=== PATIENT | female | born 1935 | race Caucasian/White ===

== ENCOUNTER 2016-07-19 13:25 | Inpatient (IN) | payer OTHER ==
--- NOTE | 2016-07-19 13:55 | PDOC ---
History of Present Illness - General History Source: Patient, Old Records - History of Present Illness Initial Comments: 07/19/16 14:18 The patient is a 81 year old female brought via EMS, with a significant past medical history of skin CA (nose), AFIB, HTN and diabetes, who presents to the emergency department with left lower extremity pain and weakness. She reports that she has been having this complication for the past few months but exacerbated yesterday. She states that she is unable to walk due to the pain and the lack of power in her extremity. She reports that the pain is localized throughout her extremity, ranging from mild to moderate. The patient denies chest pain, shortness of breath, headache and dizziness. Denies fever, chills, nausea, vomit, diarrhea and constipation. Denies dysuria, frequency, urgency and hematuria. Allergies: None Past surgical history: left 3rd and 4th toe amputation Social history: No alcohol, tobacco or drug use reported PMD - Dr. Ina Tucker Vascular surgeon - Dr. Pitts <Qasim Tovar - Last Filed: 07/19/16 17:08> <Farhan Chambers - Last Filed: 07/19/16 17:14> - General Stated Complaint: LEG PAIN Time Seen by Provider: 07/19/16 13:55 Past History <Qasim Tovar - Last Filed: 07/19/16 17:08> - Past Medical History Cancer: Yes (SKIN CANCER-NOSE) Diabetes: Yes HTN: Yes - Surgical History Orthopedic Surgery: Yes - Psycho/Social/Smoking Cessation Hx Anxiety: No Suicidal Ideation: No Smoking Status: No Smoking History: Never smoked Have you smoked in the past 12 months: No Number of Cigarettes Smoked Daily: 0 Hx Alcohol Use: No Drug/Substance Use Hx: No Substance Use Type: None Hx Substance Use Treatment: No <Farhan Chambers - Last Filed: 07/19/16 17:14> - Past Medical History Allergies/Adverse Reactions: Allergies Allergy/AdvReac Type Severity Reaction Status Date / Time No Known Allergies Allergy Verified 03/09/16 12:46 Home Medications: Ambulatory Orders Alprazolam [Alprazolam ER] 1 mg PO BID 03/09/16 Apixaban [Eliquis] 2.5 mg PO BID 03/09/16 Linagliptin [Tradjenta] 5 mg PO DAILY 03/09/16 Amlodipine Besylate [Norvasc -] 5 mg PO DAILY #30 tablet 03/20/16 Furosemide [Lasix -] 40 mg PO DAILY #30 tablet 03/20/16 Metoprolol Succinate [Toprol XL -] 50 mg PO BID #60 tab.sr.24h 03/20/16 Review of Systems - Review of Systems Able to Perform ROS?: Yes Comments:: 07/19/16 14:18 GENERAL/CONSTITUTIONAL: No fever or chills. HEAD, EYES, EARS, NOSE AND THROAT: No change in vision. No ear pain or discharge. No sore throat. CARDIOVASCULAR: No chest pain or shortness of breath RESPIRATORY: No cough, wheezing, or hemoptysis. GASTROINTESTINAL: No nausea, vomiting, diarrhea or constipation. GENITOURINARY: No dysuria, frequency, or change in urination. MUSCULOSKELETAL: No joint or muscle swelling or pain. No neck or back pain. EXTREMITIES: +Left lower extremity pain and weakness. SKIN: No rash NEUROLOGIC: No headache, vertigo, loss of consciousness, or change in strength/ sensation. ENDOCRINE: No increased thirst. No abnormal weight change HEMATOLOGIC/LYMPHATIC: No anemia, easy bleeding, or history of blood clots. ALLERGIC/IMMUNOLOGIC: No hives or skin allergy. <Qasim Tovar - Last Filed: 07/19/16 17:08> *Physical Exam - Physical Exam Comments: 07/19/16 14:19 GENERAL: +Morbidly obese. Awake, alert, and fully oriented, in no acute distress HEAD: No signs of trauma, normocephalic, atraumatic EYES: PERRLA, EOMI, sclera anicteric, conjunctiva clear ENT: Auricles normal inspection, hearing grossly normal, nares patent, oropharynx clear without exudates. Moist mucosa NECK: Normal ROM, supple, no lymphadenopathy, JVD, or masses LUNGS: No distress, speaks full sentences, clear to auscultation bilaterally HEART: Regular rate and rhythm, normal S1 and S2, no murmurs, rubs or gallops, peripheral pulses normal and equal bilaterally. ABDOMEN: Soft, nontender, normoactive bowel sounds. No guarding, no rebound. No masses EXTREMITIES: +Feet and calf are erythematous but not warm. Left foot 3rd and 4th toe amputation. Normal range of motion. No clubbing or cyanosis. NEUROLOGICAL: Cranial nerves II through XII grossly intact. Normal speech, no focal sensorimotor deficits SKIN: Warm, Dry, normal turgor, no rashes or lesions noted. <Qasim Tovar - Last Filed: 07/19/16 17:08> ED Treatment Course - LABORATORY CBC & Chemistry Diagram: 07/19/16 15:00 07/19/16 15:00 - RADIOLOGY Radiograph Interpretation: 07/19/16 17:08 Chest X-Ray Reviewed by: Dr. Jaiden Berry Impression: Patient rotated which marked;y limits evaluation. Bilateral foot x-ray Reviewed by: Dr. Jaiden Berry Impression: Marked demineralization which hinders evaluation. Faint linear density at the neck of the fourth and fifth distal left metatarsals raising possibility of fractures and recommend clinical correlation for point tenderness. Soft tissue swelling bilaterally consistent with cellulitis. There is question of tiny erosions at the IP joint of the big toe of the left foot, corrlated for possible septic arthritis. <Qasim Tovar - Last Filed: 07/19/16 17:08> - LABORATORY CBC & Chemistry Diagram: 07/19/16 15:00 07/19/16 15:00 <Farhan Chambers - Last Filed: 07/19/16 17:14> Medical Decision Making - Medical Decision Making 07/19/16 14:22 It is not clear wether she can't walk due to the pain or due to the weakness. <Qasim Tovar - Last Filed: 07/19/16 17:08> *DC/Admit/Observation/Transfer - Attestations Scribe Attestion: 07/19/16 14:18 Documentation prepared by Qasim Tovar, acting as medical research associate for Farhan Chambers MD <Qasim Tovar - Last Filed: 07/19/16 17:08> - Discharge Dispostion Admit: Yes - Attestations Physician Attestion: 07/19/16 13:55 I, Dr. Farhan Chambers, attest that this document has been prepared under my direction and personally reviewed by me in its entirety. I further attest, that it accurately reflects all work, treatment, procedures and medical decision -making performed by me. <Farhan Chambers - Last Filed: 07/19/16 17:14> Diagnosis at time of Disposition: Cellulitis of both feet - Discharge Dispostion Condition at time of disposition: Improved - Referrals Referrals: Ina Tucker MD [Primary Care Provider] -
[2016-07-19 15:16] LABS: BASOPHIL 0.9 % (0-2.0); EOSINOPHIL 2.2 % (0-4.5); MCH 26.7 pg (25.7-33.7); MCHC 32.1 g/dl (32.0-36.0); MEAN CELL VOLUME 83.3 fl (80-96); MEAN PLT VOLUME 8.5 fl (7.5-11.1); NEUTROPHILS 84.7 % (42.8-82.8); PLATELET COUNT 269 K/MM3 (134-434)
[2016-07-19 15:33] LABS: INR 1.4 (0.82-1.09); PROTHROMBIN TIME (PATIENT) 15.5 SEC (9.98-11.88)
[2016-07-19 15:35] LABS: ALBUMIN 3.2 g/dl (3.4-5.0); ANION GAP 10 (8-16); BILIRUBIN,TOTAL 0.3 mg/dL (0.2-1.0); CALCIUM 9.1 mg/dL (8.5-10.1); CO2 25 mmol/L (21-32); CREATININE 1.9 mg/dL (0.55-1.02); GLUCOSE,RANDOM 168 mg/dL (74-106); SGOT/AST 17 U/L (15-37); SGPT/ALT 20 U/L (12-78); TOT PROT 7.4 g/dl (6.4-8.2)
[2016-07-19 15:38] LABS: ALK PHOS 113 U/L (45-117); TROPONIN I < 0.02 ng/ml (0.00-0.05)
[2016-07-19 16:25] LABS: URINE APPEARANCE CLOUDY; URINE BILIRUBIN NEGATIVE (NEGATIVE); URINE COLOR LTYELLOW; URINE GLUCOSE (UA) NEGATIVE (NEGATIVE); URINE KETONE NEGATIVE (NEGATIVE); URINE NITRITE NEGATIVE (NEGATIVE); URINE UROBILINOGEN NEGATIVE E.U./dl (0.2-1.0)
[2016-07-19 16:48] LABS: ERYTHROCYTE SEDIMENTATION RATE 50 mm/hr (0-30)
[2016-07-19] MEDS ORDERED: VANCOMYCIN 1,000 MG in DEXTROSE 5%-WATER - 250 ML IVPB ONE (17:08)
[2016-07-19 17:09] LABS: URINE BLOOD 1+ (NEGATIVE); URINE LEUK ESTERASE 3+ (NEGATIVE); URINE PROTEIN 2+ (NEGATIVE)
[2016-07-19] MEDS ORDERED: PIPERACILLIN/TAZOB 3.375 GM/50 ML PRE-DOCKED IV ONE (17:09)
[2016-07-19 17:11] LABS: URINE BACTERIA MODERATE /hpf (NONE SEEN); URINE HYALINE CAST 4 /lpf; URINE MUCUS RARE; URINE RBC 1 /hpf (0-3); URINE WBC 107 /hpf (3-5)
[2016-07-19] MEDS ORDERED: VANCOMYCIN 1 GRAM (PRE-DOCKED) 250 ML IVPB ONE (17:31)
[2016-07-19] MEDS ORDERED: PIPERACILLIN/TAZOB 3.375 GM 50 ML IVPB ONE (17:32)
--- NOTE | 2016-07-19 20:04 | CONSULT ---
Consult Consult Specialty:: infectious diseases Referred by:: Reason for Consultation:: bilateral cellulitits - History of Present Illness Chief Complaint: unable to ambulate. pain in the legs History of Present Illness: 81 yo F ho Diabetes, h/o foot infections in the past requiring toe amputations, presents with increased unsteadiness on feet and swelling in feet. Was hospitalized in March of this past year and was seen by vascualr doctor, but has ot followed up with vascular as outpatient. Notes that she had seen her PMD and was to be seen again next week to re-examine her feet. Denies any fevers, but does note that her blood sugar was slightly higher lately. according to the patient she was ambulating about a week back and the legs started swelling and becoming red and patient could not ambulate any more and cane to the hospital also patient has not had any steady PCP and now is going to be seen by patient also noticed that she has small blisters on the legs which were not there before patient is c/o of p[ain in the legs - History Source History Provided By: Patient, Medical Record Limitations to Obtaining History: No Limitations - Past Medical History Cardio/Vascular: Yes: AFIB, CHF, HTN, Pulmonary Hypertension, Other (pad) Endocrine: Yes: Diabetes Mellitus - Past Surgical History Past Surgical History: Yes: Amputation - Alcohol/Substance Use Hx Alcohol Use: No - Smoking History Smoking history: Never smoked Have you smoked in the past 12 months: No Aproximately how many cigarettes per day: 0 - Social History ADL: Independent History of Recent Travel: No Home Medications - Allergies Allergies/Adverse Reactions: Allergies Allergy/AdvReac Type Severity Reaction Status Date / Time No Known Allergies Allergy Verified 03/09/16 12:46 - Home Medications Home Medications: Ambulatory Orders Alprazolam [Alprazolam ER] 1 mg PO BID PRN 03/09/16 Apixaban [Eliquis] 2.5 mg PO BID 03/09/16 Linagliptin [Tradjenta] 5 mg PO DAILY 03/09/16 Amlodipine Besylate [Norvasc -] 5 mg PO DAILY #30 tablet 03/20/16 Furosemide [Lasix -] 40 mg PO DAILY #30 tablet 03/20/16 Metoprolol Succinate [Toprol XL -] 50 mg PO BID #60 tab.sr.24h 03/20/16 Acetaminophen [Tylenol -] 1,000 mg PO PRN PRN 07/20/16 Paxil 20 mg PO DAILY 07/20/16 Review of Systems - Review of Systems Constitutional: reports: No Symptoms Eyes: reports: No Symptoms HENT: reports: No Symptoms Neck: reports: No Symptoms Cardiovascular: reports: No Symptoms Respiratory: reports: No Symptoms Gastrointestinal: reports: No Symptoms Genitourinary: reports: No Symptoms Musculoskeletal: reports: Extremity Pain, Muscle Pain, Other Integumentary: reports: Change in Color, Erythema, Other Neurological: reports: No Symptoms Endocrine: reports: No Symptoms Hematology/Lymphatic: reports: No Symptoms Psychiatric: reports: No Symptoms Physical Exam Vital Signs: Vital Signs Temperature 98.7 F 07/19/16 14:08 Pulse Rate 67 07/19/16 14:08 Respiratory Rate 18 07/19/16 14:08 Blood Pressure 150/70 07/19/16 14:08 O2 Sat by Pulse Oximetry (%) 98 07/19/16 14:28 Constitutional: Yes: Well Nourished, Calm, Obese Eyes: Yes: Conjunctiva Clear HENT: Yes: Atraumatic Neck: Yes: Supple, Trachea Midline Cardiovascular: Yes: Regular Rate and Rhythm, Pulse Irregular Respiratory: Yes: Regular, Poor Air Entry, Rhonchi Gastrointestinal: Yes: Normal Bowel Sounds, Soft Musculoskeletal: Yes: Muscle Pain, Other Extremities: Yes: Erythema (bilateral lower ext) Edema: LLE: 1+, RLE: 1+ Wound/Incision: Yes: Other Neurological: Yes: Alert, Oriented Psychiatric: Yes: Alert, Oriented Imaging - Results Chest X-ray: Report Reviewed, Image Reviewed Assessment/Plan Assessment/Plan (1) Cellulitis of both feet Code(s): L03.115 - CELLULITIS OF RIGHT LOWER LIMB L03.116 - CELLULITIS OF LEFT LOWER LIMB (2) Diabetes Code(s): E11.9 - TYPE 2 DIABETES MELLITUS WITHOUT COMPLICATIONS (3) Renal insufficiency Code(s): N28.9 - DISORDER OF KIDNEY AND URETER, UNSPECIFIED (4) Hypertension Code(s): I10 - ESSENTIAL (PRIMARY) HYPERTENSION (5) Afib Code(s): I48.91 - UNSPECIFIED ATRIAL FIBRILLATION plan will do xray of the legs to see any findings iv abx elevation of the legs close monitoring
--- NOTE | 2016-07-19 20:07 | HP ---
Admitting History and Physical - Admission Chief Complaint: foot pain, unstaediness History of Present Illness: 81 yo F ho Diabetes, h/o foot infections in the past requiring toe amputations, presents with increased unsteadiness on feet and swelling in feet. Was hospitalized in March of this past year [facility], but has ot followed up with vascular as outpatient. Notes that she had seen her PMD and was to be seen again next week to re-examine her feet. Denies any fevers, but does note that her blood sugar was slightly higher lately. History Source: Patient, Medical Record Limitations to Obtaining History: No Limitations - Past Medical History Cardiovascular: Yes: AFIB, CHF, HTN, Pulmonary Hypertension, Other (pad) Renal/: Yes: Renal Inusuff Endocrine: Yes: Diabetes Mellitus - Past Surgical History Past Surgical History: Yes: Amputation - Smoking History Smoking history: Never smoked Have you smoked in the past 12 months: No Aproximately how many cigarettes per day: 0 - Alcohol/Substance Use Hx Alcohol Use: No - Social History ADL: Independent Occupation: former clerical work History of Recent Travel: No Other Social History: , 1 son Home Medications - Allergies Allergies/Adverse Reactions: Allergies Allergy/AdvReac Type Severity Reaction Status Date / Time No Known Allergies Allergy Verified 03/09/16 12:46 - Home Medications Home Medications: Ambulatory Orders Alprazolam [Alprazolam ER] 1 mg PO BID 03/09/16 Apixaban [Eliquis] 2.5 mg PO BID 03/09/16 Linagliptin [Tradjenta] 5 mg PO DAILY 03/09/16 Amlodipine Besylate [Norvasc -] 5 mg PO DAILY #30 tablet 03/20/16 Furosemide [Lasix -] 40 mg PO DAILY #30 tablet 03/20/16 Metoprolol Succinate [Toprol XL -] 50 mg PO BID #60 tab.sr.24h 03/20/16 Family Disease History - Family Disease History Family History: Unremarkable Review of Systems - Review of Systems Constitutional: denies: Chills, Fever, Loss of Appetite Eyes: reports: No Symptoms HENT: denies: Difficult Swallowing, Epistaxis Neck: denies: Decreased ROM, Stiffness Cardiovascular: denies: Chest Pain, Palpitations Respiratory: denies: Cough, SOB Gastrointestinal: denies: Abdominal Pain, Bloating, Diarrhea, Nausea, Vomiting Genitourinary: denies: Burning, Discharge, Dysuria Neurological: denies: Change in LOC Physical Examination Vital Signs: Vital Signs Temperature 98.7 F 07/19/16 14:08 Pulse Rate 67 07/19/16 14:08 Respiratory Rate 18 07/19/16 14:08 Blood Pressure 150/70 07/19/16 14:08 O2 Sat by Pulse Oximetry (%) 98 07/19/16 14:28 Constitutional: Yes: No Distress, Calm Eyes: Yes: Conjunctiva Clear, EOM Intact, PERRL HENT: Yes: Atraumatic, Normocephalic Neck: Yes: Supple, Trachea Midline Cardiovascular: Yes: Regular Rate and Rhythm, S1, S2. No: Murmur Respiratory: Yes: Regular, CTA Bilaterally. No: Rales, Rhonchi, Wheezes Gastrointestinal: Yes: Normal Bowel Sounds, Soft. No: Distention, Tenderness Extremities: Yes: Other (amputated toes on b/l feet, erythema, mild edema) Edema: Yes Edema: LLE: Trace, RLE: Trace Neurological: Yes: Alert, Oriented Labs: Laboratory Tests 07/19/16 07/19/16 07/19/16 15:00 15:00 15:00 WBC 15.0 H RBC 3.84 Hgb 10.3 L Hct 32.0 L MCV 83.3 MCHC 32.1 RDW 15.0 Plt Count 269 MPV 8.5 Neutrophils % 84.7 H Lymphocytes % 6.2 L D Monocytes % 6.0 Eosinophils % 2.2 Basophils % 0.9 ESR 50 H INR 1.40 H Sodium 142 Potassium 4.1 Chloride 107 Carbon Dioxide 25 Anion Gap 10 BUN 59 H Creatinine 1.9 H Creat Clearance w eGFR 25.44 Random Glucose 168 H D Lactic Acid Calcium 9.1 Total Bilirubin 0.3 AST 17 D ALT 20 Alkaline Phosphatase 113 Creatine Kinase 119 Troponin I < 0.02 Total Protein 7.4 Albumin 3.2 L Urine Color Urine Appearance Urine pH Ur Specific [place] Urine Protein Urine Glucose (UA) Urine Ketones Urine Blood Urine Nitrite Urine Bilirubin Urine Urobilinogen Ur Leukocyte Esterase Urine RBC Urine WBC Ur Epithelial Cells Urine Bacteria Hyaline Casts Urine Mucus 07/19/16 07/19/16 15:00 15:50 WBC RBC Hgb Hct MCV MCHC RDW Plt Count MPV Neutrophils % Lymphocytes % Monocytes % Eosinophils % Basophils % ESR INR Sodium Potassium Chloride Carbon Dioxide Anion Gap BUN Creatinine Creat Clearance w eGFR Random Glucose Lactic Acid 1.056 Calcium Total Bilirubin AST ALT Alkaline Phosphatase Creatine Kinase Troponin I Total Protein Albumin Urine Color Ltyellow Urine Appearance Cloudy Urine pH 5.0 Ur Specific [place] 1.012 Urine Protein 2+ H Urine Glucose (UA) Negative Urine Ketones Negative Urine Blood 1+ H Urine Nitrite Negative Urine Bilirubin Negative Urine Urobilinogen Negative Ur Leukocyte Esterase 3+ H Urine RBC 1 Urine WBC 107 Ur Epithelial Cells Rare Urine Bacteria Moderate Hyaline Casts 4 Urine Mucus Rare Problem List - Problems (1) Cellulitis of both feet Assessment/Plan: -start abx, -id consult -vascular consult, as h/o toe amputations (PAD?) -IV lasix for now (was on PO at home) Code(s): L03.115 - CELLULITIS OF RIGHT LOWER LIMB L03.116 - CELLULITIS OF LEFT LOWER LIMB (2) Diabetes Assessment/Plan: -start novolog sliding scale Code(s): E11.9 - TYPE 2 DIABETES MELLITUS WITHOUT COMPLICATIONS (3) Renal insufficiency Assessment/Plan: -renal to consult, given insufficiency and abx use Code(s): N28.9 - DISORDER OF KIDNEY AND URETER, UNSPECIFIED (4) Hypertension Assessment/Plan: -cont amlodipine, metoprolol Code(s): I10 - ESSENTIAL (PRIMARY) HYPERTENSION (5) Afib Assessment/Plan: -cont Eliquis Code(s): I48.91 - UNSPECIFIED ATRIAL FIBRILLATION
[2016-07-19] MEDS: INSULIN SLIDING SCALE (NOVOLOG) 1 VIAL SQ SCH (23:00)
[2016-07-19] MEDS: APIXABAN 2.5 MG TABLET PO SCH (23:00)
[2016-07-19] MEDS: METOPROLOL SUCCINATE 50 MG TAB.SR.24H (FP) PO SCH (23:00)
[2016-07-19 23:59] VITALS: BMI 47.2
[2016-07-20] MEDS: ALPRAZolam 2 MG TABLET PO PRN ×2 (00:24→10:20)
[2016-07-20] MEDS ORDERED: PIPERACILLIN/TAZOB 2.25 GM 2.25 GM in DEXTROSE 5%-WATER - 50 ML IVPB SCH (02:00)
[2016-07-20] MEDS: PIPERACILLIN/TAZOB 2.25 GM 50 ML IVPB SCH ×3 (02:19→17:03)
[2016-07-20] MEDS: INSULIN SLIDING SCALE (NOVOLOG) 1 VIAL SQ SCH ×4 (06:56→21:28)
[2016-07-20] MEDS: sitaGLIPtin PHOSPHATE 25 MG TABLET (FP) PO SCH (07:01)
[2016-07-20 07:30] LABS: BASOPHIL 0.5 % (0-2.0); EOSINOPHIL 2.3 % (0-4.5); MCH 27.1 pg (25.7-33.7); MCHC 32.3 g/dl (32.0-36.0); MEAN CELL VOLUME 84.1 fl (80-96); MEAN PLT VOLUME 8.1 fl (7.5-11.1); NEUTROPHILS 90.1 % (42.8-82.8); PLATELET COUNT 233 K/MM3 (134-434); RDW 14.8 % (11.6-15.6)
[2016-07-20 09:00] LABS: ALBUMIN 2.8 g/dl (3.4-5.0); CALCIUM 8.6 mg/dL (8.5-10.1)
[2016-07-20 09:05] LABS: BILIRUBIN,TOTAL 0.7 mg/dL (0.2-1.0); CREATININE 1.6 mg/dL (0.55-1.02); TOT PROT 6.6 g/dl (6.4-8.2)
[2016-07-20] MEDS ORDERED: PATIENT'S OWN MEDICATION (NON-FORMULARY) (Linagliptin [Tradjenta] 5 MG) PO SCH (10:00)
[2016-07-20] MEDS: METOPROLOL SUCCINATE 50 MG TAB.SR.24H (FP) PO SCH ×2 (10:18→21:30)
[2016-07-20] MEDS: amLODIPine BESYLATE 5 MG TABLET (FP) PO SCH (10:18)
[2016-07-20] MEDS: APIXABAN 2.5 MG TABLET PO SCH ×2 (10:18→21:30)
[2016-07-20] MEDS: FUROSEMIDE 40 MG/4 ML INJECTABLE VIAL IVPUSH SCH (10:19)
[2016-07-20] MEDS: NYSTATIN POWDER 100,000 UNITS/GM - 15 GM TOPICAL POWDER TP SCH ×2 (10:19→21:28)
[2016-07-20] MEDS: VANCOMYCIN 1 GRAM (PRE-DOCKED) 250 ML IVPB SCH (10:19)
--- NOTE | 2016-07-20 12:42 | CONSULT ---
- Consultation REQUESTING PROVIDER: Dr. Patiño CONSULT REQUEST: We have been asked to surgically evaluate this patient for cellulitis. PCP:Emir Sims MD HISTORY OF PRESENT ILLNESS:The patient is a 81 yo female with a pmhx of afib. She came to the ER for evaluation of swelling and redness to her lower ext. She states that her legs feel heavy and she is having difficulty ambulating.She was treated for these symptoms last March and was to follow-up with Dr. Patiño in the wound clinic and was scheduled to see him last week but was unable to because of the weather. She denies any fever or chills and hasn't noted any drainage. PMHx: DM, a fib, htn PSHx: hysterectomy, cancer excision on nose, 3/4 partial toe amp for trauma Home Medications Medication Instructions Recorded Alprazolam [Alprazolam ER] 1 mg PO BID PRN 03/09/16 Apixaban [Eliquis] 2.5 mg PO BID 03/09/16 Linagliptin [Tradjenta] 5 mg PO DAILY 03/09/16 Amlodipine Besylate [Norvasc -] 5 mg PO DAILY #30 tablet 03/20/16 Furosemide [Lasix -] 40 mg PO DAILY #30 tablet 03/20/16 Metoprolol Succinate [Toprol XL -] 50 mg PO BID #60 tab.sr.24h 03/20/16 Acetaminophen [Tylenol -] 1,000 mg PO PRN PRN 07/20/16 Paxil 20 mg PO DAILY 07/20/16 Allergies Allergy/AdvReac Type Severity Reaction Status Date / Time No Known Allergies Allergy Verified 03/09/16 12:46 REVIEW OF SYSTEMS: CONSTITUTIONAL: Absent: fever, chills CARDIOVASCULAR: Absent: chest pain, syncope Present: peripheral edema RESPIRATORY: Absent: cough, shortness of breath GASTROINTESTINAL: Absent: abdominal pain, abdominal distension GENITOURINARY: Absent: dysuria, hematuria MUSCULOSKELETAL: Present: joint pain, intermittent SKIN: Present: redness to lower ext, swelling HEMATOLOGIC/IMMUNOLOGIC: Absent: easy bleeding, easy bruising NEUROLOGIC: Absent: headache, seizure Present: unsteady gait, ambulates with walker PHYSICAL EXAM: GENERAL: Awake, alert, and fully oriented, in no acute distress. HEAD: Normal with no signs of trauma. EYES: PERRL, sclera anicteric, conjunctiva clear. NECK: Normal ROM, supple without lymphadenopathy, JVD, or masses. left EJ IV LUNGS: Clear to auscultation bilat anteriorly. No wheezes, and no crackles. No accessory muscle use. HEART: Regular rate and irregular rhythm. ABDOMEN: Soft, nontender, not distended. Obese MUSCULOSKELETAL: No bony deformities or tenderness. No CVA tenderness. UPPER EXTREMITIES: 2+ pulses, warm, well-perfused. No cyanosis. Cap refill <2 seconds. No peripheral edema. LOWER EXTREMITIES: 2+ pulses, warm, well-perfused. No calf tenderness. b/l peripheral edema. mild erythema with evidnece of decreased swelling. dry skin removed off of right great toe/second toe. Great toe with tip of toe with pink wound base. second toe with nail bed missing, small amount of purulent drainage from nail bed. 3/4 toe with healed amp site. NEUROLOGICAL: Normal speech, gait not observed. PSYCH: Cooperative. Good eye contact. Appropriate mood and affect. SKIN: Warm, dry, normal turgor, mild erythema to feet. Vital Signs Temperature 97.9 F 07/20/16 06:00 Pulse Rate 92 H 07/20/16 06:00 Respiratory Rate 18 07/20/16 06:00 Blood Pressure 155/75 07/20/16 06:00 O2 Sat by Pulse Oximetry (%) 96 07/20/16 09:00 Lab Results WBC 15.0 K/mm3 (4.0-10.0) H 07/20/16 06:00 RBC 3.70 M/mm3 (3.60-5.2) 07/20/16 06:00 Hgb 10.0 GM/dL (10.7-15.3) L 07/20/16 06:00 Hct 31.1 % (32.4-45.2) L 07/20/16 06:00 MCV 84.1 fl (80-96) 07/20/16 06:00 MCHC 32.3 g/dl (32.0-36.0) 07/20/16 06:00 RDW 14.8 % (11.6-15.6) 07/20/16 06:00 Plt Count 233 K/MM3 (134-434) 07/20/16 06:00 Sodium 144 mmol/L (136-145) 07/20/16 06:00 Potassium 4.2 mmol/L (3.5-5.1) 07/20/16 06:00 Chloride 110 mmol/L (98-107) H 07/20/16 06:00 Carbon Dioxide 24 mmol/L (21-32) 07/20/16 06:00 Anion Gap 10 (8-16) 07/20/16 06:00 BUN 48 mg/dL (7-18) H 07/20/16 06:00 Creatinine 1.6 mg/dL (0.55-1.02) H 07/20/16 06:00 Random Glucose 144 mg/dL (74-106) H 07/20/16 06:00 Calcium 8.6 mg/dL (8.5-10.1) 07/20/16 06:00 INR 1.40 (0.82-1.09) H 07/19/16 15:00 Xray to lower ext b/l: edema, no foreign bodies A/P: 81 yo female with chronic LE edema bilaterally with mild erythema/ swelling. Her lower ext show evidence of improved swelling. Also noted was a left great toe superficial great toe(tip) wound and missing left toenail Wound care orders for bacitracin to left great toe/second toe. She also needs b/l lower ext compression with ILYA wraps while in the hospital IV abx as per ID Pt to follow-up in wound clininc as an outpt D/w Dr. Patiño Visit type - Case Type Case Type: ED Admission - Emergency Emergency Visit: Yes ED Registration Date: 07/19/16 Care time: The patient presented to the Emergency Department on the above date and was hospitalized for further evaluation of their emergent condition. - New patient This patient is new to me today: Yes Date on this admission: 07/20/16 - Critical Care Critical Care patient: No
--- NOTE | 2016-07-20 12:47 | EKG ---
Test Reason : Blood Pressure : / mmHG Vent. 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
--- NOTE | 2016-07-20 13:35 | CONSULT ---
Consult - text type - Consultation Consultation Note: Renal Consult for CKD This is a 81 year old woman with PMhx of CKD stage 3 (Cr ~2 on most recent discharge). DM Type 2 + retinopathy, Hypertension, Peripheral Neuropathy who presented with tenderness, pain and difficulty ambulating and noted to have BUN/ Cr of 59/1.9. Pt states that her foot has become increaslinly red and tender with increased swelling. Pt denies any change in urine output. Has been on Lasix BID. No NSAID use. No SOB, chest pian, Abd pain, N/V/D, change in apatite. PMhx: as above Allergies: NKDA Family Hx: NC Social Hx: No T/A/D ROS: as per HPI, all other ros negative Home Meds: Home Medications Medication Instructions Recorded Alprazolam [Alprazolam ER] 1 mg PO BID PRN 03/09/16 Apixaban [Eliquis] 2.5 mg PO BID 03/09/16 Linagliptin [Tradjenta] 5 mg PO DAILY 03/09/16 Amlodipine Besylate [Norvasc -] 5 mg PO DAILY #30 tablet 03/20/16 Furosemide [Lasix -] 40 mg PO DAILY #30 tablet 03/20/16 Metoprolol Succinate [Toprol XL -] 50 mg PO BID #60 tab.sr.24h 03/20/16 Acetaminophen [Tylenol -] 1,000 mg PO PRN PRN 07/20/16 Paxil 20 mg PO DAILY 07/20/16 Vital Signs Temperature 100.1 F H 07/20/16 14:15 Pulse Rate 91 H 07/20/16 14:15 Respiratory Rate 20 07/20/16 14:15 Blood Pressure 161/82 07/20/16 14:15 O2 Sat by Pulse Oximetry (%) 96 07/20/16 09:00 Intake & Output 07/17/16 07/18/16 07/19/16 07/20/16 23:59 23:59 23:59 23:59 Intake Total 300 Output Total 300 700 Balance -300 -400 Weight 301 lb 8 oz 301 lb 8 oz Gen: NAD, awake and alert HEENT: NC/AT, MMM, No JVD, Neck Supple CVS: Irregular, No M/R Abd: Soft NT/ND Ext: 1+ edema in b/l LE, Left food in dressing. Clean and intact. : No bladder distension, no CVA tenderness Neuro: AAOX3, no focal defects CBC, BMP 07/20/16 06:00 07/20/16 06:00 Laboratory Tests 07/19/16 07/20/16 15:50 06:00 Calcium 8.6 Albumin 2.8 L Urine Protein 2+ H Urine Blood 1+ H Ur Leukocyte Esterase 3+ H Urine RBC 1 Urine WBC 107 Current Medications Acetaminophen (Tylenol -) 650 mg PO Q6H PRN PRN Reason: FEVER OR PAIN Alprazolam (Xanax -) 1 mg PO Q12H PRN Last Admin: 07/20/16 10:20 Dose: 1 mg Amlodipine Besylate (Norvasc -) 5 mg PO DAILY [facility] Last Admin: 07/20/16 10:18 Dose: 5 mg Apixaban (Eliquis -) 2.5 mg PO BID [facility] Last Admin: 07/20/16 10:18 Dose: 2.5 mg Furosemide (Lasix Injection -) 40 mg IVPUSH DAILY [facility] Last Admin: 07/20/16 10:19 Dose: 40 mg Vancomycin HCl (Vancomycin (Pre-Docked)) 250 mls @ 250 mls/hr IVPB DAILY [facility] PRN Reason: Protocol Last Admin: 07/20/16 10:19 Dose: 250 mls/hr Piperacillin Sod/Tazobactam Sod (Zosyn 2.25gm Ivpb (Pre-Docked)) 50 mls @ 100 mls/hr IVPB Q8H-IV [facility] PRN Reason: Protocol Last Admin: 07/20/16 10:18 Dose: 100 mls/hr Insulin Aspart (Novolog Vial Sliding Scale -) 1 vial SQ ACHS [facility] PRN Reason: Protocol Last Admin: 07/20/16 11:57 Dose: Not Given Metoprolol Succinate (Toprol Xl -) 50 mg PO BID [facility] Last Admin: 07/20/16 10:18 Dose: 50 mg Nystatin (Nystop Powder -) 1 applic TP BID [facility] Last Admin: 07/20/16 10:19 Dose: 1 applic Sitagliptin Phosphate (Januvia -) 25 mg PO DAILY@0700 [facility] Last Admin: 07/20/16 07:01 Dose: 25 mg A/P 81 year old woman with PMhx of CKD stage 3 (Cr ~2 on most recent discharge). DM Type 2 + retinopathy, Hypertension, Peripheral Neuropathy who presented with tenderness, pain and difficulty ambulating and noted to have BUN/Cr of 59/1.9. #CKD Stage 3 with subnephrotic proteinuria Renal function appears stable/slightly improved from last admission pt is non-oliguric Check UA, UPCR Continue presnt management including diuretics, trend BUN/Cr and electrolytes daily Dose all meds for Cr Cl ~30 Avoid NSAIDs, and IV contrast if possible #LE wound/Cellulitis Continue Emperic Abx as per ID Vascualar follow up pain control Redose Vanco by levels #DM Type 2 Check Hgb A1C Insulin sliding scale Thank you Will follow James Wright DO
--- NOTE | 2016-07-20 15:10 | PN ---
Progress Note, Physician Chief Complaint: Ms Polo complains that she has pain in both her legs and that they are still red. Denies cp, sob, n/v. - Current Medication List Current Medications: Active Medications Acetaminophen (Tylenol -) 650 mg PO Q6H PRN PRN Reason: FEVER OR PAIN Alprazolam (Xanax -) 1 mg PO Q12H PRN Last Admin: 07/20/16 10:20 Dose: 1 mg Amlodipine Besylate (Norvasc -) 5 mg PO DAILY [facility] Last Admin: 07/20/16 10:18 Dose: 5 mg Apixaban (Eliquis -) 2.5 mg PO BID [facility] Last Admin: 07/20/16 10:18 Dose: 2.5 mg Furosemide (Lasix Injection -) 40 mg IVPUSH DAILY [facility] Last Admin: 07/20/16 10:19 Dose: 40 mg Vancomycin HCl (Vancomycin (Pre-Docked)) 250 mls @ 250 mls/hr IVPB DAILY [facility] PRN Reason: Protocol Last Admin: 07/20/16 10:19 Dose: 250 mls/hr Piperacillin Sod/Tazobactam Sod (Zosyn 2.25gm Ivpb (Pre-Docked)) 50 mls @ 100 mls/hr IVPB Q8H-IV [facility] PRN Reason: Protocol Last Admin: 07/20/16 10:18 Dose: 100 mls/hr Insulin Aspart (Novolog Vial Sliding Scale -) 1 vial SQ ACHS [facility] PRN Reason: Protocol Last Admin: 07/20/16 11:57 Dose: Not Given Metoprolol Succinate (Toprol Xl -) 50 mg PO BID [facility] Last Admin: 07/20/16 10:18 Dose: 50 mg Nystatin (Nystop Powder -) 1 applic TP BID [facility] Last Admin: 07/20/16 10:19 Dose: 1 applic Sitagliptin Phosphate (Januvia -) 25 mg PO DAILY@0700 [facility] Last Admin: 07/20/16 07:01 Dose: 25 mg - Objective Vital Signs: Vital Signs Temperature 100.1 F H 07/20/16 14:15 Pulse Rate 91 H 07/20/16 14:15 Respiratory Rate 20 07/20/16 14:15 Blood Pressure 161/82 07/20/16 14:15 O2 Sat by Pulse Oximetry (%) 96 07/20/16 09:00 Constitutional: Yes: No Distress, Calm, Obese Cardiovascular: Yes: Pulse Irregular. No: Tachycardia, Gallop, Murmur, Rub Respiratory: Yes: Regular, CTA Bilaterally. No: Rales, Rhonchi, Wheezes Gastrointestinal: Yes: Normal Bowel Sounds, Soft. No: Distention, Tenderness Extremities: Yes: Erythema Edema: Yes Edema: LLE: 2+, RLE: 2+ Labs: CBC, BMP 07/20/16 06:00 07/20/16 06:00 INR, PTT INR 1.40 (0.82-1.09) H 07/19/16 15:00 Assessment/Plan (1) Cellulitis of both feet Assessment/Plan: -appreciate ID assistance -still with pain -continue vancomycin and zosyn per ID -follow up cultures -vascular surgery consulted, ? insufficiency Code(s): L03.115 - CELLULITIS OF RIGHT LOWER LIMB L03.116 - CELLULITIS OF LEFT LOWER LIMB (2) Diabetes Assessment/Plan: -continue januvia -diabetic diet and SSI -check HgbA1c Code(s): E11.9 - TYPE 2 DIABETES MELLITUS WITHOUT COMPLICATIONS (3) Renal insufficiency Assessment/Plan: -nephrology following and note reviewed -continue diuretics currently -monitor Code(s): N28.9 - DISORDER OF KIDNEY AND URETER, UNSPECIFIED (4) Hypertension Assessment/Plan: -cont amlodipine, metoprolol Code(s): I10 - ESSENTIAL (PRIMARY) HYPERTENSION (5) Afib Assessment/Plan: -cont Eliquis and metoprolol Code(s): I48.91 - UNSPECIFIED ATRIAL FIBRILLATION
--- NOTE | 2016-07-20 16:55 | PN ---
Progress Note, Physician History of Present Illness: patient feels much better legs swelling better erythema less - Current Medication List Current Medications: Active Medications Acetaminophen (Tylenol -) 650 mg PO Q6H PRN PRN Reason: FEVER OR PAIN Alprazolam (Xanax -) 1 mg PO Q12H PRN Last Admin: 07/20/16 10:20 Dose: 1 mg Amlodipine Besylate (Norvasc -) 5 mg PO DAILY [facility] Last Admin: 07/20/16 10:18 Dose: 5 mg Apixaban (Eliquis -) 2.5 mg PO BID [facility] Last Admin: 07/20/16 10:18 Dose: 2.5 mg Bacitracin (Bacitracin -) 1 applic TP DAILY [facility] Furosemide (Lasix Injection -) 40 mg IVPUSH DAILY [facility] Last Admin: 07/20/16 10:19 Dose: 40 mg Vancomycin HCl (Vancomycin (Pre-Docked)) 250 mls @ 250 mls/hr IVPB DAILY [facility] PRN Reason: Protocol Last Admin: 07/20/16 10:19 Dose: 250 mls/hr Piperacillin Sod/Tazobactam Sod (Zosyn 2.25gm Ivpb (Pre-Docked)) 50 mls @ 100 mls/hr IVPB Q8H-IV [facility] PRN Reason: Protocol Last Admin: 07/20/16 10:18 Dose: 100 mls/hr Insulin Aspart (Novolog Vial Sliding Scale -) 1 vial SQ ACHS [facility] PRN Reason: Protocol Last Admin: 07/20/16 16:13 Dose: Not Given Metoprolol Succinate (Toprol Xl -) 50 mg PO BID [facility] Last Admin: 07/20/16 10:18 Dose: 50 mg Nystatin (Nystop Powder -) 1 applic TP BID [facility] Last Admin: 07/20/16 10:19 Dose: 1 applic Sitagliptin Phosphate (Januvia -) 25 mg PO DAILY@0700 [facility] Last Admin: 07/20/16 07:01 Dose: 25 mg - Objective Vital Signs: Vital Signs Temperature 100.1 F H 07/20/16 14:15 Pulse Rate 91 H 07/20/16 14:15 Respiratory Rate 20 07/20/16 14:15 Blood Pressure 161/82 07/20/16 14:15 O2 Sat by Pulse Oximetry (%) 96 07/20/16 09:00 Constitutional: Yes: Calm, Mild Distress Cardiovascular: Yes: Regular Rate and Rhythm Respiratory: Yes: Regular, CTA Bilaterally Gastrointestinal: Yes: Normal Bowel Sounds, Soft Genitourinary: Yes: Cisse Present Musculoskeletal: Yes: Other Extremities: Yes: Erythema (better bilat legs) Edema: LLE: Trace, RLE: Trace Integumentary: Yes: Erythema, Other Neurological: Yes: Alert, Oriented Psychiatric: Yes: Alert, Oriented Labs: CBC, BMP 07/20/16 06:00 07/20/16 06:00 INR, PTT INR 1.40 (0.82-1.09) H 07/19/16 15:00 Assessment/Plan Assessment/Plan (1) Cellulitis of both feet Code(s): L03.115 - CELLULITIS OF RIGHT LOWER LIMB L03.116 - CELLULITIS OF LEFT LOWER LIMB (2) Diabetes Code(s): E11.9 - TYPE 2 DIABETES MELLITUS WITHOUT COMPLICATIONS (3) Renal insufficiency Code(s): N28.9 - DISORDER OF KIDNEY AND URETER, UNSPECIFIED (4) Hypertension Code(s): I10 - ESSENTIAL (PRIMARY) HYPERTENSION (5) Afib Code(s): I48.91 - UNSPECIFIED ATRIAL FIBRILLATION plan continue iv abx xray legs looked at if does not show improvement will do ct scan of the legs close monitoring
[2016-07-21] MEDS: PIPERACILLIN/TAZOB 2.25 GM 50 ML IVPB SCH ×3 (01:18→17:28)
[2016-07-21] MEDS: sitaGLIPtin PHOSPHATE 25 MG TABLET (FP) PO SCH (06:00)
[2016-07-21] MEDS: INSULIN SLIDING SCALE (NOVOLOG) 1 VIAL SQ SCH ×4 (06:01→21:01)
[2016-07-21 07:47] LABS: BASOPHIL 0.9 % (0-2.0); EOSINOPHIL 3.2 % (0-4.5); MCH 27.2 pg (25.7-33.7); MCHC 32.2 g/dl (32.0-36.0); MEAN CELL VOLUME 84.3 fl (80-96); MEAN PLT VOLUME 8.3 fl (7.5-11.1); NEUTROPHILS 84.7 % (42.8-82.8); PLATELET COUNT 227 K/MM3 (134-434); RDW 15.1 % (11.6-15.6); WHITE BLOOD COUNT 14.5 K/mm3 (4.0-10.0)
[2016-07-21 08:06] LABS: ALBUMIN 2.6 g/dl (3.4-5.0); BILIRUBIN,TOTAL 0.5 mg/dL (0.2-1.0); CALCIUM 8.4 mg/dL (8.5-10.1); CREATININE 1.9 mg/dL (0.55-1.02); MAGNESIUM 1.9 mg/dL (1.8-2.4); PHOSPHOROUS 3.3 mg/dL (2.5-4.9); TOT PROT 6.2 g/dl (6.4-8.2)
--- NOTE | 2016-07-21 09:59 | PN ---
Physical Exam: SUBJECTIVE: Patient seen and examined. States she feels well, but weaker. States she is constipated Denies any chest pain or shortness of breath OBJECTIVE: left lung diminished incentive spirometer ordered Called by primary RN that pt has fever of 101F despite being on vanco and zosyn blood cultures/urine cultures/ua ordered I made Dr. Kruse aware or recurrent fevers Chest xray ordered and reviewed Hypertensive @ 173/97, Norvasc 5mg one time, will increase daily dose to Norvasc 10mg Vital Signs Period Temp Pulse Resp BP Sys/Diego Pulse Ox Last 24 Hr 98.3 F-100.1 F 72-91 18-20 138-161/75-84 97 GENERAL: The patient is awake, alert, and fully oriented, in no acute distress. HEAD: Normal with no signs of trauma. EYES: PERRL, extraocular movements intact, sclera anicteric, conjunctiva clear. No ptosis. ENT: Ears normal, nares patent, oropharynx clear without exudates, moist mucous membranes. NECK: Trachea midline, full range of motion, supple. LUNGS: left lung diminished, right lung clear - encouraged to use incentive spirometer HEART: Regular rate and rhythm, S1, S2 without murmur, rub or gallop. ABDOMEN: Soft, nontender, nondistended, normoactive bowel sounds, no guarding, no rebound, no hepatosplenomegaly, no masses. EXTREMITIES: 2+ pulses, warm, well-perfused, no edema. NEUROLOGICAL: Normal speech, gait not observed. PSYCH: Normal mood, normal affect. SKIN: bilateral lower ext. cellulitis. Laboratory Results - last 24 hr 07/20/16 07/20/16 07/20/16 11:29 16:00 16:00 WBC RBC Hgb Hct MCV MCHC RDW Plt Count MPV Neutrophils % Lymphocytes % Monocytes % Eosinophils % Basophils % Sodium Potassium Chloride Carbon Dioxide Anion Gap BUN Creatinine Creat Clearance w eGFR POC Glucometer 189 Random Glucose Hemoglobin A1c % Calcium Phosphorus Magnesium Total Bilirubin AST ALT Alkaline Phosphatase Total Protein Albumin U Random Total Protein 20 H Urine Creatinine 18.4 07/20/16 07/20/16 07/21/16 16:11 20:21 05:41 WBC RBC Hgb Hct MCV MCHC RDW Plt Count MPV Neutrophils % Lymphocytes % Monocytes % Eosinophils % Basophils % Sodium Potassium Chloride Carbon Dioxide Anion Gap BUN Creatinine Creat Clearance w eGFR POC Glucometer 109 134 144 Random Glucose Hemoglobin A1c % Calcium Phosphorus Magnesium Total Bilirubin AST ALT Alkaline Phosphatase Total Protein Albumin U Random Total Protein Urine Creatinine 07/21/16 07/21/16 07/21/16 06:20 06:20 06:20 WBC 14.5 H RBC 3.57 L Hgb 9.7 L Hct 30.1 L MCV 84.3 MCHC 32.2 RDW 15.1 Plt Count 227 MPV 8.3 Neutrophils % 84.7 H Lymphocytes % 4.2 L D Monocytes % 7.0 Eosinophils % 3.2 Basophils % 0.9 Sodium 144 Potassium 4.0 Chloride 109 H Carbon Dioxide 27 Anion Gap 8 BUN 47 H Creatinine 1.9 H Creat Clearance w eGFR 25.44 POC Glucometer Random Glucose 130 H Hemoglobin A1c % 6.5 H D Calcium 8.4 L Phosphorus 3.3 Magnesium 1.9 Total Bilirubin 0.5 D AST 9 L ALT 12 D Alkaline Phosphatase 88 Total Protein 6.2 L Albumin 2.6 L U Random Total Protein Urine Creatinine Active Medications Generic Name Dose Route Start Last Admin Trade Name Freq PRN Reason Stop Dose Admin Acetaminophen 650 mg 07/19/16 20:23 Tylenol - PO Q6H PRN FEVER OR PAIN Alprazolam 1 mg 07/19/16 23:43 07/20/16 10:20 Xanax - PO 1 mg Q12H PRN Administration Amlodipine Besylate 5 mg 07/20/16 10:00 07/20/16 10:18 Norvasc - PO 5 mg DAILY [facility] Administration Apixaban 2.5 mg 07/19/16 22:00 07/20/16 21:30 Eliquis - PO 2.5 mg BID [facility] Administration Bacitracin 1 applic 07/21/16 10:00 Bacitracin - TP DAILY [facility] Furosemide 40 mg 07/20/16 10:00 07/20/16 10:19 Lasix Injection - IVPUSH 40 mg DAILY [facility] Administration Vancomycin HCl 250 mls @ 250 mls/hr 07/20/16 10:00 07/20/16 10:19 Vancomycin (Pre-Docked) IVPB 250 mls/hr DAILY [facility] Administration Protocol Piperacillin Sod/Tazobactam Sod 50 mls @ 100 mls/hr 07/20/16 02:00 07/21/16 01: 18 Zosyn 2.25gm Ivpb (Pre-Docked) IVPB 100 mls/hr Q8H-IV [facility] Administration Protocol Insulin Aspart 1 vial 07/19/16 22:00 07/21/16 06:01 Novolog Vial Sliding Scale - SQ Not Given ACHS [facility] Protocol Metoprolol Succinate 50 mg 07/19/16 22:00 07/20/16 21:30 Toprol Xl - PO 50 mg BID [facility] Administration Nystatin 1 applic 07/20/16 10:00 07/20/16 21:28 Nystop Powder - TP 1 applic BID [facility] Administration Sitagliptin Phosphate 25 mg 07/20/16 07:00 07/21/16 06:00 Januvia - PO 25 mg DAILY@0700 [facility] Administration ASSESSMENT/PLAN: Patient is an 81 year old female with a significant past medical history of diabetes, foot infections with toe amputations, hypertension, CHF, atrial fib, pulmonary hypertension and renal insufficiency. She presented to the ED on 07/19 with increased unsteadiness on feet and swelling in feet. She was recently hospitalized in March of this past year and was seen by vascular but did not follow up as an outpatient. ID Sepsis secondary of cellulitis of bilateral lower ext and/or UTI - acute SIRS criteria on admission Assessment/Plan: Leukocytosis on admission, now trending down wbc 15.5>14.5 On Vancomycin and Zosyn per ID UA 2+ protein, +1 blood, +3 urine leuk esterase Urine cultures growing lactose fermenting negative bacillus Monitor CBC, vitals urine output Febrile today 101F, blood cultures, ua, urine cultures ordered Chest xray ordered and reviewed Monitor Cardiology: Hypertension - chronic Assessment/Plan: BP elevated today, gave Norvasc 5mg one time for elevated BP Will increase Norvasc to 10mg daily, also on metoprolol 50mg BID Atrial fibrillation - chronic Assessment/Plan: On Eliquis and Metoprolol Endocrine: Diabetes Mellitus - chronic Assessment/Plan: On Januvia, diabetic diet, sliding scale hgba1c 6.5 : Renal Insufficiency - chronic Assessment/Plan: On Lasix 40mg daily Monitor bun/creat on diuretics followed by renal F.E.N. Fluids: on iv lasix, adequate PO Electrolytes: monitor bun/creat/bmp in am. Nutrition: diabetic diet Prophylaxis: GI: Protonix 40mg po daily DVT: Eliquis Disposition: Continues to require inpatient hospitalization. Full Code. Visit type - Emergency Visit Emergency Visit: Yes ED Registration Date: 07/19/16 Care time: The patient presented to the Emergency Department on the above date and was hospitalized for further evaluation of their emergent condition. - New Patient This patient is new to me today: Yes Date on this admission: 07/22/16 - Critical Care Critical Care patient: No - Discharge Referral Referred to [facility] Med P.C.: No
[2016-07-21] MEDS: amLODIPine BESYLATE 5 MG TABLET (FP) PO SCH (10:17)
[2016-07-21] MEDS: APIXABAN 2.5 MG TABLET PO SCH ×2 (10:17→21:01)
[2016-07-21] MEDS: METOPROLOL SUCCINATE 50 MG TAB.SR.24H (FP) PO SCH ×2 (10:17→21:01)
[2016-07-21] MEDS: VANCOMYCIN 1 GRAM (PRE-DOCKED) 250 ML IVPB SCH (10:17)
[2016-07-21] MEDS: NYSTATIN POWDER 100,000 UNITS/GM - 15 GM TOPICAL POWDER TP SCH ×2 (10:18→21:02)
[2016-07-21] MEDS: FUROSEMIDE 40 MG/4 ML INJECTABLE VIAL IVPUSH SCH (10:18)
[2016-07-21] MEDS: BACITRACIN 30 GM TUBE TOPICAL OINTMENT TP SCH (10:18)
[2016-07-21] MEDS ORDERED: PT OWN MED DRAWER 7, Y5N ONE (10:23)
[2016-07-21] MEDS ORDERED: POLYETHYLENE GLYCOL 3350 119 GM BTL PO ONE (10:23)
--- NOTE | 2016-07-21 12:57 | PN ---
Progress Note (short form) - Note Progress Note: Renal follow up for CKD Pt seen and examined at the bedside no acute complaints no fever or chills LE redness is improved good urine output Vital Signs Temperature 98.0 F 07/21/16 10:00 Pulse Rate 85 07/21/16 10:00 Respiratory Rate 18 07/21/16 10:00 Blood Pressure 155/82 07/21/16 10:00 O2 Sat by Pulse Oximetry (%) 97 07/21/16 09:00 Intake & Output 07/18/16 07/19/16 07/20/16 07/21/16 23:59 23:59 23:59 23:59 Intake Total 870 700 Output Total 300 3000 1650 Balance -300 -2130 -950 Weight 301 lb 8 oz 301 lb 8 oz 303 lb Gen: NAD, awake and alert CVS: Irregular, No M/R Abd: Soft NT/ND Ext: 1+ edema in b/l LE, Left food in dressing. Clean and intact. CBC, BMP 07/21/16 06:20 07/21/16 06:20 Laboratory Tests 07/19/16 07/20/16 07/20/16 15:50 16:00 16:00 MCV Hemoglobin A1c % Calcium Albumin Urine Protein 2+ H Urine Blood 1+ H Ur Leukocyte Esterase 3+ H U Random Total Protein 20 H Urine Creatinine 18.4 07/21/16 07/21/16 07/21/16 06:20 06:20 06:20 MCV 84.3 Hemoglobin A1c % 6.5 H D Calcium 8.4 L Albumin 2.6 L Urine Protein Urine Blood Ur Leukocyte Esterase U Random Total Protein Urine Creatinine Current Medications Acetaminophen (Tylenol -) 650 mg PO Q6H PRN PRN Reason: FEVER OR PAIN Alprazolam (Xanax -) 1 mg PO Q12H PRN Last Admin: 07/20/16 10:20 Dose: 1 mg Amlodipine Besylate (Norvasc -) 5 mg PO DAILY [facility] Last Admin: 07/21/16 10:17 Dose: 5 mg Apixaban (Eliquis -) 2.5 mg PO BID [facility] Last Admin: 07/21/16 10:17 Dose: 2.5 mg Bacitracin (Bacitracin -) 1 applic TP DAILY [facility] Last Admin: 07/21/16 10:18 Dose: 1 applic Docusate Sodium (Colace -) 100 mg PO TID [facility] Furosemide (Lasix Injection -) 40 mg IVPUSH DAILY [facility] Last Admin: 07/21/16 10:18 Dose: 40 mg Vancomycin HCl (Vancomycin (Pre-Docked)) 250 mls @ 250 mls/hr IVPB DAILY [facility] PRN Reason: Protocol Last Admin: 07/21/16 10:17 Dose: 250 mls/hr Piperacillin Sod/Tazobactam Sod (Zosyn 2.25gm Ivpb (Pre-Docked)) 50 mls @ 100 mls/hr IVPB Q8H-IV [facility] PRN Reason: Protocol Last Admin: 07/21/16 10:17 Dose: 100 mls/hr Insulin Aspart (Novolog Vial Sliding Scale -) 1 vial SQ ACHS [facility] PRN Reason: Protocol Last Admin: 07/21/16 12:36 Dose: Not Given Metoprolol Succinate (Toprol Xl -) 50 mg PO BID [facility] Last Admin: 07/21/16 10:17 Dose: 50 mg Nystatin (Nystop Powder -) 1 applic TP BID [facility] Last Admin: 07/21/16 10:18 Dose: 1 applic Sitagliptin Phosphate (Januvia -) 25 mg PO DAILY@0700 [facility] Last Admin: 07/21/16 06:00 Dose: 25 mg A/P 81 year old woman with PMhx of CKD stage 3 (Cr ~2 on most recent discharge). DM Type 2 + retinopathy, Hypertension, Peripheral Neuropathy who presented with tenderness, pain and difficulty ambulating and noted to have BUN/Cr of 59/1.9. #CKD Stage 3 with subnephrotic proteinuria Renal function now around levels she was discharged at last admission Contineu IV Lasix for management of edema pt does have subnephrotic proteinuria Trend BUN/Cr and electrolytes #LE wound/Cellulitis Continue Empiric Abx as per ID Vascular follow up Wound Care pain control Redose Vanco by levels James Wright DO
[2016-07-21] MEDS: DOCUSATE SODIUM 100 MG CAPSULE (FP) PO SCH ×2 (13:28→21:01)
[2016-07-21] MEDS: ACETAMINOPHEN 325 MG TABLET (FP) PO PRN (14:09)
[2016-07-21] MEDS ORDERED: amLODIPine BESYLATE 5 MG TABLET (FP) PO ONE (15:30)
[2016-07-21] MEDS: ONDANSETRON 4 MG/2 ML VIAL IVPUSH PRN (15:38)
[2016-07-21] MEDS ORDERED: ACETAMINOPHEN 325 MG TABLET (FP) PO ONE (17:42)
[2016-07-21 18:47] LABS: URINE APPEARANCE CLEAR; URINE BILIRUBIN NEGATIVE (NEGATIVE); URINE COLOR STRAW; URINE GLUCOSE (UA) NEGATIVE (NEGATIVE); URINE KETONE NEGATIVE (NEGATIVE); URINE LEUK ESTERASE NEGATIVE (NEGATIVE); URINE NITRITE NEGATIVE (NEGATIVE); URINE UROBILINOGEN NEGATIVE E.U./dl (0.2-1.0)
[2016-07-21 19:03] LABS: URINE BLOOD 2+ (NEGATIVE); URINE PROTEIN 1+ (NEGATIVE)
[2016-07-21 20:02] LABS: URINE MUCUS RARE; URINE RBC 7 /hpf (0-3); URINE WBC 2 /hpf (3-5)
[2016-07-21] MEDS ORDERED: INSULIN (NOVOLOG) ASPART 100 UNITS/ML 10ML VIAL ONE (20:37)
[2016-07-21] MEDS: ALPRAZolam 2 MG TABLET PO PRN (22:29)
[2016-07-22] MEDS: PIPERACILLIN/TAZOB 2.25 GM 50 ML IVPB SCH ×2 (02:10→09:58)
[2016-07-22] MEDS: DOCUSATE SODIUM 100 MG CAPSULE (FP) PO SCH ×3 (05:55→21:28)
[2016-07-22] MEDS: sitaGLIPtin PHOSPHATE 25 MG TABLET (FP) PO SCH (05:59)
[2016-07-22] MEDS: INSULIN SLIDING SCALE (NOVOLOG) 1 VIAL SQ SCH ×4 (05:59→21:28)
[2016-07-22 08:22] LABS: BASOPHIL 0.7 % (0-2.0); EOSINOPHIL 1.9 % (0-4.5); MCH 26.9 pg (25.7-33.7); MCHC 32.3 g/dl (32.0-36.0); MEAN CELL VOLUME 83.5 fl (80-96); MEAN PLT VOLUME 8.3 fl (7.5-11.1); NEUTROPHILS 81.3 % (42.8-82.8); PLATELET COUNT 221 K/MM3 (134-434); RDW 14.5 % (11.6-15.6)
[2016-07-22 08:54] LABS: ALBUMIN 2.5 g/dl (3.4-5.0); CALCIUM 8.4 mg/dL (8.5-10.1)
[2016-07-22 08:59] LABS: BILIRUBIN,TOTAL 0.7 mg/dL (0.2-1.0); CREATININE 2.3 mg/dL (0.55-1.02); PHOSPHOROUS 4.3 mg/dL (2.5-4.9); TOT PROT 6.2 g/dl (6.4-8.2)
[2016-07-22] MEDS: APIXABAN 2.5 MG TABLET PO SCH ×2 (09:58→21:27)
[2016-07-22] MEDS: VANCOMYCIN 1 GRAM (PRE-DOCKED) 250 ML IVPB SCH (09:58)
[2016-07-22] MEDS: METOPROLOL SUCCINATE 50 MG TAB.SR.24H (FP) PO SCH ×2 (09:58→21:27)
[2016-07-22] MEDS: FUROSEMIDE 40 MG/4 ML INJECTABLE VIAL IVPUSH SCH (09:58)
[2016-07-22] MEDS: amLODIPine BESYLATE 10 MG TABLET (FP) PO SCH (09:58)
[2016-07-22] MEDS: NYSTATIN POWDER 100,000 UNITS/GM - 15 GM TOPICAL POWDER TP SCH ×2 (09:59→21:28)
[2016-07-22] MEDS: BACITRACIN 30 GM TUBE TOPICAL OINTMENT TP SCH (09:59)
--- NOTE | 2016-07-22 12:29 | PN ---
Progress Note (short form) - Note Progress Note: Renal follow up for CKD Pt seen and examined at the bedside states that she feels better denies any sob but does have non-productive cough no fever or chills LE in wrap Vital Signs Temperature 98.4 F 07/22/16 10:00 Pulse Rate 76 07/22/16 10:00 Respiratory Rate 18 07/22/16 10:00 Blood Pressure 111/62 07/22/16 10:00 O2 Sat by Pulse Oximetry (%) 96 07/22/16 09:00 Intake & Output 07/19/16 07/20/16 07/21/16 07/22/16 23:59 23:59 23:59 23:59 Intake Total 870 1500 500 Output Total 300 3000 3150 300 Balance -300 -2130 -1650 200 Weight 301 lb 8 oz 301 lb 8 oz 303 lb 299 lb 9.6 oz Gen: NAD, awake and alert CVS: Irregular, No M/R Abd: Soft NT/ND Ext: LE in dressing, no significant sacral edema CBC, BMP 07/22/16 06:30 07/22/16 06:30 Laboratory Tests 07/22/16 06:30 Calcium 8.4 L Phosphorus 4.3 D Magnesium 2.0 Current Medications Acetaminophen (Tylenol -) 650 mg PO Q6H PRN PRN Reason: FEVER OR PAIN Last Admin: 07/21/16 14:09 Dose: 650 mg Alprazolam (Xanax -) 1 mg PO Q12H PRN Last Admin: 07/21/16 22:29 Dose: 1 mg Amlodipine Besylate (Norvasc -) 10 mg PO DAILY [facility] Last Admin: 07/22/16 09:58 Dose: 10 mg Apixaban (Eliquis -) 2.5 mg PO BID [facility] Last Admin: 07/22/16 09:58 Dose: 2.5 mg Bacitracin (Bacitracin -) 1 applic TP DAILY [facility] Last Admin: 07/22/16 09:59 Dose: 1 applic Docusate Sodium (Colace -) 100 mg PO TID [facility] Last Admin: 07/22/16 05:55 Dose: 100 mg Vancomycin HCl (Vancomycin (Pre-Docked)) 250 mls @ 250 mls/hr IVPB DAILY [facility] PRN Reason: Protocol Last Admin: 07/22/16 09:58 Dose: 250 mls/hr Piperacillin Sod/Tazobactam Sod (Zosyn 2.25gm Ivpb (Pre-Docked)) 50 mls @ 100 mls/hr IVPB Q8H-IV [facility] PRN Reason: Protocol Last Admin: 07/22/16 09:58 Dose: 100 mls/hr Insulin Aspart (Novolog Vial Sliding Scale -) 1 vial SQ ACHS [facility] PRN Reason: Protocol Last Admin: 07/22/16 11:35 Dose: Not Given Metoprolol Succinate (Toprol Xl -) 50 mg PO BID [facility] Last Admin: 07/22/16 09:58 Dose: 50 mg Nystatin (Nystop Powder -) 1 applic TP BID [facility] Last Admin: 07/22/16 09:59 Dose: 1 applic Ondansetron HCl (Zofran Injection) 4 mg IVPUSH Q6H PRN PRN Reason: NAUSEA AND/OR VOMITING Last Admin: 07/21/16 15:38 Dose: 4 mg Sitagliptin Phosphate (Januvia -) 25 mg PO DAILY@0700 [facility] Last Admin: 07/22/16 05:59 Dose: 25 mg A/P 81 year old woman with PMhx of CKD stage 3 (Cr ~2 on most recent discharge). DM Type 2 + retinopathy, Hypertension, Peripheral Neuropathy who presented with tenderness, pain and difficulty ambulating and noted to have BUN/Cr of 59/1.9. #CKD Stage 3 with subnephrotic proteinuria Cr now up trended to 2.3 volume status clinically improved., CXR showed no vascular congestion will hold diuretics for the time being, will need to be on maintenance PO diuretics but would trend BUN/Cr and ensure they are stable before starting can given PRN Lasix if pt experiences sob #LE wound/Cellulitis Continue Empiric Abx as per ID Vascular follow up Wound Care pain control Redose Vanco by levels (level ordered for tomorrow morning) #Anemia Hgb slowly down trending no acute indication for transfusion if Hgb persistently below 10 may require BOBO Check iron profile James rWight DO
--- NOTE | 2016-07-22 13:47 | PN ---
Physical Exam: SUBJECTIVE: Patient seen and examined. States she feels well, but weaker. Denies any chest pain or shortness of breath. Reports not eating well secondary to the fevers. OBJECTIVE: left lung diminished, right lung clear incentive spirometer ordered Tmax 102F on 07/22: re-cultured ID aware or recurrent fevers Chest xray ordered and reviewed Hypertensive @ 173/97 yesterday, Norvasc increased to 10mg daily. BP now better controlled and @ goal. PT evaluation ordered lower ext cellulitis and left great toe wound appear to be improving Urine culture + ecoli + ESBL OBJECTIVE: Vital Signs Period Temp Pulse Resp BP Sys/Diego Pulse Ox Last 24 Hr 98.3 F-102.0 F 76-112 18-20 111-173/62-97 96-97 GENERAL: The patient is awake, alert, and fully oriented, in no acute distress. HEAD: Normal with no signs of trauma. EYES: PERRL, extraocular movements intact, sclera anicteric, conjunctiva clear. No ptosis. ENT: Ears normal, nares patent, oropharynx clear without exudates, moist mucous membranes. NECK: Trachea midline, full range of motion, supple. LUNGS: left lung diminished, right lung clear - encouraged to use incentive spirometer HEART: Regular rate and rhythm ABDOMEN: Soft, nontender, nondistended, +bowel sounds, no guarding, no rebound, no hepatosplenomegaly, no masses. EXTREMITIES: 2+ pulses, warm, well-perfused, no edema. NEUROLOGICAL: Normal speech, gait not observed. PSYCH: Normal mood, normal affect. SKIN: bilateral lower ext. cellulitis, left great toe wound Laboratory Results - last 24 hr 07/21/16 07/21/16 07/21/16 16:08 18:00 20:20 WBC RBC Hgb Hct MCV MCHC RDW Plt Count MPV Neutrophils % Lymphocytes % Monocytes % Eosinophils % Basophils % Sodium Potassium Chloride Carbon Dioxide Anion Gap BUN Creatinine Creat Clearance w eGFR POC Glucometer 157 152 Random Glucose Calcium Phosphorus Magnesium Total Bilirubin AST ALT Alkaline Phosphatase Total Protein Albumin Urine Color Straw Urine Appearance Clear Urine pH 5.0 Ur Specific Helper 1.009 Urine Protein 1+ H Urine Glucose (UA) Negative Urine Ketones Negative Urine Blood 2+ H Urine Nitrite Negative Urine Bilirubin Negative Urine Urobilinogen Negative Ur Leukocyte Esterase Negative Urine RBC 7 Urine WBC 2 Urine Mucus Rare 07/22/16 07/22/16 07/22/16 05:06 06:30 06:30 WBC 14.0 H RBC 3.43 L Hgb 9.3 L Hct 28.7 L MCV 83.5 MCHC 32.3 RDW 14.5 Plt Count 221 MPV 8.3 Neutrophils % 81.3 Lymphocytes % 5.5 L D Monocytes % 10.6 H Eosinophils % 1.9 Basophils % 0.7 Sodium 142 Potassium 4.0 Chloride 104 Carbon Dioxide 28 Anion Gap 10 BUN 55 H Creatinine 2.3 H D Creat Clearance w eGFR 20.40 POC Glucometer 121 Random Glucose 107 H Calcium 8.4 L Phosphorus 4.3 D Magnesium 2.0 Total Bilirubin 0.7 D AST 5 L D ALT 12 Alkaline Phosphatase 81 Total Protein 6.2 L Albumin 2.5 L Urine Color Urine Appearance Urine pH Ur Specific Helper Urine Protein Urine Glucose (UA) Urine Ketones Urine Blood Urine Nitrite Urine Bilirubin Urine Urobilinogen Ur Leukocyte Esterase Urine RBC Urine WBC Urine Mucus 07/22/16 11:23 WBC RBC Hgb Hct MCV MCHC RDW Plt Count MPV Neutrophils % Lymphocytes % Monocytes % Eosinophils % Basophils % Sodium Potassium Chloride Carbon Dioxide Anion Gap BUN Creatinine Creat Clearance w eGFR POC Glucometer 161 Random Glucose Calcium Phosphorus Magnesium Total Bilirubin AST ALT Alkaline Phosphatase Total Protein Albumin Urine Color Urine Appearance Urine pH Ur Specific Helper Urine Protein Urine Glucose (UA) Urine Ketones Urine Blood Urine Nitrite Urine Bilirubin Urine Urobilinogen Ur Leukocyte Esterase Urine RBC Urine WBC Urine Mucus Active Medications Generic Name Dose Route Start Last Admin Trade Name Artisq PRN Reason Stop Dose Admin Acetaminophen 650 mg 07/19/16 20:23 07/21/16 14:09 Tylenol - PO 650 mg Q6H PRN Administration FEVER OR PAIN Alprazolam 1 mg 07/19/16 23:43 07/21/16 22:29 Xanax - PO 1 mg Q12H PRN Administration Amlodipine Besylate 10 mg 07/21/16 17:41 07/22/16 09:58 Norvasc - PO 10 mg DAILY [facility] Administration Apixaban 2.5 mg 07/19/16 22:00 07/22/16 09:58 Eliquis - PO 2.5 mg BID [facility] Administration Bacitracin 1 applic 07/21/16 10:00 07/22/16 09:59 Bacitracin - TP 1 applic DAILY [facility] Administration Docusate Sodium 100 mg 07/21/16 14:00 07/22/16 13:37 Colace - PO Not Given TID [facility] Vancomycin HCl 250 mls @ 250 mls/hr 07/20/16 10:00 07/22/16 09:58 Vancomycin (Pre-Docked) IVPB 250 mls/hr DAILY [facility] Administration Protocol Piperacillin Sod/Tazobactam Sod 50 mls @ 100 mls/hr 07/20/16 02:00 07/22/16 09: 58 Zosyn 2.25gm Ivpb (Pre-Docked) IVPB 100 mls/hr Q8H-IV [facility] Administration Protocol Insulin Aspart 1 vial 07/19/16 22:00 07/22/16 11:35 Novolog Vial Sliding Scale - SQ Not Given ACHS [facility] Protocol Metoprolol Succinate 50 mg 07/19/16 22:00 07/22/16 09:58 Toprol Xl - PO 50 mg BID [facility] Administration Nystatin 1 applic 07/20/16 10:00 07/22/16 09:59 Nystop Powder - TP 1 applic BID [facility] Administration Ondansetron HCl 4 mg 07/21/16 15:16 07/21/16 15:38 Zofran Injection IVPUSH 4 mg Q6H PRN Administration NAUSEA AND/OR VOMITING Sitagliptin Phosphate 25 mg 07/20/16 07:00 07/22/16 05:59 Januvia - PO 25 mg DAILY@0700 [facility] Administration ASSESSMENT/PLAN: Patient is an 81 year old female with a significant past medical history of diabetes, foot infections with toe amputations, hypertension, CHF, atrial fib, pulmonary hypertension and renal insufficiency. She presented to the ED on 07/19 with increased unsteadiness on feet and swelling in bilateral lower extremities. She was recently hospitalized in between 03/09/2017-03/20/2017 for YOLANDE and foot wounds/cellulitis and was seen by vascular but did not follow up as an outpatient. ID Sepsis secondary of cellulitis of bilateral lower ext and/or UTI - acute SIRS criteria on admission Assessment/Plan: Leukocytosis on admission, now trending down wbc 15.5>14 On Vancomycin and Zosyn per ID Vanco - both started on 07/20 UA 2+ protein, +1 blood, +3 urine leuk esterase Urine cultures show Ecoli + ESBL Fevers yesterday: Tmax 102F, pancultured Monitor CBC, vitals signs, urine output Chest xray ordered and reviewed continue to monitor ID following Cardiology: Hypertension - improved Assessment/Plan: BP @ goal with increase of Norvasc to 10mg daily, also on metoprolol 50mg BID Monitor and titrate as needed Atrial fibrillation - chronic Assessment/Plan: On Eliquis and Metoprolol Endocrine: Diabetes Mellitus - chronic Assessment/Plan: On Januvia, diabetic diet, sliding scale hgba1c 6.5 Hematology: Anemia - chronic Assessment/Plan: hmg/hct trending down, remains low stable monitor iron studies for a.m. : Renal Insufficiency - chronic Assessment/Plan: Lasix on hold as per renal, can give doses as needed Monitor bun/creat trending up: BUN/creat: 55/2.3 F.E.N. Fluids: on iv lasix, adequate PO Electrolytes: monitor bun/creat/bmp in am. Nutrition: diabetic diet Prophylaxis: GI: Protonix 40mg po daily DVT: Eliquis Disposition: Continues to require inpatient hospitalization. Full Code. Visit type - Emergency Visit Emergency Visit: Yes ED Registration Date: 07/19/16 Care time: The patient presented to the Emergency Department on the above date and was hospitalized for further evaluation of their emergent condition. - New Patient This patient is new to me today: No - Critical Care Critical Care patient: No - Discharge Referral Referred to [facility] Med [facility] No
[2016-07-22] MEDS: ACETAMINOPHEN 325 MG TABLET (FP) PO PRN (14:06)
--- NOTE | 2016-07-22 17:04 | PN ---
Progress Note, Physician History of Present Illness: patient stable legs still hurting overall feels better - Current Medication List Current Medications: Active Medications Acetaminophen (Tylenol -) 650 mg PO Q6H PRN PRN Reason: FEVER OR PAIN Last Admin: 07/22/16 14:06 Dose: 650 mg Alprazolam (Xanax -) 1 mg PO Q12H PRN Last Admin: 07/21/16 22:29 Dose: 1 mg Amlodipine Besylate (Norvasc -) 10 mg PO DAILY [facility] Last Admin: 07/22/16 09:58 Dose: 10 mg Apixaban (Eliquis -) 2.5 mg PO BID [facility] Last Admin: 07/22/16 09:58 Dose: 2.5 mg Bacitracin (Bacitracin -) 1 applic TP DAILY [facility] Last Admin: 07/22/16 09:59 Dose: 1 applic Docusate Sodium (Colace -) 100 mg PO TID [facility] Last Admin: 07/22/16 13:37 Dose: Not Given Ertapenem 1 gm/ Sodium (Chloride) 50 mls @ 50 mls/hr IVPB DAILY [facility] PRN Reason: Protocol Insulin Aspart (Novolog Vial Sliding Scale -) 1 vial SQ ACHS [facility] PRN Reason: Protocol Last Admin: 07/22/16 11:35 Dose: Not Given Metoprolol Succinate (Toprol Xl -) 50 mg PO BID [facility] Last Admin: 07/22/16 09:58 Dose: 50 mg Nystatin (Nystop Powder -) 1 applic TP BID [facility] Last Admin: 07/22/16 09:59 Dose: 1 applic Ondansetron HCl (Zofran Injection) 4 mg IVPUSH Q6H PRN PRN Reason: NAUSEA AND/OR VOMITING Last Admin: 07/21/16 15:38 Dose: 4 mg Sitagliptin Phosphate (Januvia -) 25 mg PO DAILY@0700 [facility] Last Admin: 07/22/16 05:59 Dose: 25 mg - Objective Vital Signs: Vital Signs Temperature 98.1 F 07/22/16 14:24 Pulse Rate 85 07/22/16 14:24 Respiratory Rate 16 07/22/16 14:24 Blood Pressure 159/66 07/22/16 14:24 O2 Sat by Pulse Oximetry (%) 96 07/22/16 09:00 Constitutional: Yes: Calm, Mild Distress, Obese Cardiovascular: Yes: Regular Rate and Rhythm Respiratory: Yes: Regular, On Nasal O2, Poor Air Entry Gastrointestinal: Yes: Normal Bowel Sounds, Soft Musculoskeletal: Yes: Other Extremities: Yes: Other Integumentary: Yes: Erythema (improving), Venous Stasis Changes, Other Neurological: Yes: Alert, Oriented Psychiatric: Yes: Alert, Oriented Labs: CBC, BMP 07/22/16 06:30 07/22/16 06:30 INR, PTT INR 1.40 (0.82-1.09) H 07/19/16 15:00 Assessment/Plan Assessment/Plan (1) Cellulitis of both feet Code(s): L03.115 - CELLULITIS OF RIGHT LOWER LIMB L03.116 - CELLULITIS OF LEFT LOWER LIMB (2) Diabetes Code(s): E11.9 - TYPE 2 DIABETES MELLITUS WITHOUT COMPLICATIONS (3) Renal insufficiency Code(s): N28.9 - DISORDER OF KIDNEY AND URETER, UNSPECIFIED (4) Hypertension Code(s): I10 - ESSENTIAL (PRIMARY) HYPERTENSION (5) Afib Code(s): I48.91 - UNSPECIFIED ATRIAL FIBRILLATION plan continue iv abx will await for urine cx to be back elevation of the legs physio
--- NOTE | 2016-07-22 17:07 | PN ---
Progress Note, Physician History of Present Illness: patient stable legs improving patient mentions that leg are better tried to come out of bed had a spike of fever - Current Medication List Current Medications: Active Medications Acetaminophen (Tylenol -) 650 mg PO Q6H PRN PRN Reason: FEVER OR PAIN Last Admin: 07/22/16 14:06 Dose: 650 mg Alprazolam (Xanax -) 1 mg PO Q12H PRN Last Admin: 07/21/16 22:29 Dose: 1 mg Amlodipine Besylate (Norvasc -) 10 mg PO DAILY [facility] Last Admin: 07/22/16 09:58 Dose: 10 mg Apixaban (Eliquis -) 2.5 mg PO BID [facility] Last Admin: 07/22/16 09:58 Dose: 2.5 mg Bacitracin (Bacitracin -) 1 applic TP DAILY [facility] Last Admin: 07/22/16 09:59 Dose: 1 applic Clindamycin HCl (Cleocin -) 300 mg PO Q6HPO [facility] Docusate Sodium (Colace -) 100 mg PO TID [facility] Last Admin: 07/22/16 13:37 Dose: Not Given Ertapenem 1 gm/ Sodium (Chloride) 50 mls @ 50 mls/hr IVPB DAILY [facility] PRN Reason: Protocol Insulin Aspart (Novolog Vial Sliding Scale -) 1 vial SQ ACHS [facility] PRN Reason: Protocol Last Admin: 07/22/16 11:35 Dose: Not Given Metoprolol Succinate (Toprol Xl -) 50 mg PO BID [facility] Last Admin: 07/22/16 09:58 Dose: 50 mg Nystatin (Nystop Powder -) 1 applic TP BID [facility] Last Admin: 07/22/16 09:59 Dose: 1 applic Ondansetron HCl (Zofran Injection) 4 mg IVPUSH Q6H PRN PRN Reason: NAUSEA AND/OR VOMITING Last Admin: 07/21/16 15:38 Dose: 4 mg Sitagliptin Phosphate (Januvia -) 25 mg PO DAILY@0700 [facility] Last Admin: 07/22/16 05:59 Dose: 25 mg - Objective Vital Signs: Vital Signs Temperature 98.1 F 07/22/16 14:24 Pulse Rate 85 07/22/16 14:24 Respiratory Rate 16 07/22/16 14:24 Blood Pressure 159/66 07/22/16 14:24 O2 Sat by Pulse Oximetry (%) 96 07/22/16 09:00 Constitutional: Yes: No Distress, Calm, Obese Cardiovascular: Yes: Regular Rate and Rhythm Respiratory: Yes: On Nasal O2, Poor Air Entry Gastrointestinal: Yes: Normal Bowel Sounds, Soft Musculoskeletal: Yes: WNL Extremities: Yes: Erythema (better), Other Integumentary: Yes: Erythema Wound/Incision: Yes: Dressing Dry and Intact Neurological: Yes: Alert, Oriented Psychiatric: Yes: Alert, Oriented Labs: CBC, BMP 07/22/16 06:30 07/22/16 06:30 INR, PTT INR 1.40 (0.82-1.09) H 07/19/16 15:00 Assessment/Plan Assessment/Plan (1) Cellulitis of both feet Code(s): L03.115 - CELLULITIS OF RIGHT LOWER LIMB L03.116 - CELLULITIS OF LEFT LOWER LIMB (2) Diabetes Code(s): E11.9 - TYPE 2 DIABETES MELLITUS WITHOUT COMPLICATIONS (3) Renal insufficiency Code(s): N28.9 - DISORDER OF KIDNEY AND URETER, UNSPECIFIED (4) Hypertension Code(s): I10 - ESSENTIAL (PRIMARY) HYPERTENSION (5) Afib Code(s): I48.91 - UNSPECIFIED ATRIAL FIBRILLATION esbl uti plan changed abx to ertapenam stopped vanco and zosyn started clinda will check the legs tomorrow again physio out of bed
[2016-07-22] MEDS: CLINDAMYCIN HCL 150 MG CAPSULE (FP) PO SCH (17:33)
[2016-07-22] MEDS: ERTAPENEM SODIUM 1 GM in SODIUM CHLORIDE 50 ML IVPB SCH (17:48)
[2016-07-22] MEDS ORDERED: INSULIN (NOVOLOG) ASPART 100 UNITS/ML 10ML VIAL ONE ×2 (18:27→21:02)
[2016-07-22] MEDS: ALPRAZolam 2 MG TABLET PO PRN (21:26)
[2016-07-23] MEDS: ACETAMINOPHEN 325 MG TABLET (FP) PO PRN ×2 (05:14→21:13)
[2016-07-23] MEDS: DOCUSATE SODIUM 100 MG CAPSULE (FP) PO SCH ×3 (06:30→21:12)
[2016-07-23] MEDS: sitaGLIPtin PHOSPHATE 25 MG TABLET (FP) PO SCH (06:55)
[2016-07-23] MEDS: CLINDAMYCIN HCL 150 MG CAPSULE (FP) PO SCH ×5 (06:55→23:15)
[2016-07-23] MEDS: INSULIN SLIDING SCALE (NOVOLOG) 1 VIAL SQ SCH ×4 (07:00→22:41)
[2016-07-23 07:28] LABS: BASOPHIL 0.5 % (0-2.0); EOSINOPHIL 2.1 % (0-4.5); MCH 26.7 pg (25.7-33.7); MCHC 32.2 g/dl (32.0-36.0); MEAN CELL VOLUME 82.9 fl (80-96); MEAN PLT VOLUME 8.2 fl (7.5-11.1); NEUTROPHILS 82.3 % (42.8-82.8); PLATELET COUNT 223 K/MM3 (134-434); RDW 14.9 % (11.6-15.6); WHITE BLOOD COUNT 13.6 K/mm3 (4.0-10.0)
[2016-07-23 08:03] LABS: CALCIUM 8.1 mg/dL (8.5-10.1); CREATININE 2.5 mg/dL (0.55-1.02); MAGNESIUM 2.1 mg/dL (1.8-2.4)
[2016-07-23 08:05] LABS: FERRITIN 160.173 ng/ml (6.9-282.5)
[2016-07-23] MEDS: METOPROLOL SUCCINATE 50 MG TAB.SR.24H (FP) PO SCH ×2 (09:38→21:12)
[2016-07-23] MEDS: APIXABAN 2.5 MG TABLET PO SCH ×2 (09:38→21:12)
[2016-07-23] MEDS: amLODIPine BESYLATE 10 MG TABLET (FP) PO SCH (09:38)
[2016-07-23] MEDS: NYSTATIN POWDER 100,000 UNITS/GM - 15 GM TOPICAL POWDER TP SCH ×2 (09:39→21:13)
[2016-07-23] MEDS: BACITRACIN 30 GM TUBE TOPICAL OINTMENT TP SCH (09:39)
[2016-07-23] MEDS ORDERED: PT OWN MED DRAWER 7, Y5N ONE (11:56)
--- NOTE | 2016-07-23 12:41 | PN ---
Progress Note (short form) - Note Progress Note: Renal follow up for CKD Pt seen and examined at the bedside no complaints Huang in place Vital Signs Temperature 99.2 F 07/23/16 10:00 Pulse Rate 88 07/23/16 10:25 Respiratory Rate 20 07/23/16 10:00 Blood Pressure 119/58 07/23/16 10:00 O2 Sat by Pulse Oximetry (%) 97 07/23/16 10:25 Intake & Output 07/20/16 07/21/16 07/22/16 07/23/16 23:59 23:59 23:59 23:59 Intake Total 870 1500 1300 200 Output Total 3000 3150 1600 400 Balance -2130 -1650 -300 -200 Weight 301 lb 8 oz 303 lb 299 lb 9.6 oz 294 lb 8 oz Gen: NAD, awake and alert CVS: Irregular, No M/R Abd: Soft NT/ND Ext: LE in dressing, no significant sacral edema CBC, BMP 07/23/16 06:05 07/23/16 06:05 Current Medications Acetaminophen (Tylenol -) 650 mg PO Q6H PRN PRN Reason: FEVER OR PAIN Last Admin: 07/23/16 05:14 Dose: 650 mg Alprazolam (Xanax -) 1 mg PO Q12H PRN Last Admin: 07/22/16 21:26 Dose: 1 mg Amlodipine Besylate (Norvasc -) 10 mg PO DAILY [facility] Last Admin: 07/23/16 09:38 Dose: 10 mg Apixaban (Eliquis -) 2.5 mg PO BID [facility] Last Admin: 07/23/16 09:38 Dose: 2.5 mg Bacitracin (Bacitracin -) 1 applic TP DAILY [facility] Last Admin: 07/23/16 09:39 Dose: 1 applic Clindamycin HCl (Cleocin -) 300 mg PO Q6HPO [facility] Last Admin: 07/23/16 12:25 Dose: 300 mg Docusate Sodium (Colace -) 100 mg PO TID [facility] Last Admin: 07/23/16 06:30 Dose: Not Given Ertapenem 1 gm/ Sodium (Chloride) 50 mls @ 50 mls/hr IVPB DAILY [facility] PRN Reason: Protocol Last Admin: 07/22/16 17:48 Dose: 50 mls/hr Insulin Aspart (Novolog Vial Sliding Scale -) 1 vial SQ ACHS [facility] PRN Reason: Protocol Last Admin: 07/23/16 12:22 Dose: Not Given Metoprolol Succinate (Toprol Xl -) 50 mg PO BID [facility] Last Admin: 07/23/16 09:38 Dose: 50 mg Nystatin (Nystop Powder -) 1 applic TP BID [facility] Last Admin: 07/23/16 09:39 Dose: 1 applic Ondansetron HCl (Zofran Injection) 4 mg IVPUSH Q6H PRN PRN Reason: NAUSEA AND/OR VOMITING Last Admin: 07/21/16 15:38 Dose: 4 mg Sitagliptin Phosphate (Januvia -) 25 mg PO DAILY@0700 [facility] Last Admin: 07/23/16 06:55 Dose: 25 mg A/P 81 year old woman with PMhx of CKD stage 3 (Cr ~2 on most recent discharge). DM Type 2 + retinopathy, Hypertension, Peripheral Neuropathy who presented with tenderness, pain and difficulty ambulating and noted to have BUN/Cr of 59/1.9. #CKD Stage 3 with subnephrotic proteinuria Cr continues to slowly up trend but this was expected as pt recived IV laisx yesterday morning continue to hold diureitcs for now trend BUN/Cr will avoid IV given LE edema d/c huang today #LE wound/Cellulitis Continue Empiric Abx as per ID Vascular follow up Wound Care pain control Redose Vanco by levels #Anemia Hgb slowly down trending no acute indication for transfusion if Hgb persistently below 10 may require BOBO iron studies pending James Wright DO
--- NOTE | 2016-07-23 13:09 | PN ---
Progress Note (short form) - Note Progress Note: SUBJECTIVE: Patient seen and examined. Febrile this morning. Denies any chest pain or shortness of breath. Denies nausea, vomiting, abdominal pain OBJECTIVE: Vital Signs Period Temp Pulse Resp BP Sys/Diego Pulse Ox Last 24 Hr 98.1 F-100.7 F 85-94 16-20 119-159/58-79 96-97 GENERAL: The patient is awake, alert, and fully oriented, in no acute distress. HEAD: Normal with no signs of trauma. EYES: PERRL, extraocular movements intact, sclera anicteric, conjunctiva clear. No ptosis. ENT: Ears normal, nares patent, oropharynx clear without exudates, moist mucous membranes. NECK: Trachea midline, full range of motion, supple. LUNGS: left lung diminished, right lung clear - encouraged to use incentive spirometer HEART: Regular rate and rhythm ABDOMEN: Soft, nontender, nondistended, +bowel sounds, no guarding, no rebound, no hepatosplenomegaly, no masses. EXTREMITIES: 2+ pulses, warm, well-perfused, no edema. NEUROLOGICAL: Normal speech, gait not observed. PSYCH: Normal mood, normal affect. SKIN: bilateral lower ext. cellulitis, left great toe wound CBC,CMP WBC 13.6 K/mm3 (4.0-10.0) H 07/23/16 06:05 RBC 3.32 M/mm3 (3.60-5.2) L 07/23/16 06:05 Hgb 8.9 GM/dL (10.7-15.3) L 07/23/16 06:05 Hct 27.5 % (32.4-45.2) L 07/23/16 06:05 MCV 82.9 fl (80-96) 07/23/16 06:05 MCHC 32.2 g/dl (32.0-36.0) 07/23/16 06:05 RDW 14.9 % (11.6-15.6) 07/23/16 06:05 Plt Count 223 K/MM3 (134-434) 07/23/16 06:05 MPV 8.2 fl (7.5-11.1) 07/23/16 06:05 Neutrophils % 82.3 % (42.8-82.8) 07/23/16 06:05 Lymphocytes % 5.3 % (8-40) L 07/23/16 06:05 Monocytes % 9.8 % (3.8-10.2) 07/23/16 06:05 Eosinophils % 2.1 % (0-4.5) 07/23/16 06:05 Basophils % 0.5 % (0-2.0) 07/23/16 06:05 ESR 50 mm/hr (0-30) H 07/19/16 15:00 Sodium 141 mmol/L (136-145) 07/23/16 06:05 Potassium 4.1 mmol/L (3.5-5.1) 07/23/16 06:05 Chloride 104 mmol/L (98-107) 07/23/16 06:05 Carbon Dioxide 26 mmol/L (21-32) 07/23/16 06:05 Anion Gap 11 (8-16) 07/23/16 06:05 BUN 63 mg/dL (7-18) H 07/23/16 06:05 Creatinine 2.5 mg/dL (0.55-1.02) H 07/23/16 06:05 Creat Clearance w eGFR 20.40 (>60) 07/22/16 06:30 POC Glucometer 137 UNITS (()) 07/23/16 12:18 Random Glucose 102 mg/dL (74-106) 07/23/16 06:05 Hemoglobin A1c % 6.5 % (4.8-6.0) H D 07/21/16 06:20 Lactic Acid 1.056 mmol/L (0.4-2.0) 07/19/16 15:00 Calcium 8.1 mg/dL (8.5-10.1) L 07/23/16 06:05 Phosphorus 4.0 mg/dL (2.5-4.9) 07/23/16 06:05 Magnesium 2.1 mg/dL (1.8-2.4) 07/23/16 06:05 Ferritin 160.173 ng/ml (6.9-282.5) 07/23/16 06:05 Total Bilirubin 0.7 mg/dL (0.2-1.0) D 07/22/16 06:30 AST 5 U/L (15-37) L D 07/22/16 06:30 ALT 12 U/L (12-78) 07/22/16 06:30 Alkaline Phosphatase 81 U/L (45-117) 07/22/16 06:30 Creatine Kinase 119 IU/L (26-192) 07/19/16 15:00 Troponin I < 0.02 ng/ml (0.00-0.05) 07/19/16 15:00 Total Protein 6.2 g/dl (6.4-8.2) L 07/22/16 06:30 Albumin 2.5 g/dl (3.4-5.0) L 07/22/16 06:30 Active Medications Acetaminophen (Tylenol -) 650 mg PO Q6H PRN PRN Reason: FEVER OR PAIN Last Admin: 07/23/16 05:14 Dose: 650 mg Alprazolam (Xanax -) 1 mg PO Q12H PRN Last Admin: 07/22/16 21:26 Dose: 1 mg Amlodipine Besylate (Norvasc -) 10 mg PO DAILY [facility] Last Admin: 07/23/16 09:38 Dose: 10 mg Apixaban (Eliquis -) 2.5 mg PO BID [facility] Last Admin: 07/23/16 09:38 Dose: 2.5 mg Bacitracin (Bacitracin -) 1 applic TP DAILY [facility] Last Admin: 07/23/16 09:39 Dose: 1 applic Clindamycin HCl (Cleocin -) 300 mg PO Q6HPO [facility] Last Admin: 07/23/16 12:25 Dose: 300 mg Docusate Sodium (Colace -) 100 mg PO TID [facility] Last Admin: 07/23/16 06:30 Dose: Not Given Ertapenem 1 gm/ Sodium (Chloride) 50 mls @ 50 mls/hr IVPB DAILY [facility] PRN Reason: Protocol Last Admin: 07/22/16 17:48 Dose: 50 mls/hr Insulin Aspart (Novolog Vial Sliding Scale -) 1 vial SQ ACHS [facility] PRN Reason: Protocol Last Admin: 07/23/16 12:22 Dose: Not Given Metoprolol Succinate (Toprol Xl -) 50 mg PO BID [facility] Last Admin: 07/23/16 09:38 Dose: 50 mg Nystatin (Nystop Powder -) 1 applic TP BID [facility] Last Admin: 07/23/16 09:39 Dose: 1 applic Ondansetron HCl (Zofran Injection) 4 mg IVPUSH Q6H PRN PRN Reason: NAUSEA AND/OR VOMITING Last Admin: 07/21/16 15:38 Dose: 4 mg Sitagliptin Phosphate (Januvia -) 25 mg PO DAILY@0700 [facility] Last Admin: 07/23/16 06:55 Dose: 25 mg ASSESSMENT/PLAN: Patient is an 81 year old female with a significant past medical history of diabetes, foot infections with toe amputations, hypertension, CHF, atrial fib, pulmonary hypertension and renal insufficiency. She presented to the ED on 07/19 with increased unsteadiness on feet and swelling in bilateral lower extremities. She was recently hospitalized in between 03/09/2017-03/20/2017 for YOLANDE and foot wounds/cellulitis and was seen by vascular but did not follow up as an outpatient. ID Sepsis secondary of cellulitis of bilateral lower ext and/or UTI - acute SIRS criteria on admission Assessment/Plan: Leukocytosis on admission, now trending down wbc 15.5>14>13.6 On Ertapenam and Clinda per ID 2nd day. UA 2+ protein, +1 blood, +3 urine leuk esterase Urine cultures show Ecoli + ESBL Fever today: 100.7 Monitor CBC, vitals signs, urine output Chest xray ordered and reviewed continue to monitor ID following Cardiology: Hypertension - improved Assessment/Plan: BP @ goal with increase of Norvasc to 10mg daily, also on metoprolol 50mg BID Monitor and titrate as needed Atrial fibrillation - chronic Assessment/Plan: On Eliquis and Metoprolol Endocrine: Diabetes Mellitus - chronic Assessment/Plan: On Januvia, diabetic diet, sliding scale hgba1c 6.5 Hematology: Anemia - chronic Assessment/Plan: hmg/hct trending down, remains low stable monitor iron studies for a.m. : Renal Insufficiency - chronic Assessment/Plan: Lasix on hold as per renal, can give doses as needed Monitor bun/creat trending up: BUN/creat: 55/2.3 F.E.N. Fluids: on iv lasix, adequate PO Electrolytes: monitor bun/creat/bmp in am. Nutrition: diabetic diet Prophylaxis: GI: Protonix 40mg po daily DVT: Eliquis Disposition: Continues to require inpatient hospitalization. Full Code.
--- NOTE | 2016-07-23 13:14 | PN ---
Progress Note, Physician History of Present Illness: patient stable legs improving swelling improving patient feels better - Current Medication List Current Medications: Active Medications Acetaminophen (Tylenol -) 650 mg PO Q6H PRN PRN Reason: FEVER OR PAIN Last Admin: 07/23/16 05:14 Dose: 650 mg Alprazolam (Xanax -) 1 mg PO Q12H PRN Last Admin: 07/22/16 21:26 Dose: 1 mg Amlodipine Besylate (Norvasc -) 10 mg PO DAILY [facility] Last Admin: 07/23/16 09:38 Dose: 10 mg Apixaban (Eliquis -) 2.5 mg PO BID [facility] Last Admin: 07/23/16 09:38 Dose: 2.5 mg Bacitracin (Bacitracin -) 1 applic TP DAILY [facility] Last Admin: 07/23/16 09:39 Dose: 1 applic Clindamycin HCl (Cleocin -) 300 mg PO Q6HPO [facility] Last Admin: 07/23/16 12:25 Dose: 300 mg Docusate Sodium (Colace -) 100 mg PO TID [facility] Last Admin: 07/23/16 06:30 Dose: Not Given Ertapenem 1 gm/ Sodium (Chloride) 50 mls @ 50 mls/hr IVPB DAILY [facility] PRN Reason: Protocol Last Admin: 07/22/16 17:48 Dose: 50 mls/hr Insulin Aspart (Novolog Vial Sliding Scale -) 1 vial SQ ACHS [facility] PRN Reason: Protocol Last Admin: 07/23/16 12:22 Dose: Not Given Metoprolol Succinate (Toprol Xl -) 50 mg PO BID [facility] Last Admin: 07/23/16 09:38 Dose: 50 mg Nystatin (Nystop Powder -) 1 applic TP BID [facility] Last Admin: 07/23/16 09:39 Dose: 1 applic Ondansetron HCl (Zofran Injection) 4 mg IVPUSH Q6H PRN PRN Reason: NAUSEA AND/OR VOMITING Last Admin: 07/21/16 15:38 Dose: 4 mg Sitagliptin Phosphate (Januvia -) 25 mg PO DAILY@0700 [facility] Last Admin: 07/23/16 06:55 Dose: 25 mg - Objective Vital Signs: Vital Signs Temperature 99.2 F 07/23/16 10:00 Pulse Rate 88 07/23/16 10:25 Respiratory Rate 20 07/23/16 10:00 Blood Pressure 119/58 07/23/16 10:00 O2 Sat by Pulse Oximetry (%) 97 07/23/16 10:25 Constitutional: Yes: No Distress, Calm, Obese Cardiovascular: Yes: Regular Rate and Rhythm Respiratory: Yes: Regular, Poor Air Entry Gastrointestinal: Yes: Normal Bowel Sounds, Soft Musculoskeletal: Yes: Other Extremities: Yes: Other (legs improving) Wound/Incision: Yes: Other (wound much better) Psychiatric: Yes: Alert Labs: CBC, BMP 07/23/16 06:05 07/23/16 06:05 INR, PTT INR 1.40 (0.82-1.09) H 07/19/16 15:00 Assessment/Plan Assessment/Plan (1) Cellulitis of both feet Code(s): L03.115 - CELLULITIS OF RIGHT LOWER LIMB L03.116 - CELLULITIS OF LEFT LOWER LIMB (2) Diabetes Code(s): E11.9 - TYPE 2 DIABETES MELLITUS WITHOUT COMPLICATIONS (3) Renal insufficiency Code(s): N28.9 - DISORDER OF KIDNEY AND URETER, UNSPECIFIED (4) Hypertension Code(s): I10 - ESSENTIAL (PRIMARY) HYPERTENSION (5) Afib Code(s): I48.91 - UNSPECIFIED ATRIAL FIBRILLATION esbl uti plan continue ertapenam elevation of legs
[2016-07-23] MEDS: ERTAPENEM SODIUM 1 GM in SODIUM CHLORIDE 50 ML IVPB SCH (14:40)
[2016-07-24] MEDS: DOCUSATE SODIUM 100 MG CAPSULE (FP) PO SCH ×3 (06:07→22:29)
[2016-07-24] MEDS: CLINDAMYCIN HCL 150 MG CAPSULE (FP) PO SCH ×3 (06:07→17:05)
[2016-07-24] MEDS: sitaGLIPtin PHOSPHATE 25 MG TABLET (FP) PO SCH (06:07)
[2016-07-24 07:08] LABS: SERUM IRON 14 ug/dL (27-139); TOTAL IRON BINDING CAPACITY 191 ug/dL (250-450); UIBC 177 ug/dL (118-369)
[2016-07-24] MEDS: INSULIN SLIDING SCALE (NOVOLOG) 1 VIAL SQ SCH ×4 (07:09→22:28)
[2016-07-24 08:40] LABS: BASOPHIL 0.7 % (0-2.0); EOSINOPHIL 2.3 % (0-4.5); MCHC 32.7 g/dl (32.0-36.0); MEAN CELL VOLUME 82.4 fl (80-96); MEAN PLT VOLUME 7.8 fl (7.5-11.1); NEUTROPHILS 79.7 % (42.8-82.8); PLATELET COUNT 236 K/MM3 (134-434); RDW 14.7 % (11.6-15.6); WHITE BLOOD COUNT 11.1 K/mm3 (4.0-10.0)
[2016-07-24 09:05] LABS: CALCIUM 8.1 mg/dL (8.5-10.1); CREATININE 2.2 mg/dL (0.55-1.02); MAGNESIUM 2.5 mg/dL (1.8-2.4); PHOSPHOROUS 4.5 mg/dL (2.5-4.9)
[2016-07-24] MEDS: APIXABAN 2.5 MG TABLET PO SCH ×2 (09:16→22:26)
[2016-07-24] MEDS: METOPROLOL SUCCINATE 50 MG TAB.SR.24H (FP) PO SCH ×2 (09:16→22:26)
[2016-07-24] MEDS: amLODIPine BESYLATE 10 MG TABLET (FP) PO SCH (09:16)
[2016-07-24] MEDS: ERTAPENEM SODIUM 1 GM in SODIUM CHLORIDE 50 ML IVPB SCH (09:17)
[2016-07-24] MEDS: BACITRACIN 30 GM TUBE TOPICAL OINTMENT TP SCH (09:18)
[2016-07-24] MEDS: NYSTATIN POWDER 100,000 UNITS/GM - 15 GM TOPICAL POWDER TP SCH ×2 (09:18→22:28)
--- NOTE | 2016-07-24 13:42 | PN ---
Progress Note, Physician History of Present Illness: better legs still hurting - Current Medication List Current Medications: Active Medications Acetaminophen (Tylenol -) 650 mg PO Q6H PRN PRN Reason: FEVER OR PAIN Last Admin: 07/23/16 21:13 Dose: 650 mg Amlodipine Besylate (Norvasc -) 10 mg PO DAILY [facility] Last Admin: 07/24/16 09:16 Dose: 10 mg Apixaban (Eliquis -) 2.5 mg PO BID [facility] Last Admin: 07/24/16 09:16 Dose: 2.5 mg Bacitracin (Bacitracin -) 1 applic TP DAILY [facility] Last Admin: 07/24/16 09:18 Dose: 1 applic Clindamycin HCl (Cleocin -) 300 mg PO Q6HPO [facility] Last Admin: 07/24/16 13:06 Dose: 300 mg Docusate Sodium (Colace -) 100 mg PO TID [facility] Last Admin: 07/24/16 06:07 Dose: 100 mg Ertapenem 1 gm/ Sodium (Chloride) 50 mls @ 50 mls/hr IVPB DAILY [facility] PRN Reason: Protocol Last Admin: 07/24/16 09:17 Dose: 50 mls/hr Insulin Aspart (Novolog Vial Sliding Scale -) 1 vial SQ ACHS [facility] PRN Reason: Protocol Last Admin: 07/24/16 12:00 Dose: Not Given Metoprolol Succinate (Toprol Xl -) 50 mg PO BID [facility] Last Admin: 07/24/16 09:16 Dose: 50 mg Nystatin (Nystop Powder -) 1 applic TP BID [facility] Last Admin: 07/24/16 09:18 Dose: 1 applic Ondansetron HCl (Zofran Injection) 4 mg IVPUSH Q6H PRN PRN Reason: NAUSEA AND/OR VOMITING Last Admin: 07/21/16 15:38 Dose: 4 mg Sitagliptin Phosphate (Januvia -) 25 mg PO DAILY@0700 [facility] Last Admin: 07/24/16 06:07 Dose: 25 mg - Objective Vital Signs: Vital Signs Temperature 98.8 F 07/24/16 10:00 Pulse Rate 78 07/24/16 10:00 Respiratory Rate 18 07/24/16 10:00 Blood Pressure 118/70 07/24/16 10:00 O2 Sat by Pulse Oximetry (%) 94 L 07/24/16 10:00 Constitutional: Yes: Calm, Mild Distress Cardiovascular: Yes: Regular Rate and Rhythm Respiratory: Yes: Regular, On Nasal O2 Gastrointestinal: Yes: Normal Bowel Sounds, Soft Musculoskeletal: Yes: Other Extremities: Yes: Erythema (resolving) Edema: LLE: Trace, RLE: Trace Integumentary: Yes: Erythema Wound/Incision: Yes: Dressing Dry and Intact Neurological: Yes: Alert, Oriented Psychiatric: Yes: Alert, Oriented Labs: CBC, BMP 07/24/16 08:15 07/24/16 08:15 INR, PTT INR 1.40 (0.82-1.09) H 07/19/16 15:00 Assessment/Plan Assessment/Plan (1) Cellulitis of both feet Code(s): L03.115 - CELLULITIS OF RIGHT LOWER LIMB L03.116 - CELLULITIS OF LEFT LOWER LIMB (2) Diabetes Code(s): E11.9 - TYPE 2 DIABETES MELLITUS WITHOUT COMPLICATIONS (3) Renal insufficiency Code(s): N28.9 - DISORDER OF KIDNEY AND URETER, UNSPECIFIED (4) Hypertension Code(s): I10 - ESSENTIAL (PRIMARY) HYPERTENSION (5) Afib Code(s): I48.91 - UNSPECIFIED ATRIAL FIBRILLATION esbl uti plan continue ertapenam elevation of legs continue clinda
--- NOTE | 2016-07-24 15:50 | PN ---
Progress Note (short form) - Note Progress Note: SUBJECTIVE: Patient seen and examined. Denies any chest pain or shortness of breath. Denies nausea, vomiting, abdominal pain OBJECTIVE: Vital Signs Period Temp Pulse Resp BP Sys/Diego Pulse Ox Last 24 Hr 98.3 F-99.2 F 74-98 18-18 118-145/62-75 94-96 GENERAL: The patient is awake, alert, and fully oriented, in no acute distress. HEAD: Normal with no signs of trauma. EYES: PERRL, extraocular movements intact, sclera anicteric, conjunctiva clear. No ptosis. ENT: Ears normal, nares patent, oropharynx clear without exudates, moist mucous membranes. NECK: Trachea midline, full range of motion, supple. LUNGS: left lung diminished, right lung clear - encouraged to use incentive spirometer HEART: Regular rate and rhythm ABDOMEN: Soft, nontender, nondistended, +bowel sounds, no guarding, no rebound, no hepatosplenomegaly, no masses. EXTREMITIES: 2+ pulses, warm, well-perfused, no edema. NEUROLOGICAL: Normal speech, gait not observed. PSYCH: Normal mood, normal affect. SKIN: bilateral lower ext. cellulitis, left great toe wound CBC, BMP 07/24/16 08:15 07/24/16 08:15 Active Medications Acetaminophen (Tylenol -) 650 mg PO Q6H PRN PRN Reason: FEVER OR PAIN Last Admin: 07/23/16 05:14 Dose: 650 mg Alprazolam (Xanax -) 1 mg PO Q12H PRN Last Admin: 07/22/16 21:26 Dose: 1 mg Amlodipine Besylate (Norvasc -) 10 mg PO DAILY [facility] Last Admin: 07/23/16 09:38 Dose: 10 mg Apixaban (Eliquis -) 2.5 mg PO BID [facility] Last Admin: 07/23/16 09:38 Dose: 2.5 mg Bacitracin (Bacitracin -) 1 applic TP DAILY [facility] Last Admin: 07/23/16 09:39 Dose: 1 applic Clindamycin HCl (Cleocin -) 300 mg PO Q6HPO [facility] Last Admin: 07/23/16 12:25 Dose: 300 mg Docusate Sodium (Colace -) 100 mg PO TID [facility] Last Admin: 07/23/16 06:30 Dose: Not Given Ertapenem 1 gm/ Sodium (Chloride) 50 mls @ 50 mls/hr IVPB DAILY [facility] PRN Reason: Protocol Last Admin: 07/22/16 17:48 Dose: 50 mls/hr Insulin Aspart (Novolog Vial Sliding Scale -) 1 vial SQ ACHS [facility] PRN Reason: Protocol Last Admin: 07/23/16 12:22 Dose: Not Given Metoprolol Succinate (Toprol Xl -) 50 mg PO BID [facility] Last Admin: 07/23/16 09:38 Dose: 50 mg Nystatin (Nystop Powder -) 1 applic TP BID [facility] Last Admin: 07/23/16 09:39 Dose: 1 applic Ondansetron HCl (Zofran Injection) 4 mg IVPUSH Q6H PRN PRN Reason: NAUSEA AND/OR VOMITING Last Admin: 07/21/16 15:38 Dose: 4 mg Sitagliptin Phosphate (Januvia -) 25 mg PO DAILY@0700 [facility] Last Admin: 07/23/16 06:55 Dose: 25 mg ASSESSMENT/PLAN: Patient is an 81 year old female with a significant past medical history of diabetes, foot infections with toe amputations, hypertension, CHF, atrial fib, pulmonary hypertension and renal insufficiency. She presented to the ED on 07/19 with increased unsteadiness on feet and swelling in bilateral lower extremities. She was recently hospitalized in between 03/09/2017-03/20/2017 for YOLANDE and foot wounds/cellulitis and was seen by vascular but did not follow up as an outpatient. ID Sepsis secondary of cellulitis of bilateral lower ext and/or UTI - acute SIRS criteria on admission Assessment/Plan: Leukocytosis on admission, now trending down wbc 15.5>14>13.6> 11.1 On Ertapenam and Clinda per ID Urine cultures show Ecoli + ESBL continue to monitor ID following Cardiology: Hypertension - improved Assessment/Plan: BP @ goal with increase of Norvasc to 10mg daily, also on metoprolol 50mg BID Monitor and titrate as needed Atrial fibrillation - chronic Assessment/Plan: On Eliquis and Metoprolol Endocrine: Diabetes Mellitus - chronic Assessment/Plan: On Januvia, diabetic diet, sliding scale [id number] 6.5 Hematology: Anemia - chronic Assessment/Plan: hmg/hct trending down, remains low stable monitor iron studies for a.m. : Renal Insufficiency - chronic Assessment/Plan: Lasix on hold as per renal, can give doses as needed Monitor bun/creat trending up: BUN/creat: 55/2.3 F.E.N. Fluids: on iv lasix, adequate PO Electrolytes: monitor bun/creat/bmp in am. Nutrition: diabetic diet Prophylaxis: GI: Protonix 40mg po daily DVT: Eliquis Disposition: Continues to require inpatient hospitalization. Full Code.
[2016-07-25] MEDS: CLINDAMYCIN HCL 150 MG CAPSULE (FP) PO SCH ×5 (00:15→23:31)
[2016-07-25] MEDS: ONDANSETRON 4 MG/2 ML VIAL IVPUSH PRN ×2 (05:07→22:47)
[2016-07-25] MEDS: sitaGLIPtin PHOSPHATE 25 MG TABLET (FP) PO SCH (06:13)
[2016-07-25] MEDS: DOCUSATE SODIUM 100 MG CAPSULE (FP) PO SCH ×3 (06:14→21:49)
[2016-07-25] MEDS: INSULIN SLIDING SCALE (NOVOLOG) 1 VIAL SQ SCH ×4 (06:15→22:18)
[2016-07-25 08:11] LABS: BASOPHIL 0.4 % (0-2.0); EOSINOPHIL 5.3 % (0-4.5); MCHC 32.4 g/dl (32.0-36.0); MEAN CELL VOLUME 83.5 fl (80-96); MEAN PLT VOLUME 8.6 fl (7.5-11.1); NEUTROPHILS 79.1 % (42.8-82.8); PLATELET COUNT 253 K/MM3 (134-434); RDW 14.9 % (11.6-15.6); WHITE BLOOD COUNT 11.4 K/mm3 (4.0-10.0)
[2016-07-25 08:44] LABS: ALBUMIN 2.4 g/dl (3.4-5.0); BILIRUBIN,TOTAL 0.2 mg/dL (0.2-1.0); CALCIUM 8.4 mg/dL (8.5-10.1); CREATININE 2.2 mg/dL (0.55-1.02); TOT PROT 6.5 g/dl (6.4-8.2)
[2016-07-25] MEDS ORDERED: PT OWN MED DRAWER 7, Y5N ONE (09:11)
[2016-07-25] MEDS: BACITRACIN 30 GM TUBE TOPICAL OINTMENT TP SCH (09:22)
[2016-07-25] MEDS: METOPROLOL SUCCINATE 50 MG TAB.SR.24H (FP) PO SCH ×2 (09:22→21:49)
[2016-07-25] MEDS: amLODIPine BESYLATE 10 MG TABLET (FP) PO SCH (09:22)
[2016-07-25] MEDS: APIXABAN 2.5 MG TABLET PO SCH ×2 (09:22→21:49)
[2016-07-25] MEDS: ERTAPENEM SODIUM 1 GM in SODIUM CHLORIDE 50 ML IVPB SCH (09:22)
[2016-07-25] MEDS: NYSTATIN POWDER 100,000 UNITS/GM - 15 GM TOPICAL POWDER TP SCH ×2 (09:24→21:50)
--- NOTE | 2016-07-25 11:39 | PN ---
Progress Note, Physician Chief Complaint: Ms Polo says she is feeling much better. States her legs are not hurting unless someone touches them. She says her right arm has been swollen for the past few days. No cp, sob, n/v. - Current Medication List Current Medications: Active Medications Acetaminophen (Tylenol -) 650 mg PO Q6H PRN PRN Reason: FEVER OR PAIN Last Admin: 07/23/16 21:13 Dose: 650 mg Amlodipine Besylate (Norvasc -) 10 mg PO DAILY [facility] Last Admin: 07/25/16 09:22 Dose: 10 mg Apixaban (Eliquis -) 2.5 mg PO BID [facility] Last Admin: 07/25/16 09:22 Dose: 2.5 mg Bacitracin (Bacitracin -) 1 applic TP DAILY [facility] Last Admin: 07/25/16 09:22 Dose: 1 applic Clindamycin HCl (Cleocin -) 300 mg PO Q6HPO [facility] Last Admin: 07/25/16 06:13 Dose: 300 mg Docusate Sodium (Colace -) 100 mg PO TID [facility] Last Admin: 07/25/16 06:14 Dose: 100 mg Ertapenem 1 gm/ Sodium (Chloride) 50 mls @ 50 mls/hr IVPB DAILY [facility] PRN Reason: Protocol Last Admin: 07/25/16 09:22 Dose: 50 mls/hr Insulin Aspart (Novolog Vial Sliding Scale -) 1 vial SQ ACHS [facility] PRN Reason: Protocol Last Admin: 07/25/16 06:15 Dose: Not Given Metoprolol Succinate (Toprol Xl -) 50 mg PO BID [facility] Last Admin: 07/25/16 09:22 Dose: 50 mg Nystatin (Nystop Powder -) 1 applic TP BID [facility] Last Admin: 07/25/16 09:24 Dose: 1 applic Ondansetron HCl (Zofran Injection) 4 mg IVPUSH Q6H PRN PRN Reason: NAUSEA AND/OR VOMITING Last Admin: 07/25/16 05:07 Dose: 4 mg Sitagliptin Phosphate (Januvia -) 25 mg PO DAILY@0700 [facility] Last Admin: 07/25/16 06:13 Dose: 25 mg - Objective Vital Signs: Vital Signs Temperature 97.8 F 07/25/16 06:00 Pulse Rate 80 07/25/16 06:00 Respiratory Rate 18 07/25/16 09:00 Blood Pressure 154/77 07/25/16 06:00 O2 Sat by Pulse Oximetry (%) 95 07/25/16 09:00 Constitutional: Yes: No Distress, Calm, Obese Cardiovascular: Yes: Pulse Irregular. No: Tachycardia, Gallop, Murmur, Rub Respiratory: Yes: Regular, CTA Bilaterally. No: Rales, Rhonchi, Wheezes Gastrointestinal: Yes: Normal Bowel Sounds, Soft. No: Distention, Tenderness Extremities: No: Erythema Edema: Yes Edema: RUE: 2+, LLE: Trace, RLE: Trace Labs: CBC, BMP 07/25/16 07:40 07/25/16 07:40 INR, PTT INR 1.40 (0.82-1.09) H 07/19/16 15:00 Assessment/Plan (1) Cellulitis of both feet Assessment/Plan: -much improved -ID following -continue clindamycin and ertapenem per ID Code(s): L03.115 - CELLULITIS OF RIGHT LOWER LIMB L03.116 - CELLULITIS OF LEFT LOWER LIMB (2) Diabetes Assessment/Plan: -continue januvia -diabetic diet and SSI Code(s): E11.9 - TYPE 2 DIABETES MELLITUS WITHOUT COMPLICATIONS (3) Renal insufficiency Assessment/Plan: -nephrology following, follow up todays note -creatinine elevated from admission but improved from 2.5 -holding diuretics currently -monitor Code(s): N28.9 - DISORDER OF KIDNEY AND URETER, UNSPECIFIED (4) Hypertension Assessment/Plan: -cont amlodipine, metoprolol Code(s): I10 - ESSENTIAL (PRIMARY) HYPERTENSION (5) Afib Assessment/Plan: -cont Eliquis and metoprolol Code(s): I48.91 - UNSPECIFIED ATRIAL FIBRILLATION (6) RUE edema -patient with new onset edema -suspect secondary to line infiltration -will check duplex dopplers to evaluate for DVT, however lower suspicion since on eliquis
--- NOTE | 2016-07-25 14:18 | PN ---
Progress Note, Physician History of Present Illness: patient starting to improve was out to chair feels much better - Current Medication List Current Medications: Active Medications Acetaminophen (Tylenol -) 650 mg PO Q6H PRN PRN Reason: FEVER OR PAIN Last Admin: 07/23/16 21:13 Dose: 650 mg Amlodipine Besylate (Norvasc -) 10 mg PO DAILY [facility] Last Admin: 07/25/16 09:22 Dose: 10 mg Apixaban (Eliquis -) 2.5 mg PO BID [facility] Last Admin: 07/25/16 09:22 Dose: 2.5 mg Bacitracin (Bacitracin -) 1 applic TP DAILY [facility] Last Admin: 07/25/16 09:22 Dose: 1 applic Clindamycin HCl (Cleocin -) 300 mg PO Q6HPO [facility] Last Admin: 07/25/16 12:36 Dose: 300 mg Docusate Sodium (Colace -) 100 mg PO TID [facility] Last Admin: 07/25/16 06:14 Dose: 100 mg Ertapenem 1 gm/ Sodium (Chloride) 50 mls @ 50 mls/hr IVPB DAILY [facility] PRN Reason: Protocol Last Admin: 07/25/16 09:22 Dose: 50 mls/hr Insulin Aspart (Novolog Vial Sliding Scale -) 1 vial SQ ACHS [facility] PRN Reason: Protocol Last Admin: 07/25/16 12:25 Dose: Not Given Metoprolol Succinate (Toprol Xl -) 50 mg PO BID [facility] Last Admin: 07/25/16 09:22 Dose: 50 mg Nystatin (Nystop Powder -) 1 applic TP BID [facility] Last Admin: 07/25/16 09:24 Dose: 1 applic Ondansetron HCl (Zofran Injection) 4 mg IVPUSH Q6H PRN PRN Reason: NAUSEA AND/OR VOMITING Last Admin: 07/25/16 05:07 Dose: 4 mg Sitagliptin Phosphate (Januvia -) 25 mg PO DAILY@0700 [facility] Last Admin: 07/25/16 06:13 Dose: 25 mg - Objective Vital Signs: Vital Signs Temperature 98.0 F 07/25/16 10:00 Pulse Rate 83 07/25/16 10:00 Respiratory Rate 18 07/25/16 10:00 Blood Pressure 134/71 07/25/16 10:00 O2 Sat by Pulse Oximetry (%) 95 07/25/16 09:00 Constitutional: Yes: No Distress, Calm, Obese Cardiovascular: Yes: Regular Rate and Rhythm Respiratory: Yes: Regular, CTA Bilaterally, On Nasal O2 Gastrointestinal: Yes: Normal Bowel Sounds, Soft Musculoskeletal: Yes: Other Extremities: Yes: Erythema (resolving), Other Integumentary: Yes: Erythema Wound/Incision: Yes: Clean/Dry Neurological: Yes: Alert, Oriented Psychiatric: Yes: Alert, Oriented Labs: CBC, BMP 07/25/16 07:40 07/25/16 07:40 INR, PTT INR 1.40 (0.82-1.09) H 07/19/16 15:00 Assessment/Plan Assessment/Plan (1) Cellulitis of both feet Code(s): L03.115 - CELLULITIS OF RIGHT LOWER LIMB L03.116 - CELLULITIS OF LEFT LOWER LIMB (2) Diabetes Code(s): E11.9 - TYPE 2 DIABETES MELLITUS WITHOUT COMPLICATIONS (3) Renal insufficiency Code(s): N28.9 - DISORDER OF KIDNEY AND URETER, UNSPECIFIED (4) Hypertension Code(s): I10 - ESSENTIAL (PRIMARY) HYPERTENSION (5) Afib Code(s): I48.91 - UNSPECIFIED ATRIAL FIBRILLATION esbl uti plan continue ertapenam elevation of legs continue clinda
--- NOTE | 2016-07-25 14:20 | PN ---
Progress Note (short form) - Note Progress Note: Renal follow up for CKD Pt seen and examined at the bedside no acute complaints denies any sob or chest pain reports good urine output huang removed Vital Signs Temperature 98.0 F 07/25/16 10:00 Pulse Rate 83 07/25/16 10:00 Respiratory Rate 18 07/25/16 10:00 Blood Pressure 134/71 07/25/16 10:00 O2 Sat by Pulse Oximetry (%) 95 07/25/16 09:00 Intake & Output 07/22/16 07/23/16 07/24/16 07/25/16 23:59 23:59 23:59 23:59 Intake Total 1300 550 100 200 Output Total 1600 800 Balance -300 -250 100 200 Weight 299 lb 9.6 oz 294 lb 8 oz 292 lb 6 oz 305 lb 4.8 oz Gen: NAD, awake and alert CVS: Irregular, No M/R Abd: Soft NT/ND Ext: LE in dressing, no significant sacral edema CBC, BMP 07/25/16 07:40 07/25/16 07:40 Laboratory Tests 07/23/16 07/23/16 07/25/16 06:05 06:05 07:40 Calcium 8.4 L Iron 14 L TIBC 191 L Iron Saturation 7 L Ferritin 160.173 Albumin 2.4 L Current Medications Acetaminophen (Tylenol -) 650 mg PO Q6H PRN PRN Reason: FEVER OR PAIN Last Admin: 07/23/16 21:13 Dose: 650 mg Amlodipine Besylate (Norvasc -) 10 mg PO DAILY [facility] Last Admin: 07/25/16 09:22 Dose: 10 mg Apixaban (Eliquis -) 2.5 mg PO BID [facility] Last Admin: 07/25/16 09:22 Dose: 2.5 mg Bacitracin (Bacitracin -) 1 applic TP DAILY [facility] Last Admin: 07/25/16 09:22 Dose: 1 applic Clindamycin HCl (Cleocin -) 300 mg PO Q6HPO [facility] Last Admin: 07/25/16 12:36 Dose: 300 mg Docusate Sodium (Colace -) 100 mg PO TID [facility] Last Admin: 07/25/16 06:14 Dose: 100 mg Ertapenem 1 gm/ Sodium (Chloride) 50 mls @ 50 mls/hr IVPB DAILY [facility] PRN Reason: Protocol Last Admin: 07/25/16 09:22 Dose: 50 mls/hr Insulin Aspart (Novolog Vial Sliding Scale -) 1 vial SQ ACHS [facility] PRN Reason: Protocol Last Admin: 07/25/16 12:25 Dose: Not Given Metoprolol Succinate (Toprol Xl -) 50 mg PO BID [facility] Last Admin: 07/25/16 09:22 Dose: 50 mg Nystatin (Nystop Powder -) 1 applic TP BID [facility] Last Admin: 07/25/16 09:24 Dose: 1 applic Ondansetron HCl (Zofran Injection) 4 mg IVPUSH Q6H PRN PRN Reason: NAUSEA AND/OR VOMITING Last Admin: 07/25/16 05:07 Dose: 4 mg Sitagliptin Phosphate (Januvia -) 25 mg PO DAILY@0700 [facility] Last Admin: 07/25/16 06:13 Dose: 25 mg A/P 81 year old woman with PMhx of CKD stage 3 (Cr ~2 on most recent discharge). DM Type 2 + retinopathy, Hypertension, Peripheral Neuropathy who presented with tenderness, pain and difficulty ambulating and noted to have BUN/Cr of 59/1.9. #CKD Stage 3 with subnephrotic proteinuria Cr with mild improvement off Lasix would continue to monitor BUN/Cr no IVF indicated as pt tolerating oral intake no acidosis/Hyperkalemia/Volume overload Dose all meds for Cr Cl ~30 #LE wound/Cellulitis Continue Abx as per ID #Normocytic Anemia Hgb stable but low Iron studies show low iron saturation Will give IV Venofer 200mg IV today and tomorrow PO iron on discharge check stool for occult blood James Wright DO
[2016-07-25] MEDS ORDERED: IRON SUCROSE INJECTION 200 MG in SODIUM CHLORIDE 100 ML IVPB ONE (16:00)
[2016-07-26] MEDS: CLINDAMYCIN HCL 150 MG CAPSULE (FP) PO SCH ×3 (06:02→17:58)
[2016-07-26] MEDS: sitaGLIPtin PHOSPHATE 25 MG TABLET (FP) PO SCH (06:02)
[2016-07-26] MEDS: DOCUSATE SODIUM 100 MG CAPSULE (FP) PO SCH ×3 (06:02→23:04)
[2016-07-26] MEDS: INSULIN SLIDING SCALE (NOVOLOG) 1 VIAL SQ SCH ×4 (07:45→22:10)
[2016-07-26 08:13] LABS: BASOPHIL 0.6 % (0-2.0); EOSINOPHIL 3.2 % (0-4.5); MCH 26.9 pg (25.7-33.7); MCHC 31.9 g/dl (32.0-36.0); MEAN CELL VOLUME 84.4 fl (80-96); MEAN PLT VOLUME 8.1 fl (7.5-11.1); NEUTROPHILS 81.1 % (42.8-82.8); PLATELET COUNT 259 K/MM3 (134-434); RDW 14.9 % (11.6-15.6); WHITE BLOOD COUNT 10.9 K/mm3 (4.0-10.0)
[2016-07-26] MEDS ORDERED: PT OWN MED DRAWER 7, Y5N ONE ×3 (09:20→20:08)
[2016-07-26] MEDS: METOPROLOL SUCCINATE 50 MG TAB.SR.24H (FP) PO SCH ×2 (09:37→22:09)
[2016-07-26] MEDS: ACETAMINOPHEN 325 MG TABLET (FP) PO PRN (09:37)
[2016-07-26] MEDS: amLODIPine BESYLATE 10 MG TABLET (FP) PO SCH (09:37)
[2016-07-26] MEDS: ERTAPENEM SODIUM 1 GM in SODIUM CHLORIDE 50 ML IVPB SCH (09:37)
[2016-07-26] MEDS: APIXABAN 2.5 MG TABLET PO SCH ×2 (09:37→23:04)
[2016-07-26] MEDS: NYSTATIN POWDER 100,000 UNITS/GM - 15 GM TOPICAL POWDER TP SCH ×2 (09:49→22:10)
[2016-07-26] MEDS: BACITRACIN 30 GM TUBE TOPICAL OINTMENT TP SCH (09:49)
[2016-07-26 10:04] LABS: CALCIUM 8.7 mg/dL (8.5-10.1); CREATININE 1.9 mg/dL (0.55-1.02); MAGNESIUM 2.9 mg/dL (1.8-2.4); PHOSPHOROUS 5.5 mg/dL (2.5-4.9)
[2016-07-26] MEDS ORDERED: IRON SUCROSE INJECTION 200 MG in SODIUM CHLORIDE 240 ML IVPB ONE (10:28)
--- NOTE | 2016-07-26 10:52 | PN ---
Progress Note (short form) - Note Progress Note: Renal follow up for CKD Pt seen and examined at the bedside has tenderness in left arm has mild dyspnea, no cough no chest pain or abd pain no pain in foot Vital Signs Temperature 98.8 F 07/26/16 06:00 Pulse Rate 76 07/26/16 10:10 Respiratory Rate 16 07/26/16 06:00 Blood Pressure 140/65 07/26/16 06:00 O2 Sat by Pulse Oximetry (%) 94 L 07/26/16 10:10 Intake & Output 07/23/16 07/24/16 07/25/16 07/26/16 23:59 23:59 23:59 23:59 Intake Total 550 100 800 Output Total 800 Balance -250 100 800 Weight 294 lb 8 oz 292 lb 6 oz 305 lb 4.8 oz Gen: NAD, awake and alert CVS: Irregular, No M/R Abd: Soft NT/ND Ext: LE in dressing, no significant sacral edema CBC, BMP 07/26/16 06:55 07/26/16 06:55 Laboratory Tests 07/26/16 07/26/16 06:55 06:55 MCV 84.4 Calcium 8.7 Phosphorus 5.5 H D Magnesium 2.9 H Current Medications Acetaminophen (Tylenol -) 650 mg PO Q6H PRN PRN Reason: FEVER OR PAIN Last Admin: 07/26/16 09:37 Dose: 650 mg Amlodipine Besylate (Norvasc -) 10 mg PO DAILY [facility] Last Admin: 07/26/16 09:37 Dose: 10 mg Apixaban (Eliquis -) 2.5 mg PO BID [facility] Last Admin: 07/26/16 09:37 Dose: 2.5 mg Bacitracin (Bacitracin -) 1 applic TP DAILY [facility] Last Admin: 07/26/16 09:49 Dose: 1 applic Clindamycin HCl (Cleocin -) 300 mg PO Q6HPO [facility] Last Admin: 07/26/16 06:02 Dose: 300 mg Docusate Sodium (Colace -) 100 mg PO TID [facility] Last Admin: 07/26/16 06:02 Dose: 100 mg Ertapenem 1 gm/ Sodium (Chloride) 50 mls @ 50 mls/hr IVPB DAILY [facility]S [facility] PRN Reason: Protocol Last Admin: 07/26/16 09:37 Dose: 50 mls/hr Iron Sucrose 200 mg/ Sodium (Chloride) 250 mls @ 250 mls/hr IVPB ONCE ONE Stop: 07/26/16 11:27 Insulin Aspart (Novolog Vial Sliding Scale -) 1 vial SQ ACHS [facility] PRN Reason: Protocol Last Admin: 07/26/16 07:45 Dose: Not Given Metoprolol Succinate (Toprol Xl -) 50 mg PO BID [facility] Last Admin: 07/26/16 09:37 Dose: 50 mg Nystatin (Nystop Powder -) 1 applic TP BID [facility] Last Admin: 07/26/16 09:49 Dose: 1 applic Ondansetron HCl (Zofran Injection) 4 mg IVPUSH Q6H PRN PRN Reason: NAUSEA AND/OR VOMITING Last Admin: 07/25/16 22:47 Dose: 4 mg Sitagliptin Phosphate (Januvia -) 25 mg PO DAILY@0700 [facility] Last Admin: 07/26/16 06:02 Dose: 25 mg A/P 81 year old woman with PMhx of CKD stage 3 (Cr ~2 on most recent discharge). DM Type 2 + retinopathy, Hypertension, Peripheral Neuropathy who presented with tenderness, pain and difficulty ambulating and noted to have BUN/Cr of 59/1.9. #CKD Stage 3 with subnephrotic proteinuria Cr now improved to near baseline pt however has some dyspnea and will require chronic diuretics restart Lasix 40mg PO daily (home dose), trend renal function no indication for [employer] Trend renal function and electrolytes #LE wound/Cellulitis Continue Abx as per ID #Normocytic Anemia [place] for Venofer 200mg IV again today Trend CBC Goal iron saturation ~30% #Hyperphosphatemia Low phos diet Trend Phos James Wright DO
[2016-07-26] MEDS: FUROSEMIDE 40 MG TABLET (FP) PO SCH (11:49)
--- NOTE | 2016-07-26 14:04 | PN ---
Progress Note, Physician Chief Complaint: Ms Polo is without complaint. Says her legs are no longer hurting. Denies cp, sob, n/v. - Current Medication List Current Medications: Active Medications Acetaminophen (Tylenol -) 650 mg PO Q6H PRN PRN Reason: FEVER OR PAIN Last Admin: 07/26/16 09:37 Dose: 650 mg Amlodipine Besylate (Norvasc -) 10 mg PO DAILY [facility] Last Admin: 07/26/16 09:37 Dose: 10 mg Apixaban (Eliquis -) 2.5 mg PO BID [facility] Last Admin: 07/26/16 09:37 Dose: 2.5 mg Bacitracin (Bacitracin -) 1 applic TP DAILY [facility] Last Admin: 07/26/16 09:49 Dose: 1 applic Clindamycin HCl (Cleocin -) 300 mg PO Q6HPO [facility] Last Admin: 07/26/16 11:49 Dose: 300 mg Docusate Sodium (Colace -) 100 mg PO TID [facility] Last Admin: 07/26/16 13:20 Dose: Not Given Furosemide (Lasix -) 40 mg PO DAILY [facility] Last Admin: 07/26/16 11:49 Dose: 40 mg Ertapenem 1 gm/ Sodium (Chloride) 50 mls @ 50 mls/hr IVPB DAILY [facility] PRN Reason: Protocol Last Admin: 07/26/16 09:37 Dose: 50 mls/hr Insulin Aspart (Novolog Vial Sliding Scale -) 1 vial SQ ACHS [facility] PRN Reason: Protocol Last Admin: 07/26/16 12:36 Dose: Not Given Metoprolol Succinate (Toprol Xl -) 50 mg PO BID [facility] Last Admin: 07/26/16 09:37 Dose: 50 mg Nystatin (Nystop Powder -) 1 applic TP BID [facility] Last Admin: 07/26/16 09:49 Dose: 1 applic Ondansetron HCl (Zofran Injection) 4 mg IVPUSH Q6H PRN PRN Reason: NAUSEA AND/OR VOMITING Last Admin: 07/25/16 22:47 Dose: 4 mg Sitagliptin Phosphate (Januvia -) 25 mg PO DAILY@0700 [facility] Last Admin: 07/26/16 06:02 Dose: 25 mg - Objective Vital Signs: Vital Signs Temperature 98.4 F 07/26/16 10:00 Pulse Rate 76 07/26/16 10:10 Respiratory Rate 18 07/26/16 10:00 Blood Pressure 133/68 07/26/16 10:00 O2 Sat by Pulse Oximetry (%) 94 L 07/26/16 10:10 Constitutional: Yes: No Distress, Calm, Obese Cardiovascular: Yes: Pulse Irregular. No: Tachycardia, Gallop, Murmur, Rub Respiratory: Yes: Regular, CTA Bilaterally. No: Rales, Rhonchi, Wheezes Gastrointestinal: Yes: Normal Bowel Sounds, Soft. No: Distention, Tenderness Extremities: Yes: WNL Edema: Yes Edema: RUE: Trace (hand), LLE: 1+, RLE: 1+ Labs: CBC, BMP 07/26/16 06:55 07/26/16 06:55 INR, PTT INR 1.40 (0.82-1.09) H 07/19/16 15:00 Assessment/Plan (1) Cellulitis of both feet Assessment/Plan: -improved -continue ertapenem and clindamycin -Dr Kruse following and to determine duration of antibiotics Code(s): L03.115 - CELLULITIS OF RIGHT LOWER LIMB L03.116 - CELLULITIS OF LEFT LOWER LIMB (2) Diabetes Assessment/Plan: -continue januvia -diabetic diet and SSI Code(s): E11.9 - TYPE 2 DIABETES MELLITUS WITHOUT COMPLICATIONS (3) Renal insufficiency Assessment/Plan: -nephrology following and note reviewed -renal function almost at baseline -lasix restarted Code(s): N28.9 - DISORDER OF KIDNEY AND URETER, UNSPECIFIED (4) Hypertension Assessment/Plan: -cont amlodipine, metoprolol Code(s): I10 - ESSENTIAL (PRIMARY) HYPERTENSION (5) Afib Assessment/Plan: -cont Eliquis and metoprolol Code(s): I48.91 - UNSPECIFIED ATRIAL FIBRILLATION (6) RUE edema -duplex doppler performed, awaiting read -anticoagulated for atrial fibrillation -if negative, secondary to infiltrated line -edema improved today
--- NOTE | 2016-07-26 15:35 | PN ---
Progress Note, Physician History of Present Illness: patient improving leg feeling better - Current Medication List Current Medications: Active Medications Acetaminophen (Tylenol -) 650 mg PO Q6H PRN PRN Reason: FEVER OR PAIN Last Admin: 07/26/16 09:37 Dose: 650 mg Amlodipine Besylate (Norvasc -) 10 mg PO DAILY [facility] Last Admin: 07/26/16 09:37 Dose: 10 mg Apixaban (Eliquis -) 2.5 mg PO BID [facility] Last Admin: 07/26/16 09:37 Dose: 2.5 mg Bacitracin (Bacitracin -) 1 applic TP DAILY [facility] Last Admin: 07/26/16 09:49 Dose: 1 applic Clindamycin HCl (Cleocin -) 300 mg PO Q6HPO [facility] Last Admin: 07/26/16 11:49 Dose: 300 mg Docusate Sodium (Colace -) 100 mg PO TID [facility] Last Admin: 07/26/16 13:20 Dose: Not Given Furosemide (Lasix -) 40 mg PO DAILY [facility] Last Admin: 07/26/16 11:49 Dose: 40 mg Ertapenem 1 gm/ Sodium (Chloride) 50 mls @ 50 mls/hr IVPB DAILY [facility] PRN Reason: Protocol Last Admin: 07/26/16 09:37 Dose: 50 mls/hr Insulin Aspart (Novolog Vial Sliding Scale -) 1 vial SQ ACHS [facility] PRN Reason: Protocol Last Admin: 07/26/16 12:36 Dose: Not Given Metoprolol Succinate (Toprol Xl -) 50 mg PO BID [facility] Last Admin: 07/26/16 09:37 Dose: 50 mg Nystatin (Nystop Powder -) 1 applic TP BID [facility] Last Admin: 07/26/16 09:49 Dose: 1 applic Ondansetron HCl (Zofran Injection) 4 mg IVPUSH Q6H PRN PRN Reason: NAUSEA AND/OR VOMITING Last Admin: 07/25/16 22:47 Dose: 4 mg Sitagliptin Phosphate (Januvia -) 25 mg PO DAILY@0700 [facility] Last Admin: 07/26/16 06:02 Dose: 25 mg - Objective Vital Signs: Vital Signs Temperature 98.2 F 07/26/16 14:00 Pulse Rate 74 07/26/16 14:00 Respiratory Rate 18 07/26/16 14:00 Blood Pressure 150/72 07/26/16 14:00 O2 Sat by Pulse Oximetry (%) 94 L 07/26/16 10:10 Constitutional: Yes: No Distress, Calm, Obese Cardiovascular: Yes: Regular Rate and Rhythm Respiratory: Yes: Regular, CTA Bilaterally Gastrointestinal: Yes: Normal Bowel Sounds, Soft Extremities: Yes: Erythema (minimal), Other Integumentary: Yes: Other Wound/Incision: Yes: Dressing Dry and Intact Neurological: Yes: Alert, Oriented Psychiatric: Yes: Alert, Oriented Labs: CBC, BMP 07/26/16 06:55 07/26/16 06:55 INR, PTT INR 1.40 (0.82-1.09) H 07/19/16 15:00 Assessment/Plan Assessment/Plan (1) Cellulitis of both feet Code(s): L03.115 - CELLULITIS OF RIGHT LOWER LIMB L03.116 - CELLULITIS OF LEFT LOWER LIMB (2) Diabetes Code(s): E11.9 - TYPE 2 DIABETES MELLITUS WITHOUT COMPLICATIONS (3) Renal insufficiency Code(s): N28.9 - DISORDER OF KIDNEY AND URETER, UNSPECIFIED (4) Hypertension Code(s): I10 - ESSENTIAL (PRIMARY) HYPERTENSION (5) Afib Code(s): I48.91 - UNSPECIFIED ATRIAL FIBRILLATION esbl uti plan continue ertapenam elevation of legs continue clinda will deescalate clinda tomorrow
[2016-07-27] MEDS: CLINDAMYCIN HCL 150 MG CAPSULE (FP) PO SCH ×3 (00:30→12:25)
[2016-07-27] MEDS: DOCUSATE SODIUM 100 MG CAPSULE (FP) PO SCH ×3 (05:59→21:48)
[2016-07-27] MEDS: sitaGLIPtin PHOSPHATE 25 MG TABLET (FP) PO SCH (06:00)
[2016-07-27] MEDS: INSULIN SLIDING SCALE (NOVOLOG) 1 VIAL SQ SCH ×4 (06:00→21:29)
[2016-07-27] MEDS ORDERED: PT OWN MED DRAWER 7, Y5N ONE ×2 (06:36→09:43)
[2016-07-27 08:30] LABS: CALCIUM 8.6 mg/dL (8.5-10.1); CREATININE 1.9 mg/dL (0.55-1.02); MAGNESIUM 2.8 mg/dL (1.8-2.4)
[2016-07-27 08:31] LABS: PHOSPHOROUS 3.2 mg/dL (2.5-4.9)
[2016-07-27] MEDS: APIXABAN 2.5 MG TABLET PO SCH ×2 (09:51→21:48)
[2016-07-27] MEDS: NYSTATIN POWDER 100,000 UNITS/GM - 15 GM TOPICAL POWDER TP SCH ×2 (09:51→21:49)
[2016-07-27] MEDS: amLODIPine BESYLATE 10 MG TABLET (FP) PO SCH (09:51)
[2016-07-27] MEDS: ERTAPENEM SODIUM 1 GM in SODIUM CHLORIDE 50 ML IVPB SCH (09:51)
[2016-07-27] MEDS: FUROSEMIDE 40 MG TABLET (FP) PO SCH (09:51)
[2016-07-27] MEDS: BACITRACIN 30 GM TUBE TOPICAL OINTMENT TP SCH (09:51)
[2016-07-27] MEDS: METOPROLOL SUCCINATE 50 MG TAB.SR.24H (FP) PO SCH ×2 (09:51→21:48)
[2016-07-27] MEDS: ACETAMINOPHEN 325 MG TABLET (FP) PO PRN (12:59)
[2016-07-27] MEDS ORDERED: ALPRAZolam 2 MG TABLET PO PRN (13:03)
--- NOTE | 2016-07-27 15:11 | PN ---
Physical Exam: SUBJECTIVE: Patient seen and examined. She is wondering when her infection will go away. She is feeling a bit anxious. Will resume home prn xanax OBJECTIVE: Vital Signs Period Temp Pulse Resp BP Sys/Dieog Pulse Ox Last 24 Hr 98.8 F-99 F 71-93 18-20 139-179/77-89 95 PE Neuro: alert, awake, cn 2-12intact Pulm: CTAB CV: s1s2 irregular rhythm Abd: obese, s nt nd +bs Ext: L 1st and 2nd toe with erythema, open wound, 3/4 toes amputation, RUE +1 edema Laboratory Results - last 24 hr 07/27/16 07/27/16 06:00 11:27 Sodium 145 Potassium 4.7 Chloride 107 Carbon Dioxide 30 Anion Gap 8 BUN 71 H Creatinine 1.9 H POC Glucometer 129 Random Glucose 106 Calcium 8.6 Phosphorus 3.2 D Magnesium 2.8 H Active Medications Generic Name Dose Route Start Last Admin Trade Name Freq PRN Reason Stop Dose Admin Acetaminophen 650 mg 07/19/16 20:23 07/27/16 12:59 Tylenol - PO 650 mg Q6H PRN Administration FEVER OR PAIN Alprazolam 1 mg 07/27/16 13:03 07/27/16 14:01 Xanax - PO 07/28/16 13:02 1 mg Q12H PRN Administration ANXIETY Amlodipine Besylate 10 mg 07/21/16 17:41 07/27/16 09:51 Norvasc - PO 10 mg DAILY [facility] Administration Apixaban 2.5 mg 07/19/16 22:00 07/27/16 09:51 Eliquis - PO 2.5 mg BID [facility] Administration Bacitracin 1 applic 07/21/16 10:00 07/27/16 09:51 Bacitracin - TP 1 applic DAILY [facility] Administration Clindamycin HCl 300 mg 07/22/16 18:00 07/27/16 12:25 Cleocin - PO 300 mg Q6HPO [facility] Administration Docusate Sodium 100 mg 07/21/16 14:00 07/27/16 05:59 Colace - PO Not Given TID [facility] Furosemide 40 mg 07/26/16 11:00 07/27/16 09:51 Lasix - PO 40 mg DAILY [facility] Administration Ertapenem 1 gm/ Sodium 50 mls @ 50 mls/hr 07/22/16 17:00 07/27/16 09:51 Chloride IVPB 50 mls/hr DAILY [facility] Administration Protocol Insulin Aspart 1 vial 07/19/16 22:00 07/27/16 12:09 Novolog Vial Sliding Scale - SQ Not Given ACHS [facility] Protocol Metoprolol Succinate 50 mg 07/19/16 22:00 07/27/16 09:51 Toprol Xl - PO 50 mg BID [facility] Administration Nystatin 1 applic 07/20/16 10:00 07/27/16 09:51 Nystop Powder - TP 1 applic BID [facility] Administration Ondansetron HCl 4 mg 07/21/16 15:16 07/25/16 22:47 Zofran Injection IVPUSH 4 mg Q6H PRN Administration NAUSEA AND/OR VOMITING Sitagliptin Phosphate 25 mg 07/20/16 07:00 07/27/16 06:00 Januvia - PO 25 mg DAILY@0700 [facility] Administration Assessment: 81 year old female with CKD stage 3, DM Type 2 + retinopathy, Hypertension, Peripheral Neuropathy admitted with bilateral LE tenderness, pain and difficulty ambulating. Plan: 1. Cellulitis of both feet/ LLE - Continue ertapenem and clindamycin - ID following, directing duration of abx 2. DM II - AM sugars controlled - ISS, BGM ACHS - Continue januvia 3. CKD stage 3 - Cr at baseline - With +1 proteinuria - Continue lasix 40mg daily - Renal consult appreciated 4. Normocytic anemia - s/p Venofer infusion yesterday - Hgb improved - Goal iron sat 30% with PO iron on DC 5. Hypertension - Cont amlodipine, metoprolol 6. Afib - Cont Eliquis and metoprolol 7. RUE edema - Secondary to infiltrated line - Duplex doppler negative for DVT - On AC for atrial fibrillation 8. Hyperphosphatemia - Monitor phos levels Visit type - Emergency Visit Emergency Visit: Yes ED Registration Date: 07/19/16 Care time: The patient presented to the Emergency Department on the above date and was hospitalized for further evaluation of their emergent condition. - New Patient This patient is new to me today: Yes Date on this admission: 07/27/16 - Critical Care Critical Care patient: No
--- NOTE | 2016-07-27 15:28 | PN ---
Progress Note, Physician History of Present Illness: patient stable no new issues says she is doing well legs feeling better - Current Medication List Current Medications: Active Medications Acetaminophen (Tylenol -) 650 mg PO Q6H PRN PRN Reason: FEVER OR PAIN Last Admin: 07/27/16 12:59 Dose: 650 mg Alprazolam (Xanax -) 1 mg PO Q12H PRN PRN Reason: ANXIETY Stop: 07/28/16 13:02 Last Admin: 07/27/16 14:01 Dose: 1 mg Amlodipine Besylate (Norvasc -) 10 mg PO DAILY [facility] Last Admin: 07/27/16 09:51 Dose: 10 mg Apixaban (Eliquis -) 2.5 mg PO BID [facility] Last Admin: 07/27/16 09:51 Dose: 2.5 mg Bacitracin (Bacitracin -) 1 applic TP DAILY [facility] Last Admin: 07/27/16 09:51 Dose: 1 applic Clindamycin HCl (Cleocin -) 300 mg PO Q6HPO [facility] Last Admin: 07/27/16 12:25 Dose: 300 mg Docusate Sodium (Colace -) 100 mg PO TID [facility] Last Admin: 07/27/16 05:59 Dose: Not Given Furosemide (Lasix -) 40 mg PO DAILY [facility] Last Admin: 07/27/16 09:51 Dose: 40 mg Ertapenem 1 gm/ Sodium (Chloride) 50 mls @ 50 mls/hr IVPB DAILY [facility] PRN Reason: Protocol Last Admin: 07/27/16 09:51 Dose: 50 mls/hr Insulin Aspart (Novolog Vial Sliding Scale -) 1 vial SQ ACHS [facility] PRN Reason: Protocol Last Admin: 07/27/16 12:09 Dose: Not Given Metoprolol Succinate (Toprol Xl -) 50 mg PO BID [facility] Last Admin: 07/27/16 09:51 Dose: 50 mg Nystatin (Nystop Powder -) 1 applic TP BID [facility] Last Admin: 07/27/16 09:51 Dose: 1 applic Ondansetron HCl (Zofran Injection) 4 mg IVPUSH Q6H PRN PRN Reason: NAUSEA AND/OR VOMITING Last Admin: 07/25/16 22:47 Dose: 4 mg Sitagliptin Phosphate (Januvia -) 25 mg PO DAILY@0700 [facility] Last Admin: 07/27/16 06:00 Dose: 25 mg - Objective Vital Signs: Vital Signs Temperature 98.9 F 07/27/16 10:00 Pulse Rate 80 07/27/16 10:00 Respiratory Rate 18 07/27/16 10:00 Blood Pressure 157/77 07/27/16 10:00 O2 Sat by Pulse Oximetry (%) 95 07/26/16 21:00 Constitutional: Yes: No Distress, Calm Cardiovascular: Yes: Regular Rate and Rhythm Respiratory: Yes: Regular, On Nasal O2, Poor Air Entry Gastrointestinal: Yes: Normal Bowel Sounds, Soft Musculoskeletal: Yes: Other Extremities: Yes: Other (improved) Neurological: Yes: Alert Psychiatric: Yes: Alert Labs: CBC, BMP 07/26/16 06:55 07/27/16 06:00 INR, PTT INR 1.40 (0.82-1.09) H 07/19/16 15:00 Assessment/Plan Assessment/Plan (1) Cellulitis of both feet Code(s): L03.115 - CELLULITIS OF RIGHT LOWER LIMB L03.116 - CELLULITIS OF LEFT LOWER LIMB (2) Diabetes Code(s): E11.9 - TYPE 2 DIABETES MELLITUS WITHOUT COMPLICATIONS (3) Renal insufficiency Code(s): N28.9 - DISORDER OF KIDNEY AND URETER, UNSPECIFIED (4) Hypertension Code(s): I10 - ESSENTIAL (PRIMARY) HYPERTENSION (5) Afib Code(s): I48.91 - UNSPECIFIED ATRIAL FIBRILLATION esbl uti plan continue ertapenam elevation of legs stopped clinda will also deescalate erta probably by tomorrow
--- NOTE | 2016-07-27 16:44 | PN ---
Progress Note (short form) - Note Progress Note: Renal follow up for CKD Pt seen and examined at the bedside feels fatigued has mild sob no cough no chest pain no N/V/D Vital Signs Temperature 98.6 F 07/27/16 15:33 Pulse Rate 82 07/27/16 15:33 Respiratory Rate 20 07/27/16 15:33 Blood Pressure 157/77 07/27/16 10:00 O2 Sat by Pulse Oximetry (%) 95 07/26/16 21:00 Gen: NAD, awake and alert CVS: Irregular, No M/R Abd: Soft NT/ND Ext: trace edema in LE CBC, BMP 07/26/16 06:55 07/27/16 06:00 Current Medications Acetaminophen (Tylenol -) 650 mg PO Q6H PRN PRN Reason: FEVER OR PAIN Last Admin: 07/27/16 12:59 Dose: 650 mg Alprazolam (Xanax -) 1 mg PO Q12H PRN PRN Reason: ANXIETY Stop: 07/28/16 13:02 Last Admin: 07/27/16 14:01 Dose: 1 mg Amlodipine Besylate (Norvasc -) 10 mg PO DAILY [facility] Last Admin: 07/27/16 09:51 Dose: 10 mg Apixaban (Eliquis -) 2.5 mg PO BID [facility] Last Admin: 07/27/16 09:51 Dose: 2.5 mg Bacitracin (Bacitracin -) 1 applic TP DAILY [facility] Last Admin: 07/27/16 09:51 Dose: 1 applic Docusate Sodium (Colace -) 100 mg PO TID [facility] Last Admin: 07/27/16 15:29 Dose: Not Given Furosemide (Lasix -) 40 mg PO DAILY [facility] Last Admin: 07/27/16 09:51 Dose: 40 mg Ertapenem 1 gm/ Sodium (Chloride) 50 mls @ 50 mls/hr IVPB DAILY [facility] PRN Reason: Protocol Last Admin: 07/27/16 09:51 Dose: 50 mls/hr Insulin Aspart (Novolog Vial Sliding Scale -) 1 vial SQ ACHS [facility] PRN Reason: Protocol Last Admin: 07/27/16 12:09 Dose: Not Given Metoprolol Succinate (Toprol Xl -) 50 mg PO BID [facility] Last Admin: 07/27/16 09:51 Dose: 50 mg Nystatin (Nystop Powder -) 1 applic TP BID [facility] Last Admin: 07/27/16 09:51 Dose: 1 applic Ondansetron HCl (Zofran Injection) 4 mg IVPUSH Q6H PRN PRN Reason: NAUSEA AND/OR VOMITING Last Admin: 07/25/16 22:47 Dose: 4 mg Sitagliptin Phosphate (Januvia -) 25 mg PO DAILY@0700 [facility] Last Admin: 07/27/16 06:00 Dose: 25 mg A/P 81 year old woman with PMhx of CKD stage 3 (Cr ~2 on most recent discharge). DM Type 2 + retinopathy, Hypertension, Peripheral Neuropathy who presented with tenderness, pain and difficulty ambulating and noted to have BUN/Cr of 59/1.9. #CKD Stage 3 with subnephrotic proteinuria Renal function now improved and stable continue Lasix 40mg Daily Trend BUN/cr #LE wound/Cellulitis Continue Abx as per ID #Normocytic Anemia s/p Venofer x 2 Trend CBC #Hyperphosphatemia Low phos diet Trend Phos James Wright DO
[2016-07-28] MEDS: INSULIN SLIDING SCALE (NOVOLOG) 1 VIAL SQ SCH ×4 (06:43→21:52)
[2016-07-28] MEDS: sitaGLIPtin PHOSPHATE 25 MG TABLET (FP) PO SCH (06:44)
[2016-07-28] MEDS: DOCUSATE SODIUM 100 MG CAPSULE (FP) PO SCH ×3 (06:44→21:52)
[2016-07-28 08:10] LABS: BASOPHIL 0.9 % (0-2.0); EOSINOPHIL 5.3 % (0-4.5); MCHC 32.6 g/dl (32.0-36.0); MEAN CELL VOLUME 83.1 fl (80-96); MEAN PLT VOLUME 7.9 fl (7.5-11.1); NEUTROPHILS 77.9 % (42.8-82.8); PLATELET COUNT 293 K/MM3 (134-434); RDW 14.7 % (11.6-15.6); WHITE BLOOD COUNT 10.3 K/mm3 (4.0-10.0)
[2016-07-28 08:54] LABS: ALBUMIN 2.5 g/dl (3.4-5.0); BILIRUBIN,TOTAL 0.3 mg/dL (0.2-1.0); CALCIUM 8.8 mg/dL (8.5-10.1); CREATININE 1.8 mg/dL (0.55-1.02); PHOSPHOROUS 3.2 mg/dL (2.5-4.9); TOT PROT 6.7 g/dl (6.4-8.2)
[2016-07-28] MEDS ORDERED: PT OWN MED DRAWER 7, Y5N ONE ×2 (09:14→10:11)
[2016-07-28] MEDS: ERTAPENEM SODIUM 1 GM in SODIUM CHLORIDE 50 ML IVPB SCH (09:37)
[2016-07-28] MEDS: FUROSEMIDE 40 MG TABLET (FP) PO SCH (09:38)
[2016-07-28] MEDS: amLODIPine BESYLATE 10 MG TABLET (FP) PO SCH (09:38)
[2016-07-28] MEDS: BACITRACIN 30 GM TUBE TOPICAL OINTMENT TP SCH (09:38)
[2016-07-28] MEDS: METOPROLOL SUCCINATE 50 MG TAB.SR.24H (FP) PO SCH ×2 (09:38→21:52)
[2016-07-28] MEDS: NYSTATIN POWDER 100,000 UNITS/GM - 15 GM TOPICAL POWDER TP SCH ×2 (09:38→21:53)
[2016-07-28] MEDS: APIXABAN 2.5 MG TABLET PO SCH ×2 (09:38→21:52)
--- NOTE | 2016-07-28 11:52 | PN ---
Progress Note (short form) - Note Progress Note: Renal follow up for CKD Pt seen and examined at the bedside continue to have mild sob and cough Vital Signs Temperature 98.1 F 07/28/16 08:54 Pulse Rate 79 07/28/16 08:54 Respiratory Rate 20 07/28/16 08:54 Blood Pressure 139/75 07/28/16 08:54 O2 Sat by Pulse Oximetry (%) 99 07/27/16 21:00 Intake & Output 07/25/16 07/26/16 07/27/16 07/28/16 23:59 23:59 23:59 23:59 Intake Total 800 300 600 Balance 800 300 600 Weight 305 lb 4.8 oz 300 lb 295 lb 11.2 oz Gen: NAD, awake and alert CVS: Irregular, No M/R Lungs: + rales at lung bases Abd: Soft NT/ND Ext: trace edema in LE CBC, BMP 07/28/16 06:30 07/28/16 06:30 Laboratory Tests 07/28/16 06:30 Calcium 8.8 Phosphorus 3.2 Current Medications Acetaminophen (Tylenol -) 650 mg PO Q6H PRN PRN Reason: FEVER OR PAIN Last Admin: 07/27/16 12:59 Dose: 650 mg Alprazolam (Xanax -) 1 mg PO Q12H PRN PRN Reason: ANXIETY Stop: 07/28/16 13:02 Last Admin: 07/27/16 14:01 Dose: 1 mg Amlodipine Besylate (Norvasc -) 10 mg PO DAILY [facility] Last Admin: 07/28/16 09:38 Dose: 10 mg Apixaban (Eliquis -) 2.5 mg PO BID [facility] Last Admin: 07/28/16 09:38 Dose: 2.5 mg Bacitracin (Bacitracin -) 1 applic TP DAILY [facility] Last Admin: 07/28/16 09:38 Dose: 1 applic Docusate Sodium (Colace -) 100 mg PO TID [facility] Last Admin: 07/28/16 06:44 Dose: 100 mg Furosemide (Lasix -) 40 mg PO DAILY [facility] Last Admin: 07/28/16 09:38 Dose: 40 mg Furosemide (Lasix Injection -) 40 mg IVPUSH ONCE ONE Stop: 07/28/16 14:01 Ertapenem 1 gm/ Sodium (Chloride) 50 mls @ 50 mls/hr IVPB DAILY [facility] PRN Reason: Protocol Last Admin: 07/28/16 09:37 Dose: 50 mls/hr Insulin Aspart (Novolog Vial Sliding Scale -) 1 vial SQ ACHS [facility] PRN Reason: Protocol Last Admin: 07/28/16 06:43 Dose: Not Given Metoprolol Succinate (Toprol Xl -) 50 mg PO BID [facility] Last Admin: 07/28/16 09:38 Dose: 50 mg Nystatin (Nystop Powder -) 1 applic TP BID [facility] Last Admin: 07/28/16 09:38 Dose: 1 applic Ondansetron HCl (Zofran Injection) 4 mg IVPUSH Q6H PRN PRN Reason: NAUSEA AND/OR VOMITING Last Admin: 07/25/16 22:47 Dose: 4 mg Sitagliptin Phosphate (Januvia -) 25 mg PO DAILY@0700 [facility] Last Admin: 07/28/16 06:44 Dose: 25 mg A/P 81 year old woman with PMhx of CKD stage 3 (Cr ~2 on most recent discharge). DM Type 2 + retinopathy, Hypertension, Peripheral Neuropathy who presented with tenderness, pain and difficulty ambulating and noted to have BUN/Cr of 59/1.9. #CKD Stage 3 with subnephrotic proteinuria Renal function now improved and stable #SOB with signs of volume expansion on exam on Lasix PO once daily w/o improvement Check CXR additional IV lasix this afternoon #LE wound/Cellulitis Continue Abx as per ID #Normocytic Anemia s/p Venofer x 2 Trend CBC #Hyperphosphatemia Low phos diet Trend [facility] James Wright DO
--- NOTE | 2016-07-28 11:55 | PN ---
Physical Exam: SUBJECTIVE: Patient seen and examined. States she feels weak. Denies chest pain or shortness of breath. OBJECTIVE: patient states she feels weak right arm edema (-) for dvt Asking about discharge options: rehab? To get additional dose of Lasix today as per renal Discharge Planning Vital Signs Period Temp Pulse Resp BP Sys/Diego Pulse Ox Last 24 Hr 98.1 F-98.6 F 79-95 18-20 139-165/75-82 99 GENERAL: The patient is awake, alert, and fully oriented, in no acute distress. HEAD: Normal with no signs of trauma. EYES: PERRL, extraocular movements intact, sclera anicteric, conjunctiva clear. No ptosis. ENT: Ears normal, nares patent, oropharynx clear without exudates, moist mucous membranes. NECK: Trachea midline, full range of motion, supple. LUNGS: left lung diminished, right lung clear - encouraged to use incentive spirometer HEART: Regular rate and rhythm ABDOMEN: Soft, nontender, nondistended, +bowel sounds, no guarding, no rebound, no hepatosplenomegaly, no masses. EXTREMITIES: 2+ pulses, warm, well-perfused, no edema. NEUROLOGICAL: Normal speech, gait not observed. PSYCH: Normal mood, normal affect. SKIN: bilateral lower ext. cellulitis, left great toe wound Laboratory Results - last 24 hr 07/27/16 07/28/16 07/28/16 21:28 06:30 06:30 WBC 10.3 H RBC 3.66 Hgb 9.9 L Hct 30.4 L MCV 83.1 MCHC 32.6 RDW 14.7 Plt Count 293 MPV 7.9 Neutrophils % 77.9 Lymphocytes % 9.2 D Monocytes % 6.7 Eosinophils % 5.3 H Basophils % 0.9 Sodium 147 H Potassium 4.6 Chloride 108 H Carbon Dioxide 30 Anion Gap 9 BUN 62 H Creatinine 1.8 H Creat Clearance w eGFR 27.07 POC Glucometer 104 Random Glucose 92 Calcium 8.8 Phosphorus 3.2 Total Bilirubin 0.3 D AST 10 L D ALT 12 Alkaline Phosphatase 79 Total Protein 6.7 Albumin 2.5 L 07/28/16 06:43 WBC RBC Hgb Hct MCV MCHC RDW Plt Count MPV Neutrophils % Lymphocytes % Monocytes % Eosinophils % Basophils % Sodium Potassium Chloride Carbon Dioxide Anion Gap BUN Creatinine Creat Clearance w eGFR POC Glucometer 98 Random Glucose Calcium Phosphorus Total Bilirubin AST ALT Alkaline Phosphatase Total Protein Albumin Active Medications Generic Name Dose Route Start Last Admin Trade Name Freq PRN Reason Stop Dose Admin Acetaminophen 650 mg 07/19/16 20:23 07/27/16 12:59 Tylenol - PO 650 mg Q6H PRN Administration FEVER OR PAIN Alprazolam 1 mg 07/27/16 13:03 07/27/16 14:01 Xanax - PO 07/28/16 13:02 1 mg Q12H PRN Administration ANXIETY Amlodipine Besylate 10 mg 07/21/16 17:41 07/28/16 09:38 Norvasc - PO 10 mg DAILY [facility] Administration Apixaban 2.5 mg 07/19/16 22:00 07/28/16 09:38 Eliquis - PO 2.5 mg BID [facility] Administration Bacitracin 1 applic 07/21/16 10:00 07/28/16 09:38 Bacitracin - TP 1 applic DAILY [facility] Administration Docusate Sodium 100 mg 07/21/16 14:00 07/28/16 06:44 Colace - PO 100 mg TID [facility] Administration Furosemide 40 mg 07/26/16 11:00 07/28/16 09:38 Lasix - PO 40 mg DAILY [facility] Administration Furosemide 40 mg 07/28/16 14:00 Lasix Injection - IVPUSH 07/28/16 14:01 ONCE ONE Ertapenem 1 gm/ Sodium 50 mls @ 50 mls/hr 07/22/16 17:00 07/28/16 09:37 Chloride IVPB 50 mls/hr DAILY [facility] Administration Protocol Insulin Aspart 1 vial 07/19/16 22:00 07/28/16 06:43 Novolog Vial Sliding Scale - SQ Not Given ACHS [facility] Protocol Metoprolol Succinate 50 mg 07/19/16 22:00 07/28/16 09:38 Toprol Xl - PO 50 mg BID [facility] Administration Nystatin 1 applic 07/20/16 10:00 07/28/16 09:38 Nystop Powder - TP 1 applic BID [facility] Administration Ondansetron HCl 4 mg 07/21/16 15:16 07/25/16 22:47 Zofran Injection IVPUSH 4 mg Q6H PRN Administration NAUSEA AND/OR VOMITING Sitagliptin Phosphate 25 mg 07/20/16 07:00 07/28/16 06:44 Januvia - PO 25 mg DAILY@0700 [facility] Administration ASSESSMENT/PLAN: Patient is an 81 year old female with a significant past medical history of diabetes, foot infections with toe amputations, hypertension, CHF, atrial fib, pulmonary hypertension and renal insufficiency. She presented to the ED on 07/19 with increased unsteadiness on feet and swelling in bilateral lower extremities. She was recently hospitalized in between 03/09/2017-03/20/2017 for YOLANDE and foot wounds/cellulitis and was seen by vascular but did not follow up as an outpatient. ID Sepsis secondary of cellulitis of bilateral lower ext and/or UTI - resolved SIRS criteria on admission Assessment/Plan: Leukocytosis on admission, now trending down wbc 15.5>10.3 Entapenem 1gram stopped per ID Monitor CBC, vitals signs, urine output continue to monitor ID following Cardiology: Hypertension - improved Assessment/Plan: BP @ goal with Norvasc to 10mg daily, also on metoprolol 50mg BID Monitor and titrate as needed Atrial fibrillation - chronic Assessment/Plan: On Eliquis and Metoprolol Endocrine: Diabetes Mellitus - chronic Assessment/Plan: On Januvia, diabetic diet, sliding scale hgba1c 6.5 Hematology: Anemia - chronic Assessment/Plan: hmg/hct improving s/p venofer infusion x 2 : Renal Insufficiency - chronic Assessment/Plan: Lasix as per renal Bun/Creat improving Renal following F.E.N. Fluids: on lasix, adequate PO Electrolytes: monitor bun/creat/bmp in am. Nutrition: diabetic diet Prophylaxis: GI: Protonix 40mg po daily DVT: Eliquis Disposition: Continues to require inpatient hospitalization. Full Code. Visit type - Emergency Visit Emergency Visit: Yes ED Registration Date: 07/19/16 Care time: The patient presented to the Emergency Department on the above date and was hospitalized for further evaluation of their emergent condition. - New Patient This patient is new to me today: No - Critical Care Critical Care patient: No - Discharge Referral Referred to [facility] Med P.C[facility] No
[2016-07-28] MEDS ORDERED: FUROSEMIDE 40 MG/4 ML INJECTABLE VIAL IVPUSH ONE (14:00)
--- NOTE | 2016-07-28 14:01 | PN ---
Progress Note, Physician History of Present Illness: patient doing much better says she feels very well also the legs are doing well - Current Medication List Current Medications: Active Medications Acetaminophen (Tylenol -) 650 mg PO Q6H PRN PRN Reason: FEVER OR PAIN Last Admin: 07/27/16 12:59 Dose: 650 mg Amlodipine Besylate (Norvasc -) 10 mg PO DAILY [facility] Last Admin: 07/28/16 09:38 Dose: 10 mg Apixaban (Eliquis -) 2.5 mg PO BID [facility] Last Admin: 07/28/16 09:38 Dose: 2.5 mg Bacitracin (Bacitracin -) 1 applic TP DAILY [facility] Last Admin: 07/28/16 09:38 Dose: 1 applic Docusate Sodium (Colace -) 100 mg PO TID [facility] Last Admin: 07/28/16 06:44 Dose: 100 mg Furosemide (Lasix -) 40 mg PO DAILY [facility] Last Admin: 07/28/16 09:38 Dose: 40 mg Furosemide (Lasix Injection -) 40 mg IVPUSH ONCE ONE Stop: 07/28/16 14:01 Insulin Aspart (Novolog Vial Sliding Scale -) 1 vial SQ ACHS [facility] PRN Reason: Protocol Last Admin: 07/28/16 12:21 Dose: Not Given Metoprolol Succinate (Toprol Xl -) 50 mg PO BID [facility] Last Admin: 07/28/16 09:38 Dose: 50 mg Nystatin (Nystop Powder -) 1 applic TP BID [facility] Last Admin: 07/28/16 09:38 Dose: 1 applic Ondansetron HCl (Zofran Injection) 4 mg IVPUSH Q6H PRN PRN Reason: NAUSEA AND/OR VOMITING Last Admin: 07/25/16 22:47 Dose: 4 mg Sitagliptin Phosphate (Januvia -) 25 mg PO DAILY@0700 [facility] Last Admin: 07/28/16 06:44 Dose: 25 mg - Objective Vital Signs: Vital Signs Temperature 98.1 F 07/28/16 08:54 Pulse Rate 79 07/28/16 08:54 Respiratory Rate 20 07/28/16 08:54 Blood Pressure 139/75 07/28/16 08:54 O2 Sat by Pulse Oximetry (%) 96 07/28/16 09:00 Constitutional: Yes: No Distress, Calm Neck: Yes: Supple Cardiovascular: Yes: Regular Rate and Rhythm Respiratory: Yes: Regular, CTA Bilaterally Gastrointestinal: Yes: Normal Bowel Sounds, Soft Musculoskeletal: Yes: Other Extremities: Yes: Erythema (resolved), Other Integumentary: Yes: Erythema (resolved) Neurological: Yes: Alert, Oriented Psychiatric: Yes: Alert, Oriented Labs: CBC, BMP 07/28/16 06:30 07/28/16 06:30 INR, PTT INR 1.40 (0.82-1.09) H 07/19/16 15:00 Assessment/Plan Assessment/Plan (1) Cellulitis of both feet Code(s): L03.115 - CELLULITIS OF RIGHT LOWER LIMB L03.116 - CELLULITIS OF LEFT LOWER LIMB (2) Diabetes Code(s): E11.9 - TYPE 2 DIABETES MELLITUS WITHOUT COMPLICATIONS (3) Renal insufficiency Code(s): N28.9 - DISORDER OF KIDNEY AND URETER, UNSPECIFIED (4) Hypertension Code(s): I10 - ESSENTIAL (PRIMARY) HYPERTENSION (5) Afib Code(s): I48.91 - UNSPECIFIED ATRIAL FIBRILLATION esbl uti plan stopped all abx elevation of leg will monitor physio rest as per primary team
[2016-07-28] MEDS: ACETAMINOPHEN 325 MG TABLET (FP) PO PRN (21:53)
[2016-07-29] MEDS: DOCUSATE SODIUM 100 MG CAPSULE (FP) PO SCH ×3 (06:21→22:11)
[2016-07-29] MEDS: INSULIN SLIDING SCALE (NOVOLOG) 1 VIAL SQ SCH ×4 (06:21→22:39)
[2016-07-29] MEDS: sitaGLIPtin PHOSPHATE 25 MG TABLET (FP) PO SCH (06:22)
[2016-07-29 08:13] LABS: BASOPHIL 0.8 % (0-2.0); EOSINOPHIL 4.6 % (0-4.5); MCH 27.1 pg (25.7-33.7); MEAN CELL VOLUME 82.1 fl (80-96); MEAN PLT VOLUME 7.8 fl (7.5-11.1); NEUTROPHILS 78.2 % (42.8-82.8); PLATELET COUNT 353 K/MM3 (134-434); RDW 14.6 % (11.6-15.6); WHITE BLOOD COUNT 10.7 K/mm3 (4.0-10.0)
[2016-07-29 08:44] LABS: ALBUMIN 2.9 g/dl (3.4-5.0); BILIRUBIN,TOTAL 0.5 mg/dL (0.2-1.0); CALCIUM 9.4 mg/dL (8.5-10.1); CREATININE 1.8 mg/dL (0.55-1.02); MAGNESIUM 2.2 mg/dL (1.8-2.4); PHOSPHOROUS 3.2 mg/dL (2.5-4.9); TOT PROT 7.2 g/dl (6.4-8.2)
[2016-07-29] MEDS ORDERED: PT OWN MED DRAWER 7, Y5N ONE ×2 (09:47→21:57)
[2016-07-29] MEDS: NYSTATIN POWDER 100,000 UNITS/GM - 15 GM TOPICAL POWDER TP SCH ×2 (10:00→22:16)
[2016-07-29] MEDS: BACITRACIN 30 GM TUBE TOPICAL OINTMENT TP SCH (10:01)
[2016-07-29] MEDS: FUROSEMIDE 40 MG TABLET (FP) PO SCH (10:01)
[2016-07-29] MEDS: METOPROLOL SUCCINATE 50 MG TAB.SR.24H (FP) PO SCH ×2 (10:01→22:15)
[2016-07-29] MEDS: APIXABAN 2.5 MG TABLET PO SCH ×2 (10:01→22:14)
[2016-07-29] MEDS: amLODIPine BESYLATE 10 MG TABLET (FP) PO SCH (10:01)
--- NOTE | 2016-07-29 12:40 | PN ---
Physical Exam: SUBJECTIVE: Patient seen and examined OBJECTIVE: Patient for discharge today, states she is very anxious BP noted to be elevated, will give Metoprolol 25mg x 1 and repeat BP Vital Signs Period Temp Pulse Resp BP Sys/Diego Pulse Ox Last 24 Hr 97.5 F-98.7 F 78-96 18-20 164-175/91-97 95-96 GENERAL: The patient is awake, alert, and fully oriented, in no acute distress. HEAD: Normal with no signs of trauma. EYES: PERRL, extraocular movements intact, sclera anicteric, conjunctiva clear. No ptosis. ENT: Ears normal, nares patent, oropharynx clear without exudates, moist mucous membranes. NECK: Trachea midline, full range of motion, supple. LUNGS: Breath sounds equal, clear to auscultation bilaterally, no wheezes, no crackles, no accessory muscle use. HEART: Regular rate and rhythm, S1, S2 without murmur, rub or gallop. ABDOMEN: Soft, nontender, nondistended, normoactive bowel sounds, no guarding, no rebound, no hepatosplenomegaly, no masses. EXTREMITIES: 2+ pulses, warm, well-perfused, no edema. NEUROLOGICAL: Cranial nerves II through XII grossly intact. Normal speech, gait not observed. PSYCH: Normal mood, normal affect. SKIN: Warm, dry, normal turgor, no rashes or lesions noted Laboratory Results - last 24 hr 07/28/16 07/28/16 07/29/16 17:46 21:51 06:05 WBC 10.7 H RBC 3.93 Hgb 10.6 L Hct 32.3 L MCV 82.1 MCHC 33.0 RDW 14.6 Plt Count 353 D MPV 7.8 Neutrophils % 78.2 Lymphocytes % 9.8 Monocytes % 6.6 Eosinophils % 4.6 H Basophils % 0.8 Sodium Potassium Chloride Carbon Dioxide Anion Gap BUN Creatinine Creat Clearance w eGFR POC Glucometer 123 102 Random Glucose Calcium Phosphorus Magnesium Total Bilirubin AST ALT Alkaline Phosphatase Total Protein Albumin 07/29/16 07/29/16 07/29/16 06:05 06:18 11:57 WBC RBC Hgb Hct MCV MCHC RDW Plt Count MPV Neutrophils % Lymphocytes % Monocytes % Eosinophils % Basophils % Sodium 144 Potassium 4.3 Chloride 102 Carbon Dioxide 33 H Anion Gap 9 BUN 57 H Creatinine 1.8 H Creat Clearance w eGFR 27.07 POC Glucometer 98 101 Random Glucose 110 H Calcium 9.4 Phosphorus 3.2 Magnesium 2.2 D Total Bilirubin 0.5 D AST 9 L ALT 13 Alkaline Phosphatase 85 Total Protein 7.2 Albumin 2.9 L Active Medications Generic Name Dose Route Start Last Admin Trade Name Freq PRN Reason Stop Dose Admin Acetaminophen 650 mg 07/19/16 20:23 07/28/16 21:53 Tylenol - PO 650 mg Q6H PRN Administration FEVER OR PAIN Amlodipine Besylate 10 mg 07/21/16 17:41 07/29/16 10:01 Norvasc - PO 10 mg DAILY [facility] Administration Apixaban 2.5 mg 07/19/16 22:00 07/29/16 10:01 Eliquis - PO 2.5 mg BID [facility] Administration Bacitracin 1 applic 07/21/16 10:00 07/29/16 10:01 Bacitracin - TP 1 applic DAILY [facility] Administration Docusate Sodium 100 mg 07/21/16 14:00 07/29/16 06:21 Colace - PO Not Given TID [facility] Furosemide 40 mg 07/26/16 11:00 07/29/16 10:01 Lasix - PO 40 mg DAILY [facility] Administration Insulin Aspart 1 vial 07/19/16 22:00 07/29/16 11:59 Novolog Vial Sliding Scale - SQ Not Given ACHS [facility] Protocol Metoprolol Succinate 50 mg 07/19/16 22:00 07/29/16 10:01 Toprol Xl - PO 50 mg BID [facility] Administration Nystatin 1 applic 07/20/16 10:00 07/29/16 10:00 Nystop Powder - TP 1 applic BID [facility] Administration Ondansetron HCl 4 mg 07/21/16 15:16 07/25/16 22:47 Zofran Injection IVPUSH 4 mg Q6H PRN Administration NAUSEA AND/OR VOMITING Sitagliptin Phosphate 25 mg 07/20/16 07:00 07/29/16 06:22 Januvia - PO 25 mg DAILY@0700 [facility] Administration ASSESSMENT/PLAN:
[2016-07-29] MEDS ORDERED: METOPROLOL SUCCINATE 25 MG TAB.SR.24H (FP) PO ONE (13:00)
--- NOTE | 2016-07-29 14:23 | PN ---
Progress Note, Physician History of Present Illness: patient doing much better says she feels very well also the legs are doing well family in room - Current Medication List Current Medications: Active Medications Acetaminophen (Tylenol -) 650 mg PO Q6H PRN PRN Reason: FEVER OR PAIN Last Admin: 07/28/16 21:53 Dose: 650 mg Amlodipine Besylate (Norvasc -) 10 mg PO DAILY [facility] Last Admin: 07/29/16 10:01 Dose: 10 mg Apixaban (Eliquis -) 2.5 mg PO BID [facility] Last Admin: 07/29/16 10:01 Dose: 2.5 mg Bacitracin (Bacitracin -) 1 applic TP DAILY [facility] Last Admin: 07/29/16 10:01 Dose: 1 applic Docusate Sodium (Colace -) 100 mg PO TID [facility] Last Admin: 07/29/16 13:49 Dose: 100 mg Furosemide (Lasix -) 40 mg PO DAILY [facility] Last Admin: 07/29/16 10:01 Dose: 40 mg Insulin Aspart (Novolog Vial Sliding Scale -) 1 vial SQ ACHS [facility] PRN Reason: Protocol Last Admin: 07/29/16 11:59 Dose: Not Given Metoprolol Succinate (Toprol Xl -) 50 mg PO BID [facility] Last Admin: 07/29/16 10:01 Dose: 50 mg Nystatin (Nystop Powder -) 1 applic TP BID [facility] Last Admin: 07/29/16 10:00 Dose: 1 applic Ondansetron HCl (Zofran Injection) 4 mg IVPUSH Q6H PRN PRN Reason: NAUSEA AND/OR VOMITING Last Admin: 07/25/16 22:47 Dose: 4 mg Sitagliptin Phosphate (Januvia -) 25 mg PO DAILY@0700 [facility] Last Admin: 07/29/16 06:22 Dose: 25 mg - Objective Vital Signs: Vital Signs Temperature 97.9 F 07/29/16 10:00 Pulse Rate 94 H 07/29/16 12:39 Respiratory Rate 20 07/29/16 12:39 Blood Pressure 175/91 07/29/16 12:39 O2 Sat by Pulse Oximetry (%) 95 07/29/16 09:00 Constitutional: Yes: No Distress, Calm Cardiovascular: Yes: Regular Rate and Rhythm Respiratory: Yes: Regular, CTA Bilaterally Gastrointestinal: Yes: Normal Bowel Sounds, Soft Musculoskeletal: Yes: Other Extremities: Yes: Other Wound/Incision: Yes: Dressing Dry and Intact Neurological: Yes: Alert, Oriented Psychiatric: Yes: Alert, Oriented Labs: CBC, BMP 07/29/16 06:05 07/29/16 06:05 INR, PTT INR 1.40 (0.82-1.09) H 07/19/16 15:00 Assessment/Plan Assessment/Plan (1) Cellulitis of both feet Code(s): L03.115 - CELLULITIS OF RIGHT LOWER LIMB L03.116 - CELLULITIS OF LEFT LOWER LIMB (2) Diabetes Code(s): E11.9 - TYPE 2 DIABETES MELLITUS WITHOUT COMPLICATIONS (3) Renal insufficiency Code(s): N28.9 - DISORDER OF KIDNEY AND URETER, UNSPECIFIED (4) Hypertension Code(s): I10 - ESSENTIAL (PRIMARY) HYPERTENSION (5) Afib Code(s): I48.91 - UNSPECIFIED ATRIAL FIBRILLATION esbl uti plan stable off of abx need physio legs looking much better d/w with family in detail
--- NOTE | 2016-07-29 14:25 | PN ---
Physical Exam: SUBJECTIVE: Patient seen and examined, states she feels weak. Denies chest pain or shortness of breath. OBJECTIVE: Plan for d/c today, planned for STR with social work but patient became hypertensive Denies chest pain, shortness of breath Metoprolol 25mg one time dose administered - monitor for improvement right arm edema, negative for DVT - elevation of right arm on pillows Vital Signs Period Temp Pulse Resp BP Sys/Diego Pulse Ox Last 24 Hr 97.5 F-98.7 F 78-96 18-20 164-175/91-97 95-96 GENERAL: The patient is awake, alert, and fully oriented, in no acute distress. HEAD: Normal with no signs of trauma. EYES: PERRL, extraocular movements intact, sclera anicteric, conjunctiva clear. No ptosis. ENT: Ears normal, nares patent, oropharynx clear without exudates, moist mucous membranes. NECK: Trachea midline, full range of motion, supple. LUNGS: left lung diminished, right lung clear - encouraged to use incentive spirometer HEART: Regular rate and rhythm ABDOMEN: Soft, nontender, nondistended, +bowel sounds, no guarding, no rebound, no hepatosplenomegaly, no masses. EXTREMITIES: 2+ pulses, warm, well-perfused, no edema. NEUROLOGICAL: Normal speech, gait not observed. PSYCH: Normal mood, normal affect. SKIN: bilateral lower ext. cellulitis, left great toe wound - chronic Laboratory Results - last 24 hr 07/28/16 07/28/16 07/29/16 17:46 21:51 06:05 WBC 10.7 H RBC 3.93 Hgb 10.6 L Hct 32.3 L MCV 82.1 MCHC 33.0 RDW 14.6 Plt Count 353 D MPV 7.8 Neutrophils % 78.2 Lymphocytes % 9.8 Monocytes % 6.6 Eosinophils % 4.6 H Basophils % 0.8 Sodium Potassium Chloride Carbon Dioxide Anion Gap BUN Creatinine Creat Clearance w eGFR POC Glucometer 123 102 Random Glucose Calcium Phosphorus Magnesium Total Bilirubin AST ALT Alkaline Phosphatase Total Protein Albumin 07/29/16 07/29/16 07/29/16 06:05 06:18 11:57 WBC RBC Hgb Hct MCV MCHC RDW Plt Count MPV Neutrophils % Lymphocytes % Monocytes % Eosinophils % Basophils % Sodium 144 Potassium 4.3 Chloride 102 Carbon Dioxide 33 H Anion Gap 9 BUN 57 H Creatinine 1.8 H Creat Clearance w eGFR 27.07 POC Glucometer 98 101 Random Glucose 110 H Calcium 9.4 Phosphorus 3.2 Magnesium 2.2 D Total Bilirubin 0.5 D AST 9 L ALT 13 Alkaline Phosphatase 85 Total Protein 7.2 Albumin 2.9 L Active Medications Generic Name Dose Route Start Last Admin Trade Name Freq PRN Reason Stop Dose Admin Acetaminophen 650 mg 07/19/16 20:23 07/28/16 21:53 Tylenol - PO 650 mg Q6H PRN Administration FEVER OR PAIN Amlodipine Besylate 10 mg 07/21/16 17:41 07/29/16 10:01 Norvasc - PO 10 mg DAILY [facility] Administration Apixaban 2.5 mg 07/19/16 22:00 07/29/16 10:01 Eliquis - PO 2.5 mg BID [facility] Administration Bacitracin 1 applic 07/21/16 10:00 07/29/16 10:01 Bacitracin - TP 1 applic DAILY [facility] Administration Docusate Sodium 100 mg 07/21/16 14:00 07/29/16 13:49 Colace - PO 100 mg TID [facility] Administration Furosemide 40 mg 07/26/16 11:00 07/29/16 10:01 Lasix - PO 40 mg DAILY [facility] Administration Insulin Aspart 1 vial 07/19/16 22:00 07/29/16 11:59 Novolog Vial Sliding Scale - SQ Not Given ACHS [facility] Protocol Metoprolol Succinate 50 mg 07/19/16 22:00 07/29/16 10:01 Toprol Xl - PO 50 mg BID [facility] Administration Nystatin 1 applic 07/20/16 10:00 07/29/16 10:00 Nystop Powder - TP 1 applic BID [facility] Administration Ondansetron HCl 4 mg 07/21/16 15:16 07/25/16 22:47 Zofran Injection IVPUSH 4 mg Q6H PRN Administration NAUSEA AND/OR VOMITING Sitagliptin Phosphate 25 mg 07/20/16 07:00 07/29/16 06:22 Januvia - PO 25 mg DAILY@0700 [facility] Administration ASSESSMENT/PLAN: Patient is an 81 year old female with a significant past medical history of diabetes, foot infections with toe amputations, hypertension, CHF, atrial fib, pulmonary hypertension and renal insufficiency. She presented to the ED on 07/19 with increased unsteadiness on feet and swelling in bilateral lower extremities. She was recently hospitalized in between 03/09/2017-03/20/2017 for YOLANDE and foot wounds/cellulitis and was seen by vascular but did not follow up as an outpatient. ID Sepsis secondary of cellulitis of bilateral lower ext and/or UTI - resolved SIRS criteria on admission Assessment/Plan: Leukocytosis on admission, now resolved Entapenem 1gram stopped per ID, pt completed full course of PO antibiotics Monitor CBC, vitals signs, urine output continue to monitor ID following Cardiology: Hypertension - BP elevated - now improving Assessment/Plan: BP elevated today, discharge plan on hold On Norvasc to 10mg daily, also on metoprolol 50mg BID, given Metoprolol 25mg x 1 and monitor BP May need to titrate meds further if continues to be hypertensive Monitor and titrate as needed Atrial fibrillation - chronic Assessment/Plan: On Eliquis and Metoprolol Endocrine: Diabetes Mellitus - chronic Assessment/Plan: On Januvia, diabetic diet, sliding scale hgba1c 6.5 Hematology: Anemia - resolved Assessment/Plan: hmg/hct improving s/p venofer infusion x 2 : Renal Insufficiency - chronic Assessment/Plan: Lasix as per renal Bun/Creat improving - at baseline Renal following F.E.N. Fluids: on lasix, adequate PO Electrolytes: monitor bun/creat/bmp in am. Nutrition: diabetic diet Prophylaxis: GI: Protonix 40mg po daily DVT: Eliquis Disposition: Continues to require inpatient hospitalization. Full Code. Visit type - Emergency Visit Emergency Visit: Yes ED Registration Date: 07/19/16 Care time: The patient presented to the Emergency Department on the above date and was hospitalized for further evaluation of their emergent condition. - New Patient This patient is new to me today: No - Critical Care Critical Care patient: No - Discharge Referral Referred to [facility] Med [facility] No
--- NOTE | 2016-07-29 15:46 | PN ---
Progress Note (short form) - Note Progress Note: Renal follow up for CKD Pt seen and examined at the bedside feels better today but not at baseline s/p IV lasix yesterday Vital Signs Temperature 98.5 F 07/29/16 15:13 Pulse Rate 103 H 07/29/16 15:13 Respiratory Rate 16 07/29/16 15:13 Blood Pressure 155/75 07/29/16 15:13 O2 Sat by Pulse Oximetry (%) 95 07/29/16 09:00 Intake & Output 07/26/16 07/27/16 07/28/16 07/29/16 23:59 23:59 23:59 23:59 Intake Total 300 600 925 Output Total 4 2 Balance 300 600 921 -2 Weight 300 lb 295 lb 11.2 oz 283 lb 4.8 oz Gen: NAD, awake and alert CVS: Irregular, No M/R Lungs: + rales at lung bases Abd: Soft NT/ND Ext: trace edema in LE CBC, BMP 07/29/16 06:05 07/29/16 06:05 Current Medications Acetaminophen (Tylenol -) 650 mg PO Q6H PRN PRN Reason: FEVER OR PAIN Last Admin: 07/28/16 21:53 Dose: 650 mg Amlodipine Besylate (Norvasc -) 10 mg PO DAILY [facility] Last Admin: 07/29/16 10:01 Dose: 10 mg Apixaban (Eliquis -) 2.5 mg PO BID [facility] Last Admin: 07/29/16 10:01 Dose: 2.5 mg Bacitracin (Bacitracin -) 1 applic TP DAILY [facility] Last Admin: 07/29/16 10:01 Dose: 1 applic Docusate Sodium (Colace -) 100 mg PO TID [facility] Last Admin: 07/29/16 13:49 Dose: 100 mg Furosemide (Lasix -) 40 mg PO DAILY [facility] Last Admin: 07/29/16 10:01 Dose: 40 mg Insulin Aspart (Novolog Vial Sliding Scale -) 1 vial SQ ACHS [facility] PRN Reason: Protocol Last Admin: 07/29/16 11:59 Dose: Not Given Metoprolol Succinate (Toprol Xl -) 50 mg PO BID [facility] Last Admin: 07/29/16 10:01 Dose: 50 mg Nystatin (Nystop Powder -) 1 applic TP BID [facility] Last Admin: 07/29/16 10:00 Dose: 1 applic Ondansetron HCl (Zofran Injection) 4 mg IVPUSH Q6H PRN PRN Reason: NAUSEA AND/OR VOMITING Last Admin: 07/25/16 22:47 Dose: 4 mg Sitagliptin Phosphate (Januvia -) 25 mg PO DAILY@0700 [facility] Last Admin: 07/29/16 06:22 Dose: 25 mg A/P 81 year old woman with PMhx of CKD stage 3 (Cr ~2 on most recent discharge). DM Type 2 + retinopathy, Hypertension, Peripheral Neuropathy who presented with tenderness, pain and difficulty ambulating and noted to have BUN/Cr of 59/1.9. #CKD Stage 3 with subnephrotic proteinuria Renal function stable at this time continue lasix PO Daily outpatient follow up for CKD #SOB CXR showed some interstitial fullness but no effusions s/p IV lasix yesterday continue PO Lasix 40mg Daily #LE wound/Cellulitis Continue Abx as per ID #Normocytic Anemia s/p Venofer x 2 Trend CBC #Hyperphosphatemia Low phos diet Trend Phos James Wright DO
[2016-07-29] MEDS: ACETAMINOPHEN 325 MG TABLET (FP) PO PRN (22:15)
[2016-07-30] MEDS: DOCUSATE SODIUM 100 MG CAPSULE (FP) PO SCH ×3 (06:50→22:15)
[2016-07-30] MEDS: sitaGLIPtin PHOSPHATE 25 MG TABLET (FP) PO SCH (06:51)
[2016-07-30] MEDS: INSULIN SLIDING SCALE (NOVOLOG) 1 VIAL SQ SCH ×4 (06:51→22:25)
[2016-07-30 08:50] LABS: BASOPHIL 0.8 % (0-2.0); EOSINOPHIL 3.7 % (0-4.5); MCH 26.7 pg (25.7-33.7); MCHC 32.1 g/dl (32.0-36.0); MEAN CELL VOLUME 83.1 fl (80-96); MEAN PLT VOLUME 7.9 fl (7.5-11.1); NEUTROPHILS 77.7 % (42.8-82.8); PLATELET COUNT 369 K/MM3 (134-434); WHITE BLOOD COUNT 12.3 K/mm3 (4.0-10.0)
[2016-07-30 09:23] LABS: CALCIUM 9.4 mg/dL (8.5-10.1)
[2016-07-30 09:28] LABS: BILIRUBIN,TOTAL 0.5 mg/dL (0.2-1.0); CREATININE 1.9 mg/dL (0.55-1.02); TOT PROT 7.6 g/dl (6.4-8.2)
[2016-07-30] MEDS ORDERED: PT OWN MED DRAWER 7, Y5N ONE (09:28)
[2016-07-30] MEDS: FUROSEMIDE 40 MG TABLET (FP) PO SCH (09:31)
[2016-07-30] MEDS: APIXABAN 2.5 MG TABLET PO SCH ×2 (09:31→22:15)
[2016-07-30] MEDS: amLODIPine BESYLATE 10 MG TABLET (FP) PO SCH (09:31)
[2016-07-30] MEDS: NYSTATIN POWDER 100,000 UNITS/GM - 15 GM TOPICAL POWDER TP SCH ×2 (09:32→22:16)
[2016-07-30] MEDS: METOPROLOL SUCCINATE 50 MG TAB.SR.24H (FP) PO SCH ×2 (09:32→22:15)
[2016-07-30] MEDS: BACITRACIN 30 GM TUBE TOPICAL OINTMENT TP SCH (11:43)
[2016-07-30] MEDS ORDERED: ALPRAZolam 0.25 MG TABLET PO PRN (12:42)
--- NOTE | 2016-07-30 12:48 | PN ---
Progress Note (short form) - Note Progress Note: No fever The leg swelling and redness are less O/E Heart irregular Lungs clear Ext b/l edema has resolved and the cellulitis has resolved Stage 3 cm ulcer in the sacral area+ Vital Signs Period Temp Pulse Resp BP Sys/Diego Pulse Ox Last 24 Hr 97.8 F-98.7 F 85-103 16-20 145-158/75-97 95 Current Medications Acetaminophen (Tylenol -) 650 mg PO Q6H PRN PRN Reason: FEVER OR PAIN Last Admin: 07/29/16 22:15 Dose: 650 mg Alprazolam (Xanax -) 1 mg PO Q12H PRN PRN Reason: ANXIETY Amlodipine Besylate (Norvasc -) 10 mg PO DAILY [facility] Last Admin: 07/30/16 09:31 Dose: 10 mg Apixaban (Eliquis -) 2.5 mg PO BID [facility] Last Admin: 07/30/16 09:31 Dose: 2.5 mg Bacitracin (Bacitracin -) 1 applic TP DAILY [facility] Last Admin: 07/30/16 11:43 Dose: 1 applic Docusate Sodium (Colace -) 100 mg PO TID [facility] Last Admin: 07/30/16 06:50 Dose: 100 mg Furosemide (Lasix -) 40 mg PO DAILY [facility] Last Admin: 07/30/16 09:31 Dose: 40 mg Insulin Aspart (Novolog Vial Sliding Scale -) 1 vial SQ ACHS [facility] PRN Reason: Protocol Last Admin: 07/30/16 11:43 Dose: Not Given Metoprolol Succinate (Toprol Xl -) 50 mg PO BID [facility] Last Admin: 07/30/16 09:32 Dose: 50 mg Nystatin (Nystop Powder -) 1 applic TP BID [facility] Last Admin: 07/30/16 09:32 Dose: 1 applic Ondansetron HCl (Zofran Injection) 4 mg IVPUSH Q6H PRN PRN Reason: NAUSEA AND/OR VOMITING Last Admin: 07/25/16 22:47 Dose: 4 mg Sitagliptin Phosphate (Januvia -) 25 mg PO DAILY@0700 [facility] Last Admin: 07/30/16 06:51 Dose: 25 mg Laboratory Results - last 24 hr 07/29/16 07/29/16 07/30/16 17:23 22:32 06:00 WBC 12.3 H RBC 4.13 Hgb 11.0 Hct 34.3 MCV 83.1 MCHC 32.1 RDW 15.0 Plt Count 369 MPV 7.9 Neutrophils % 77.7 Lymphocytes % 10.6 Monocytes % 7.2 Eosinophils % 3.7 Basophils % 0.8 Sodium Potassium Chloride Carbon Dioxide Anion Gap BUN Creatinine Creat Clearance w eGFR POC Glucometer 93 119 Random Glucose Calcium Total Bilirubin AST ALT Alkaline Phosphatase Total Protein Albumin 07/30/16 07/30/16 07/30/16 06:00 06:49 11:42 WBC RBC Hgb Hct MCV MCHC RDW Plt Count MPV Neutrophils % Lymphocytes % Monocytes % Eosinophils % Basophils % Sodium 144 Potassium 4.3 Chloride 102 Carbon Dioxide 30 Anion Gap 12 BUN 54 H Creatinine 1.9 H Creat Clearance w eGFR 25.44 POC Glucometer 108 120 Random Glucose 100 Calcium 9.4 Total Bilirubin 0.5 AST 13 L D ALT 15 Alkaline Phosphatase 90 Total Protein 7.6 Albumin 3.0 L A&P 1. Cellulitis of the leg 2. Edema 3. DM 4. CKD 2 5. A.Fib 6. Anxiety Cont present care, OOB, Physiotherapy and will need SNF rehab Resume Xanax
--- NOTE | 2016-07-30 15:46 | PN ---
Progress Note, Physician History of Present Illness: stable doing well no new issues weakness - Current Medication List Current Medications: Active Medications Acetaminophen (Tylenol -) 650 mg PO Q6H PRN PRN Reason: FEVER OR PAIN Last Admin: 07/29/16 22:15 Dose: 650 mg Alprazolam (Xanax -) 1 mg PO Q12H PRN PRN Reason: ANXIETY Amlodipine Besylate (Norvasc -) 10 mg PO DAILY [facility] Last Admin: 07/30/16 09:31 Dose: 10 mg Apixaban (Eliquis -) 2.5 mg PO BID [facility] Last Admin: 07/30/16 09:31 Dose: 2.5 mg Bacitracin (Bacitracin -) 1 applic TP DAILY [facility] Last Admin: 07/30/16 11:43 Dose: 1 applic Docusate Sodium (Colace -) 100 mg PO TID [facility] Last Admin: 07/30/16 13:45 Dose: 100 mg Furosemide (Lasix -) 40 mg PO DAILY [facility] Last Admin: 07/30/16 09:31 Dose: 40 mg Insulin Aspart (Novolog Vial Sliding Scale -) 1 vial SQ ACHS [facility] PRN Reason: Protocol Last Admin: 07/30/16 11:43 Dose: Not Given Metoprolol Succinate (Toprol Xl -) 50 mg PO BID [facility] Last Admin: 07/30/16 09:32 Dose: 50 mg Nystatin (Nystop Powder -) 1 applic TP BID [facility] Last Admin: 07/30/16 09:32 Dose: 1 applic Ondansetron HCl (Zofran Injection) 4 mg IVPUSH Q6H PRN PRN Reason: NAUSEA AND/OR VOMITING Last Admin: 07/25/16 22:47 Dose: 4 mg Sitagliptin Phosphate (Januvia -) 25 mg PO DAILY@0700 [facility] Last Admin: 07/30/16 06:51 Dose: 25 mg - Objective Vital Signs: Vital Signs Temperature 98.9 F 07/30/16 15:14 Pulse Rate 88 07/30/16 15:14 Respiratory Rate 20 07/30/16 15:14 Blood Pressure 158/80 07/30/16 10:00 O2 Sat by Pulse Oximetry (%) 95 07/29/16 21:00 Constitutional: Yes: No Distress, Calm HENT: Yes: Atraumatic Cardiovascular: Yes: S1, S2, Other Respiratory: Yes: Regular, CTA Bilaterally Gastrointestinal: Yes: Normal Bowel Sounds, Soft Wound/Incision: Yes: Other (pressure ulcer sacral area) Neurological: Yes: Alert, Oriented Psychiatric: Yes: Alert, Oriented Labs: CBC, BMP 07/30/16 06:00 07/30/16 06:00 INR, PTT INR 1.40 (0.82-1.09) H 07/19/16 15:00 Assessment/Plan Assessment/Plan (1) Cellulitis of both feet Code(s): L03.115 - CELLULITIS OF RIGHT LOWER LIMB L03.116 - CELLULITIS OF LEFT LOWER LIMB (2) Diabetes Code(s): E11.9 - TYPE 2 DIABETES MELLITUS WITHOUT COMPLICATIONS (3) Renal insufficiency Code(s): N28.9 - DISORDER OF KIDNEY AND URETER, UNSPECIFIED (4) Hypertension Code(s): I10 - ESSENTIAL (PRIMARY) HYPERTENSION (5) Afib Code(s): I48.91 - UNSPECIFIED ATRIAL FIBRILLATION esbl uti plan stable off of abx need physio legs looking much better d/w with family in detail rest continue current mgmt
--- NOTE | 2016-07-30 17:50 | PN ---
Progress Note, Physician Chief Complaint: Patient seen in bed. Seems upset that she is not feeling as well as she wants to be. Good appetite. Maintains good urine output. - Current Medication List Current Medications: Active Medications Acetaminophen (Tylenol -) 650 mg PO Q6H PRN PRN Reason: FEVER OR PAIN Last Admin: 07/29/16 22:15 Dose: 650 mg Alprazolam (Xanax -) 1 mg PO Q12H PRN PRN Reason: ANXIETY Amlodipine Besylate (Norvasc -) 10 mg PO DAILY [facility] Last Admin: 07/30/16 09:31 Dose: 10 mg Apixaban (Eliquis -) 2.5 mg PO BID [facility] Last Admin: 07/30/16 09:31 Dose: 2.5 mg Bacitracin (Bacitracin -) 1 applic TP DAILY [facility] Last Admin: 07/30/16 11:43 Dose: 1 applic Docusate Sodium (Colace -) 100 mg PO TID [facility] Last Admin: 07/30/16 13:45 Dose: 100 mg Furosemide (Lasix -) 40 mg PO DAILY [facility] Last Admin: 07/30/16 09:31 Dose: 40 mg Insulin Aspart (Novolog Vial Sliding Scale -) 1 vial SQ ACHS [facility] PRN Reason: Protocol Last Admin: 07/30/16 16:25 Dose: Not Given Metoprolol Succinate (Toprol Xl -) 50 mg PO BID [facility] Last Admin: 07/30/16 09:32 Dose: 50 mg Nystatin (Nystop Powder -) 1 applic TP BID [facility] Last Admin: 07/30/16 09:32 Dose: 1 applic Ondansetron HCl (Zofran Injection) 4 mg IVPUSH Q6H PRN PRN Reason: NAUSEA AND/OR VOMITING Last Admin: 07/25/16 22:47 Dose: 4 mg Sitagliptin Phosphate (Januvia -) 25 mg PO DAILY@0700 [facility] Last Admin: 07/30/16 06:51 Dose: 25 mg - Objective Vital Signs: Vital Signs Temperature 98.7 F 07/30/16 17:18 Pulse Rate 94 H 07/30/16 17:18 Respiratory Rate 20 07/30/16 17:18 Blood Pressure 145/76 07/30/16 17:18 O2 Sat by Pulse Oximetry (%) 95 07/29/16 21:00 Constitutional: Yes: Well Nourished, Anxious Eyes: Yes: WNL HENT: Yes: WNL, Atraumatic Neck: Yes: WNL, Supple Cardiovascular: Yes: Regular Rate and Rhythm, S1, S2 Respiratory: Yes: Regular, Diminished Gastrointestinal: Yes: Normal Bowel Sounds, Abdomen, Obese Genitourinary: Yes: WNL Neurological: Yes: Alert, Oriented Psychiatric: Yes: Alert, Oriented Labs: CBC, BMP 07/30/16 06:00 07/30/16 06:00 INR, PTT INR 1.40 (0.82-1.09) H 07/19/16 15:00 Problem List - Problems (1) Cellulitis of both feet Code(s): L03.115 - CELLULITIS OF RIGHT LOWER LIMB L03.116 - CELLULITIS OF LEFT LOWER LIMB (2) Acute renal failure Code(s): N17.9 - ACUTE KIDNEY FAILURE, UNSPECIFIED (3) Afib Code(s): I48.91 - UNSPECIFIED ATRIAL FIBRILLATION (4) Cellulitis of foot, left Code(s): L03.116 - CELLULITIS OF LEFT LOWER LIMB (5) Diabetes Code(s): E11.9 - TYPE 2 DIABETES MELLITUS WITHOUT COMPLICATIONS (6) Hypertension Code(s): I10 - ESSENTIAL (PRIMARY) HYPERTENSION (7) Renal insufficiency Code(s): N28.9 - DISORDER OF KIDNEY AND URETER, UNSPECIFIED Assessment/Plan The patient's Renal functions are close to her baseline. Some degree of azotemia persists and is mostly hemodynamic in nature. On PO Lasix now. Will continue the same at this point. Will monitor the renal functions with you. Concur with the current management. Dorcas Mercer MD
[2016-07-30] MEDS: ACETAMINOPHEN 325 MG TABLET (FP) PO PRN (22:15)
[2016-07-31] MEDS: DOCUSATE SODIUM 100 MG CAPSULE (FP) PO SCH ×3 (06:15→21:28)
[2016-07-31] MEDS: sitaGLIPtin PHOSPHATE 25 MG TABLET (FP) PO SCH (06:15)
[2016-07-31] MEDS: INSULIN SLIDING SCALE (NOVOLOG) 1 VIAL SQ SCH ×4 (06:16→22:24)
[2016-07-31 08:02] LABS: ALBUMIN 2.9 g/dl (3.4-5.0); BILIRUBIN,TOTAL 0.5 mg/dL (0.2-1.0); TOT PROT 7.2 g/dl (6.4-8.2)
[2016-07-31] MEDS ORDERED: PT OWN MED DRAWER 7, Y5N ONE (09:36)
[2016-07-31] MEDS: BACITRACIN 30 GM TUBE TOPICAL OINTMENT TP SCH (09:42)
[2016-07-31] MEDS: NYSTATIN POWDER 100,000 UNITS/GM - 15 GM TOPICAL POWDER TP SCH ×2 (09:42→21:29)
[2016-07-31] MEDS: APIXABAN 2.5 MG TABLET PO SCH ×2 (09:42→21:28)
[2016-07-31] MEDS: METOPROLOL SUCCINATE 50 MG TAB.SR.24H (FP) PO SCH ×2 (09:42→21:28)
[2016-07-31] MEDS: amLODIPine BESYLATE 10 MG TABLET (FP) PO SCH (09:42)
[2016-07-31] MEDS: FUROSEMIDE 40 MG TABLET (FP) PO SCH (09:42)
--- NOTE | 2016-07-31 12:20 | PN ---
Progress Note (short form) - Note Progress Note: No fever No pain O/E Edema resolved Cellulitis resolved No redness or tenderness Heart regular Lungs clear Vital Signs Period Temp Pulse Resp BP Sys/Diego Pulse Ox Last 24 Hr 98.3 F-98.9 F 88-94 18-20 145-152/76-80 94 Current Medications Acetaminophen (Tylenol -) 650 mg PO Q6H PRN PRN Reason: FEVER OR PAIN Last Admin: 07/30/16 22:15 Dose: 650 mg Alprazolam (Xanax -) 1 mg PO Q12H PRN PRN Reason: ANXIETY Amlodipine Besylate (Norvasc -) 10 mg PO DAILY [facility] Last Admin: 07/31/16 09:42 Dose: 10 mg Apixaban (Eliquis -) 2.5 mg PO BID [facility] Last Admin: 07/31/16 09:42 Dose: 2.5 mg Bacitracin (Bacitracin -) 1 applic TP DAILY [facility] Last Admin: 07/31/16 09:42 Dose: 1 applic Docusate Sodium (Colace -) 100 mg PO TID [facility] Last Admin: 07/31/16 06:15 Dose: 100 mg Furosemide (Lasix -) 40 mg PO DAILY [facility] Last Admin: 07/31/16 09:42 Dose: 40 mg Insulin Aspart (Novolog Vial Sliding Scale -) 1 vial SQ ACHS [facility] PRN Reason: Protocol Last Admin: 07/31/16 11:36 Dose: Not Given Metoprolol Succinate (Toprol Xl -) 50 mg PO BID [facility] Last Admin: 07/31/16 09:42 Dose: 50 mg Nystatin (Nystop Powder -) 1 applic TP BID [facility] Last Admin: 07/31/16 09:42 Dose: 1 applic Ondansetron HCl (Zofran Injection) 4 mg IVPUSH Q6H PRN PRN Reason: NAUSEA AND/OR VOMITING Last Admin: 07/25/16 22:47 Dose: 4 mg Sitagliptin Phosphate (Januvia -) 25 mg PO DAILY@0700 [facility] Last Admin: 07/31/16 06:15 Dose: 25 mg Laboratory Results - last 24 hr 07/30/16 07/30/16 07/31/16 16:23 22:23 06:00 Sodium 144 Potassium 4.0 Chloride 103 Carbon Dioxide 30 Anion Gap 11 BUN 54 H Creatinine 2.0 H Creat Clearance w eGFR 23.97 POC Glucometer 98 110 Random Glucose 102 Calcium 9.0 Total Bilirubin 0.5 AST 15 ALT 15 Alkaline Phosphatase 84 Total Protein 7.2 Albumin 2.9 L 07/31/16 07/31/16 06:14 11:34 Sodium Potassium Chloride Carbon Dioxide Anion Gap BUN Creatinine Creat Clearance w eGFR POC Glucometer 104 95 Random Glucose Calcium Total Bilirubin AST ALT Alkaline Phosphatase Total Protein Albumin A&P 1. Cellulitis of the leg 2. Edema 3. DM 4. CKD 2 5. A.Fib 6. Anxiety Cont present care, OOB, Physiotherapy and will need SNF rehab Will reduce the dose of Norvasc which will help with the edema
--- NOTE | 2016-07-31 16:45 | PN ---
Progress Note, Physician History of Present Illness: doing well no new events - Current Medication List Current Medications: Active Medications Acetaminophen (Tylenol -) 650 mg PO Q6H PRN PRN Reason: FEVER OR PAIN Last Admin: 07/30/16 22:15 Dose: 650 mg Alprazolam (Xanax -) 1 mg PO Q12H PRN PRN Reason: ANXIETY Apixaban (Eliquis -) 2.5 mg PO BID [facility] Last Admin: 07/31/16 09:42 Dose: 2.5 mg Bacitracin (Bacitracin -) 1 applic TP DAILY [facility] Last Admin: 07/31/16 09:42 Dose: 1 applic Docusate Sodium (Colace -) 100 mg PO TID [facility] Last Admin: 07/31/16 13:43 Dose: 100 mg Furosemide (Lasix -) 40 mg PO DAILY [facility] Last Admin: 07/31/16 09:42 Dose: 40 mg Insulin Aspart (Novolog Vial Sliding Scale -) 1 vial SQ ACHS [facility] PRN Reason: Protocol Last Admin: 07/31/16 11:36 Dose: Not Given Metoprolol Succinate (Toprol Xl -) 50 mg PO BID [facility] Last Admin: 07/31/16 09:42 Dose: 50 mg Nystatin (Nystop Powder -) 1 applic TP BID [facility] Last Admin: 07/31/16 09:42 Dose: 1 applic Ondansetron HCl (Zofran Injection) 4 mg IVPUSH Q6H PRN PRN Reason: NAUSEA AND/OR VOMITING Last Admin: 07/25/16 22:47 Dose: 4 mg Sitagliptin Phosphate (Januvia -) 25 mg PO DAILY@0700 [facility] Last Admin: 07/31/16 06:15 Dose: 25 mg Valsartan (Diovan -) 160 mg PO DAILY [facility] - Objective Vital Signs: Vital Signs Temperature 98.9 F 07/31/16 15:22 Pulse Rate 88 07/31/16 15:22 Respiratory Rate 18 07/31/16 15:22 Blood Pressure 160/84 07/31/16 11:15 O2 Sat by Pulse Oximetry (%) 94 L 07/30/16 21:00 Constitutional: Yes: No Distress, Calm HENT: Yes: Atraumatic Neck: Yes: Supple Respiratory: Yes: Regular, CTA Bilaterally Gastrointestinal: Yes: Normal Bowel Sounds, Soft Musculoskeletal: Yes: Other Extremities: Yes: Other Integumentary: Yes: Erythema (resolved) Neurological: Yes: Alert, Oriented Psychiatric: Yes: Alert Labs: CBC, BMP 07/30/16 06:00 07/31/16 06:00 INR, PTT INR 1.40 (0.82-1.09) H 07/19/16 15:00 Assessment/Plan Assessment/Plan (1) Cellulitis of both feet Code(s): L03.115 - CELLULITIS OF RIGHT LOWER LIMB L03.116 - CELLULITIS OF LEFT LOWER LIMB (2) Diabetes Code(s): E11.9 - TYPE 2 DIABETES MELLITUS WITHOUT COMPLICATIONS (3) Renal insufficiency Code(s): N28.9 - DISORDER OF KIDNEY AND URETER, UNSPECIFIED (4) Hypertension Code(s): I10 - ESSENTIAL (PRIMARY) HYPERTENSION (5) Afib Code(s): I48.91 - UNSPECIFIED ATRIAL FIBRILLATION esbl uti plan stable off of abx need physio out of bed patinet has improved
[2016-07-31 17:57] LABS: BASOPHIL 0.9 % (0-2.0); EOSINOPHIL 2.9 % (0-4.5); MCH 26.6 pg (25.7-33.7); MCHC 32.3 g/dl (32.0-36.0); MEAN CELL VOLUME 82.3 fl (80-96); NEUTROPHILS 76.8 % (42.8-82.8); PLATELET COUNT 343 K/MM3 (134-434); RDW 15.4 % (11.6-15.6)
[2016-07-31] MEDS: ACETAMINOPHEN 325 MG TABLET (FP) PO PRN (21:28)
[2016-08-01] MEDS: sitaGLIPtin PHOSPHATE 25 MG TABLET (FP) PO SCH (06:28)
[2016-08-01] MEDS: DOCUSATE SODIUM 100 MG CAPSULE (FP) PO SCH (06:28)
[2016-08-01] MEDS: INSULIN SLIDING SCALE (NOVOLOG) 1 VIAL SQ SCH ×2 (08:17→11:57)
[2016-08-01] MEDS: FUROSEMIDE 40 MG TABLET (FP) PO SCH (09:23)
[2016-08-01] MEDS: METOPROLOL SUCCINATE 50 MG TAB.SR.24H (FP) PO SCH (09:23)
[2016-08-01] MEDS: BACITRACIN 30 GM TUBE TOPICAL OINTMENT TP SCH (09:23)
[2016-08-01] MEDS: NYSTATIN POWDER 100,000 UNITS/GM - 15 GM TOPICAL POWDER TP SCH (09:24)
[2016-08-01] MEDS ORDERED: PT OWN MED DRAWER 7, Y5N ONE (09:24)
[2016-08-01] MEDS: APIXABAN 2.5 MG TABLET PO SCH (09:25)
--- NOTE | 2016-08-01 09:40 | DS ---
Physical Exam: SUBJECTIVE: Patient seen and examined. She feels better, wants to go to rehab. OBJECTIVE: Blood pressure improving with the addition of Diovan D/c planning to STR - [facility] [place] Vital Signs Period Temp Pulse Resp BP Sys/Diego Pulse Ox Last 24 Hr 98.1 F-99.0 F 83-95 18-20 140-161/66-94 PHYSICAL EXAM GENERAL: The patient is awake, alert, and fully oriented, in no acute distress. HEAD: Normal with no signs of trauma. EYES: PERRL, extraocular movements intact, sclera anicteric, conjunctiva clear. No ptosis. ENT: Ears normal, nares patent, oropharynx clear without exudates, moist mucous membranes. NECK: Trachea midline, full range of motion, supple. LUNGS: left lung diminished, right lung clear - encouraged to use incentive spirometer HEART: Regular rate and rhythm ABDOMEN: Soft, nontender, nondistended, +bowel sounds, no guarding, no rebound, no hepatosplenomegaly, no masses. EXTREMITIES: 2+ pulses, warm, well-perfused, no edema. NEUROLOGICAL: Normal speech, gait not observed. PSYCH: Normal mood, normal affect. SKIN: bilateral lower ext. cellulitis, left great toe wound - chronic LABS Laboratory Results - last 24 hr 07/31/16 07/31/16 07/31/16 11:34 16:42 17:50 WBC 13.0 H RBC 4.10 Hgb 10.9 Hct 33.8 MCV 82.3 MCHC 32.3 RDW 15.4 Plt Count 343 MPV 8.0 Neutrophils % 76.8 Lymphocytes % 10.6 Monocytes % 8.8 Eosinophils % 2.9 Basophils % 0.9 POC Glucometer 95 104 07/31/16 08/01/16 22:19 06:51 WBC RBC Hgb Hct MCV MCHC RDW Plt Count MPV Neutrophils % Lymphocytes % Monocytes % Eosinophils % Basophils % POC Glucometer 90 100 HOSPITAL COURSE: Date of Admission:07/19/16 Date of Discharge: 08/01/16 ASSESSMENT/PLAN: Patient is an 81 year old female with a significant past medical history of diabetes, foot infections with toe amputations, hypertension, CHF, atrial fib, pulmonary hypertension and renal insufficiency. She presented to the ED on 07/19 with increased unsteadiness on feet and swelling in bilateral lower extremities. She was recently hospitalized in between 03/09/2017-03/20/2017 for YOLANDE and foot wounds/cellulitis and was seen by vascular but did not follow up as an outpatient. ID Sepsis/SIRS critiera on admission - now resolved Assessment/Plan: Leukocytosis on admission, now resolved All antibiotics stopped/hemodynamically stable for d/c today Cardiology: Hypertension - BP elevated - chronic/Improved Assessment/Plan: Norvasc d/pool over the weekend, now on Diovan 160mg, also on metoprolol 50mg BID, BP now more stable Atrial fibrillation - chronic Assessment/Plan: On Eliquis and Metoprolol Endocrine: Diabetes Mellitus - chronic Assessment/Plan: On Januvia, diabetic diet, sliding scale [id number] 6.5 Hematology: Anemia - resolved Assessment/Plan: hmg/hct improving : Renal Insufficiency - chronic Assessment/Plan: Lasix as per renal Bun/Creat improving - at baseline Disposition: Discharge to short term rehab. Full Code. Minutes to complete discharge: 60 Discharge Summary Reason For Visit: CELLULITIS OF BOTH FEET Current Active Problems Cellulitis of both feet (Acute) Condition: Improved - Instructions Diet, Activity, Other Instructions: Continue medications as ordered. Monitor labs for worsening kidney function. Elevated right hand for edema - right hand negative for DVT may take shower Activity as tolerated pressure ulcer to buttocks/vascular ulcer to left toes Diabetic diet Please call with any questions [facility] [employer] [phone] Referrals: Ina Tucker MD [Primary Care Provider] - Disposition: CARE HOME FACILITY - Home Medications Comprehensive Discharge Medication List: Ambulatory Orders Alprazolam [Alprazolam ER] 1 mg PO BID PRN 03/09/16 Apixaban [Eliquis] 2.5 mg PO BID 03/09/16 Furosemide [Lasix -] 40 mg PO DAILY #30 tablet 03/20/16 Metoprolol Succinate [Toprol XL -] 50 mg PO BID #60 tab.sr.24h 03/20/16 Acetaminophen [Tylenol .Extra-Strength -] 1,000 mg PO PRN PRN 07/20/16 Paxil 20 mg PO DAILY 07/20/16 Acetaminophen [Tylenol .Regular Strength -] 650 mg PO Q6H PRN #0 tablet Amlodipine Besylate [Norvasc -] 10 mg PO DAILY tablet 07/29/16 Bacitracin - [Bacitracin Topical Ointment -] 1 applic TP DAILY tube 07/29/16 Insulin Sliding Scale [Novolog Vial Sliding Scale -] 1 vial SQ ACHS units 07/29 Nystatin Powder [Nystop Powder -] 1 applic TP BID applic 07/29/16 Ondansetron Injection [Zofran Injection] 4 mg IVPUSH Q6H PRN #0 vial 07/29/16 Sitagliptin Phosphate [Januvia -] 25 mg PO DAILY@0700 tab 07/29/16 This patient is new to me today: No Emergency Visit: Yes ED Registration Date: 07/19/16 Care time: The patient presented to the Emergency Department on the above date and was hospitalized for further evaluation of their emergent condition. Critical Care patient: No - Discharge Referral Referred to [facility] Med P.C.: No
[2016-08-01] MEDS ORDERED: VALSARTAN 160 MG TABLET (UD) PO SCH (10:00)
[2016-08-01 10:48] VITALS: BP 156/82; PULSE 90; TEMP 98.3
--- NOTE | 2016-08-01 16:27 | PN ---
Progress Note (short form) - Note Progress Note: Renal follow up for CKD Pt seen and examined at the bedside for dishcarge today no acute complaints sob is improved no Abd pain, N/V/D continues to feel fatigued Vital Signs Temperature 98.3 F 08/01/16 09:00 Pulse Rate 90 08/01/16 09:00 Respiratory Rate 18 08/01/16 09:00 Blood Pressure 156/82 08/01/16 09:00 O2 Sat by Pulse Oximetry (%) 94 L 07/30/16 21:00 Intake & Output 07/29/16 07/30/16 07/31/16 08/01/16 23:59 23:59 23:59 23:59 Intake Total 60 420 600 670 Output Total 2 Balance 58 420 600 670 Weight 283 lb 4.8 oz 278 lb 11.2 oz 276 lb 6.4 oz 276 lb 1 oz Gen: NAD, awake and alert CVS: Irregular, No M/R Lungs: + rales at lung bases Abd: Soft NT/ND Ext: trace edema in LE CBC, BMP 07/31/16 17:50 07/31/16 06:00 A/P 81 year old woman with PMhx of CKD stage 3 (Cr ~2 on most recent discharge). DM Type 2 + retinopathy, Hypertension, Peripheral Neuropathy who presented with tenderness, pain and difficulty ambulating and noted to have BUN/Cr of 59/1.9. #CKD Stage 3 with subnephrotic proteinuria Renal function stable at this time continue lasix PO Daily to follow up s/p rehab in the office for monitoring of renal function advised good oral intake avoid NSAIDS, Fleet enemas, Contrast exposure #SOB CXR showed some interstitial fullness but no effusions s/p IV lasix yesterday continue PO Lasix 40mg Daily James Wright DO
== END 2016-08-01 12:49 | DRG 872 ==
LOC: JER 13:25 → JERBED 17:14 → J4S 22:29 → J8W 07-26 20:24
PROVIDERS: ADMIT Internal Medicine; ATTEND Nurse Practitioner Family
DX: A41.9 Sepsis, unspecified organism (principal); L03.115 Cellulitis of right lower limb; L03.116 Cellulitis of left lower limb; N39.0 Urinary tract infection, site not specified; I13.0 Hypertensive heart and chronic kidney disease with heart failure and stage 1 through stage 4 chronic kidney disease, or unspecified chronic kidney disease; Z68.41 Body mass index [BMI] 40.0-44.9, adult; I10 Essential (primary) hypertension; I27.2 Other secondary pulmonary hypertension; R26.81 Unsteadiness on feet; I48.2 Chronic atrial fibrillation; R80.8 Other proteinuria; F41.8 Other specified anxiety disorders; I73.89 Other specified peripheral vascular diseases; E11.319 Type 2 diabetes mellitus with unspecified diabetic retinopathy without macular edema; G62.89 Other specified polyneuropathies; E83.39 Other disorders of phosphorus metabolism; B96.20 Unspecified Escherichia coli [E. coli] as the cause of diseases classified elsewhere; D64.9 Anemia, unspecified; N18.3 Chronic kidney disease, stage 3 (moderate); I50.9 Heart failure, unspecified; E66.01 Morbid (severe) obesity due to excess calories; Z89.422 Acquired absence of other left toe(s); Z85.828 Personal history of other malignant neoplasm of skin; Z71.3 Dietary counseling and surveillance
CPT/HCPCS: 36415; 71010-TC; 71020-TC; 73590-TC-LT; 73590-TC-RT; 73630-TC-LT; 73630-TC-RT; 80048; 80053; 81003; 81015; 82550; 82570; 82728; 83036; 83540; 83550; 83605; 83735; 84100; 84156; 84484; 85025; 85610; 85651; 87040; 87086; 87186; 93005; 93010; 93971; 94010; 97162-PG; 99285-25; G0480; J1756

== ENCOUNTER 2017-11-02 11:59 | Inpatient (IN) | payer OTHER ==
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
[2017-11-02 15:14] LABS: BASO % 0.8 % (0-2.0); EOS % 0.1 % (0-4.5); HEMATOCRIT 36.1 % (32.4-45.2); HEMOGLOBIN 11.6 GM/dL (10.7-15.3); LYMPH % 4.1 % (8-40); MCH 26.8 pg (25.7-33.7); MCHC 32.2 g/dl (32.0-36.0); MEAN CELL VOLUME 83.3 fl (80-96); MEAN PLT VOLUME 7.9 fl (7.5-11.1); MONO % 3.4 % (3.8-10.2); NEUT % 91.6 % (42.8-82.8); PLATELET COUNT 265 K/MM3 (134-434); RBC 4.33 M/mm3 (3.60-5.2); WHITE BLOOD COUNT 10.8 K/mm3 (4.0-10.0)
[2017-11-02 15:55] LABS: ALBUMIN 3.1 g/dl (3.4-5.0); ANION GAP 13 (8-16); BILIRUBIN,TOTAL 0.8 mg/dL (0.2-1.0); BLOOD UREA NITROGEN 42 mg/dL (7-18); CALCIUM 9.1 mg/dL (8.5-10.1); CHLORIDE 108 mmol/L (98-107); CO2 21 mmol/L (21-32); CREATININE 1.6 mg/dL (0.55-1.02); GLUCOSE,RANDOM 125 mg/dL (74-106); POTASSIUM 4.8 mmol/L (3.5-5.1); SGOT/AST 16 U/L (15-37); SGPT/ALT 15 U/L (12-78); SODIUM 142 mmol/L (136-145); TOT PROT 8.1 g/dl (6.4-8.2)
[2017-11-02 15:56] LABS: ALK PHOS 122 U/L (45-117)
[2017-11-02 16:28] LABS: URINE APPEARANCE CLOUDY; URINE BILIRUBIN NEGATIVE (<2.0 mg/dL); URINE COLOR YELLOW; URINE GLUCOSE (UA) NEGATIVE (NEGATIVE); URINE KETONE NEGATIVE (NEGATIVE); URINE NITRITE POSITIVE (NEGATIVE); URINE UROBILINOGEN NEGATIVE mg/dL (0.2-1.0)
[2017-11-02 16:55] LABS: URINE LEUK ESTERASE 3+ (NEGATIVE); URINE PROTEIN 2+ (NEGATIVE)
[2017-11-02 16:58] LABS: EPI CELLS RARE /HPF (FEW); URINE BACTERIA FEW /hpf (NONE SEEN); URINE HYALINE CAST 4 /lpf; URINE MUCUS FEW
[2017-11-02] MEDS ORDERED: CEFTRIAXONE 1,000 MG in DEXTROSE 5%-WATER - 50 ML IVPB ONE (17:35)
[2017-11-02] MEDS ORDERED: CEFTRIAXONE 1 GM/50 ML BAG ONE (18:04)
[2017-11-02 18:08] LABS: ANISOCYTOSIS 1+; OVALOCYTE 1+; PLATELET ESTIMATE ADEQUATE
--- NOTE | 2017-11-02 18:40 | HP ---
CHIEF COMPLAINT: Lethargy/n/v PCP: HISTORY OF PRESENT ILLNESS: Pt is a morbidly obese 82 yo F with PMHx of DM, AFIB, CHF, HTN, Pulmonary Hypertension, ESBL UTI, and PAD s/p amputation of LLE 3rd and 4th digits, presenting from home with lethargy, nausea/vomiting. Pt has noted burning on urination for about 3 weeks, with associated nausea and vomiting and lethargy that has worsened over the past 3 days. Pt had an episode of non bloody vomit in the ED, no chills or fever. Pt has gradually lost mobility to the extent of not being able to change her own diaper, and over the past three days she has felt too weak and in pain and unable to to move out of the chair where she sleeps. Pt lives at home with son and used to be cared for by the son's who recently developed a stroke and is in hospital. The son is currently the sole caregiver for both his sick mother and , who shops,cooks and works. Today, the pt's neighbor checked on her and found her covered in feces and urine , (she had been sitting in for 3 days). Pt however said she has a good appetite, with last meal this am prepared by son. Pt said she is able to feed herself without assistance and has no dysphagia. Pt was previously treated for ESBL UTI (june 2017). No SOB, no ALBARADO, no CP,no PND. No syncope. ER course was notable for: (1) WBC-10.8, neutrophilia, UA- LE3+, pyuria (2) ceftriaxone- (3) EKG-87bpm, irreg rate and rhythm-afib, anterolat infarct, QTC-445 (Afib,QS in V1-V3, Q in III, aVF) HOME MEDICATIONS: Home Medications Medication Instructions Recorded Apixaban [Eliquis -] 2.5 mg PO BID 11/02/17 Enalapril Maleate [Vasotec -] 10 mg PO DAILY 11/02/17 Furosemide [Lasix -] 40 mg PO DAILY 11/02/17 Linagliptin [Tradjenta] 5 mg PO DAILY 11/02/17 Metoprolol Succinate 100 mg PO DAILY 11/02/17 Paroxetine HCl 10 mg PO DAILY 11/02/17 Sitagliptin Phosphate [Januvia] 25 mg PO DAILY 11/02/17 Valsartan 320 mg PO DAILY 11/02/17 PHYSICAL EXAMINATION Vital Signs - 24 hr 11/02/17 12:00 Temperature 97.7 F Pulse Rate 95 H Respiratory 17 Rate Blood Pressure 165/97 O2 Sat by Pulse 98 Oximetry (%) GENERAL: Morbidly obese F, Awake, alert, and fully oriented, in no acute distress, sating well in room air. Comfortable except for painful distress with movement EYES: Pupils equal, round and reactive to light, extraocular movements intact EARS, NOSE, THROAT: Dry mucous membranes. NECK: supple LUNGS: Distant Breath sounds (body habitus)no wheezes, and no crackles. HEART: S1 and S2 ABDOMEN: Obese, Soft, nontender, normoactive bowel sounds LOWER EXTREMITIES: Onychomycosis, 2+ pulses, warm, chronic skin changes, bilateral LE. NEUROLOGICAL: Cranial nerves 2-8,10-12 intact. Normal speech. Muscle strength UE bilaterally 5/5, LE bilaterally able to lift against gravity, equal sensation bilaterally SKIN: Irritant dermatitis in perineal region. Sacral area with stage 2 decubitus ulcer, with skin erosion and speckles of blood. Hyperemic intertrigous areas- groin, breast, Laboratory Results - last 24 hr 11/02/17 11/02/17 11/02/17 15:10 15:10 15:59 WBC 10.8 H RBC 4.33 Hgb 11.6 Hct 36.1 MCV 83.3 MCH 26.8 MCHC 32.2 RDW 16.0 H Plt Count 265 D MPV 7.9 Absolute Neuts (auto) 9.9 Total Counted 100 Neutrophils % 91.6 H Neutrophils % (Manual) 88.0 H Band Neutrophils % 1.0 Lymphocytes % 4.1 L D Lymphocytes % (Manual) 6.0 L Monocytes % 3.4 L Monocytes % (Manual) 4 Eosinophils % 0.1 D Basophils % 0.8 Basophils % (Manual) 1.0 Nucleated RBC % 0 Differential Comment Man diff performed Platelet Estimate Adequate Platelet Comment Poikilocytosis 1+ Anisocytosis 1+ Ovalocytes 1+ Sodium 142 Potassium 4.8 Chloride 108 H Carbon Dioxide 21 Anion Gap 13 BUN 42 H Creatinine 1.6 H Creat Clearance w eGFR 30.94 Random Glucose 125 H Calcium 9.1 Total Bilirubin 0.8 AST 16 ALT 15 Alkaline Phosphatase 122 H Creatine Kinase 57 Troponin I < 0.02 Total Protein 8.1 Albumin 3.1 L Urine Color Yellow Urine Appearance Cloudy Urine pH 5.0 Ur Specific [place] 1.013 Urine Protein 2+ H Urine Glucose (UA) Negative Urine Ketones Negative Urine Blood 1+ H Urine Nitrite Positive Urine Bilirubin Negative Urine Urobilinogen Negative Ur Leukocyte Esterase 3+ H Urine WBC (Auto) 208 Urine RBC (Auto) 10 Ur Epithelial Cells Rare Urine Bacteria Few Hyaline Casts 4 Urine Mucus Few ECHO 2016: Elevated RV pressure ASSESSMENT/PLAN: Pt is a morbidly obese, 82 yo F with PMHx of DM, AFIB, CHF, HTN, Pulmonary Hypertension, ESBL UTI, and PAD s/p amputation of LLE 3rd and 4th digits, presenting from home with lethargy, nausea/vomiting, found to have burning on urination with positive UA, intertrigous candidiasis and decubitous ulcers UTI Positive UA with burning on micturition, with n/v Vomiting resolved for now Hx of ESBL UTI Given rocephin in ED Iv 1g ertapenem daily Ucx pending Gentle hydration- NS @42/hr Intertrigous candidiasis Related to the morbid obesity Nystatin powder Improved hygiene Sacral decubitus ulcers Related to the morbid obesity with PAD and s/p amputation Turn Q2H Wound care Pain mx with tylenol PT R/O neglect Will need SNF placement DM Pt appears to take gliptins at home Will reconcile meds in am BGM ACHS ISS ACHS AFIB On eliquis- continue Metoprolol Rate controlled No need for cardiac monitoring at this time CHF/Pulmonary Hypertension ECHO with RV strain Could be 2/2 to BARBRA/OHS Not in exacerbation Cont metoprolol ECHO-in am HTN Cont metoprolol 100mg daily Hold enalapril/valsartan- confirm meds FEN NS@42/hr Monitor lytes and replete as needed Diet-diabetic DVT Cont eliquis Dispo Med Surg- will benefit from SNF Will confirm DNI/DNR by pt with documentation witnessed by son Visit type - Emergency Visit Emergency Visit: Yes ED Registration Date: 11/02/17 Care time: The patient presented to the Emergency Department on the above date and was hospitalized for further evaluation of their emergent condition. - New Patient This patient is new to me today: Yes Date on this admission: 11/02/17 - Critical Care Critical Care patient: No
[2017-11-02] MEDS ORDERED: ACETAMINOPHEN 325 MG TABLET (FP) PO PRN (18:49)
[2017-11-02] MEDS ORDERED: SODIUM CHLORIDE 1,000 ML IV SCH (19:00)
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
[2017-11-02] MEDS ORDERED: ERTAPENEM SODIUM 1 GM VIAL ONE (19:40)
[2017-11-02] MEDS: ERTAPENEM SODIUM 1 GM in SODIUM CHLORIDE 50 ML IVPB SCH (19:53)
--- NOTE | 2017-11-02 20:46 | HP ---
CHIEF COMPLAINT: burning with urination HISTORY OF PRESENT ILLNESS: 82 y.o. F w/ PMH of CHF, HTN, PVD, DM2, UTI, and Afib (on Eliquis) presents to the ED after being found by her neighbor sitting in her own stool and urine for 3 days. Pt. is in the care of her son and daughter in-law and has a health aide visiting once a month. Pt. has food prepared for her by her son but d/t the daughter in law having a recent stroke was unable to fully attend to the patient. Pt. has had a previous hx. 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 ER course was notable for: (1)UTI (2)Covered in stool (3) Recent Travel: No PAST MEDICAL HISTORY: CHF, HTN, PVD, DM2, Afib (on Eliquis) PAST SURGICAL HISTORY: Left leg 3rd and 4th digit amputations. Social History: Smoking: No Alcohol:No Drugs: No Family History: Allergies: No Known Allergies Allergy (Verified 11/02/17 12:10) HOME MEDICATIONS: Home Medications Medication Instructions Recorded Apixaban [Eliquis -] 2.5 mg PO BID 11/02/17 Enalapril Maleate [Vasotec -] 10 mg PO DAILY 11/02/17 Furosemide [Lasix -] 40 mg PO DAILY 11/02/17 Linagliptin [Tradjenta] 5 mg PO DAILY 11/02/17 Metoprolol Succinate 100 mg PO DAILY 11/02/17 Paroxetine HCl 10 mg PO DAILY 11/02/17 Sitagliptin Phosphate [Januvia] 25 mg PO DAILY 11/02/17 Valsartan 320 mg PO DAILY 11/02/17 REVIEW OF SYSTEMS CONSTITUTIONAL: generalized weaknes,nausea Absent: fever, chills, diaphoresis,s, malaise HEENT: Absent: rhinorrhea, nasal congestion, throat pain, throat swelling, difficulty swallowing, mouth swelling, ear pain, eye pain, visual changes CARDIOVASCULAR: Absent: chest pain, syncope, palpitations, irregular heart rate, lightheadedness , peripheral edema RESPIRATORY: Absent: cough, shortness of breath, dyspnea with exertion, orthopnea, wheezing, stridor, hemoptysis GASTROINTESTINAL: nausea, vomiting, Absent: abdominal pain, abdominal distension, diarrhea, constipation, melena, hematochezia GENITOURINARY: dysuria, Absent: frequency, urgency, hesitancy, hematuria, flank pain, genital pain MUSCULOSKELETAL: Absent: myalgia, arthralgia, joint swelling, back pain, neck pain SKIN: rash, itching, Absent: pallor NEUROLOGIC: Absent: headache, focal weakness or paresthesias, dizziness, unsteady gait, seizure, mental status changes PHYSICAL EXAMINATION Vital Signs - 24 hr 11/02/17 12:00 Temperature 97.7 F Pulse Rate 95 H Respiratory 17 Rate Blood Pressure 165/97 O2 Sat by Pulse 98 Oximetry (%) GENERAL: Awake, alert, and fully oriented, speaking, in no acute distress. HEAD: Normal with no signs of trauma. EYES: Pupils equal, round and reactive to light, extraocular movements intact, sclera anicteric, conjunctiva clear. No lid lag. EARS, NOSE, THROAT: Ears normal, nares patent, oropharynx had white plaques on tongue, dry mucous membranes. NECK: Normal range of motion, supple without lymphadenopathy, JVD+ on the left side, no masses. LUNGS: Exam limited d/t body habitus: Breath sounds equal, clear to auscultation bilaterally. No wheezes, and no crackles. No accessory muscle use. HEART: Fast rate, regular rhythm, normal S1 and S2 without murmur, rub or gallop. ABDOMEN: Exam limited d/t body habiuts: Soft, nontender, not distended, normoactive bowel sounds, no guarding, no rebound, no masses. No hepatomegaly or splenomegaly. MUSCULOSKELETAL: No CVA tenderness. UPPER EXTREMITIES: cool, well-perfused. No cyanosis. No clubbing. 5/5 muscle strength. LOWER EXTREMITIES: 2+ dorsal pedal pulses, warm, well-perfused. No calf tenderness. Onchymycosis bilaterally on feet up to the calves. NEUROLOGICAL: Cranial nerves II-XII intact. Normal speech. Normal gait. Limited ability to assess resources d/t body habitus. PSYCHIATRIC: Cooperative. Good eye contact. Appropriate mood and affect. SKIN: friable tissue over the sacrum and gluteal folds, erthematous tissue under the pannus and breasts. Laboratory Results - last 24 hr 11/02/17 11/02/17 11/02/17 14:50 15:10 15:10 WBC 10.8 H RBC 4.33 Hgb 11.6 Hct 36.1 MCV 83.3 MCH 26.8 MCHC 32.2 RDW 16.0 H Plt Count 265 D MPV 7.9 Absolute Neuts (auto) 9.9 Total Counted 100 Neutrophils % 91.6 H Neutrophils % (Manual) 88.0 H Band Neutrophils % 1.0 Lymphocytes % 4.1 L D Lymphocytes % (Manual) 6.0 L Monocytes % 3.4 L Monocytes % (Manual) 4 Eosinophils % 0.1 D Basophils % 0.8 Basophils % (Manual) 1.0 Nucleated RBC % 0 Differential Comment Man diff performed Platelet Estimate Adequate Platelet Comment Poikilocytosis 1+ Anisocytosis 1+ Ovalocytes 1+ Sodium 142 Potassium 4.8 Chloride 108 H Carbon Dioxide 21 Anion Gap 13 BUN 42 H Creatinine 1.6 H Creat Clearance w eGFR 30.94 Random Glucose 125 H Calcium 9.1 Total Bilirubin 0.8 AST 16 ALT 15 Alkaline Phosphatase 122 H Creatine Kinase 57 Troponin I < 0.02 Total Protein 8.1 Albumin 3.1 L Lipase Cancelled Urine Color Urine Appearance Urine pH Ur Specific [place] Urine Protein Urine Glucose (UA) Urine Ketones Urine Blood Urine Nitrite Urine Bilirubin Urine Urobilinogen Ur Leukocyte Esterase Urine WBC (Auto) Urine RBC (Auto) Ur Epithelial Cells Urine Bacteria Hyaline Casts Urine Mucus 11/02/17 15:59 WBC RBC Hgb Hct MCV MCH MCHC RDW Plt Count MPV Absolute Neuts (auto) Total Counted Neutrophils % Neutrophils % (Manual) Band Neutrophils % Lymphocytes % Lymphocytes % (Manual) Monocytes % Monocytes % (Manual) Eosinophils % Basophils % Basophils % (Manual) Nucleated RBC % Differential Comment Platelet Estimate Platelet Comment Poikilocytosis Anisocytosis Ovalocytes Sodium Potassium Chloride Carbon Dioxide Anion Gap BUN Creatinine Creat Clearance w eGFR Random Glucose Calcium Total Bilirubin AST ALT Alkaline Phosphatase Creatine Kinase Troponin I Total Protein Albumin Lipase Urine Color Yellow Urine Appearance Cloudy Urine pH 5.0 Ur Specific [place] 1.013 Urine Protein 2+ H Urine Glucose (UA) Negative Urine Ketones Negative Urine Blood 1+ H Urine Nitrite Positive Urine Bilirubin Negative Urine Urobilinogen Negative Ur Leukocyte Esterase 3+ H Urine WBC (Auto) 208 Urine RBC (Auto) 10 Ur Epithelial Cells Rare Urine Bacteria Few Hyaline Casts 4 Urine Mucus Few ASSESSMENT/PLAN: 82 y.o. F w/ PMH of CHF, HTN, PVD, DM2, UTI, and Afib( on Eliquis) present to the ED with burning sensation on urination, covered in stool and dehydrated. #UTI - Hx. of UTI resistant to Levaquin, Bactrim and Unasyn - Given 1 gm Ceftriaxone in the ED( 11/02/17) - UA + - f/u UCx. and BCx. - consult ID for recommendation - 10.8k WBC, 91% Neutrophils #Dehydration - NS @ 42ml/hr #HTN - f/u pharmacy for accurate home meds -continue Metoprolol for HTN #Pressure/Incontinence Ulcers - consult wound care -q2h position change #DM2 - Insulin sliding scale #Afib -c/w Metoprolol and Eliquis #DVT PPx. - c/w eliquis #Dispo - f/u DNR/ DNI status per patients wishes - consider SNF per patients wishes Visit type - Emergency Visit Emergency Visit: No - New Patient This patient is new to me today: No - Critical Care Critical Care patient: No Hospitalist Screening - Colonoscopy Questionnaire Colonoscopy Questionnaire: Colonoscopy Questionnaire: did not ask - Patient: 50 - 75 years old and never had a screening colonoscopy: No History of colon or rectal polyps, or CA: Unknown History of IBD, Crohn's disease or UC: Unknown History of abdominal radiation therapy as a child: Unknown - Relative: 1 with colon or rectal CA, or polyps at age 60 or younger: Unknown Colon or rectal CA diagnosed at age 45 or younger: Unknown Multiple relatives with colon or rectal CA: Unknown (Did not ask.) - Outcome: Screening Result: Negative Screen
[2017-11-02] MEDS ORDERED: PARoxetine HCL 10 MG TABLET (FP) ONE (21:11)
[2017-11-02] MEDS: PARoxetine HCL 10 MG TABLET (FP) PO SCH (21:16)
[2017-11-02] MEDS: NYSTATIN POWDER 100,000 UNITS/GM - 15 GM TOPICAL POWDER TP SCH (22:17)
[2017-11-02] MEDS: APIXABAN 2.5 MG TABLET PO SCH (22:17)
[2017-11-02] MEDS ORDERED: HEMOQUE TEST 1 EACH EACH ONE (22:28)
[2017-11-02] MEDS: INSULIN SLIDING SCALE (NOVOLOG) 1 VIAL SQ SCH (22:49)
[2017-11-03 06:47] LABS: BASO % 0.5 % (0-2.0); EOS % 0.1 % (0-4.5); HEMATOCRIT 32.4 % (32.4-45.2); HEMOGLOBIN 10.6 GM/dL (10.7-15.3); LYMPH % 6.2 % (8-40); MCHC 32.6 g/dl (32.0-36.0); MEAN CELL VOLUME 82.7 fl (80-96); MEAN PLT VOLUME 7.9 fl (7.5-11.1); MONO % 4.9 % (3.8-10.2); NEUT % 88.3 % (42.8-82.8); PLATELET COUNT 244 K/MM3 (134-434); RBC 3.91 M/mm3 (3.60-5.2); RDW 15.7 % (11.6-15.6); WHITE BLOOD COUNT 8.9 K/mm3 (4.0-10.0)
[2017-11-03] MEDS: INSULIN SLIDING SCALE (NOVOLOG) 1 VIAL SQ SCH ×4 (07:15→21:43)
[2017-11-03 07:19] LABS: CALCIUM 8.7 mg/dL (8.5-10.1); CHLORIDE 105 mmol/L (98-107); POTASSIUM 4.2 mmol/L (3.5-5.1); SODIUM 140 mmol/L (136-145)
[2017-11-03 07:24] LABS: ALBUMIN 2.8 g/dl (3.4-5.0); ALK PHOS 100 U/L (45-117); ANION GAP 10 (8-16); BILIRUBIN,TOTAL 0.6 mg/dL (0.2-1.0); BLOOD UREA NITROGEN 45 mg/dL (7-18); CO2 25 mmol/L (21-32); CREATININE 1.7 mg/dL (0.55-1.02); GLUCOSE,RANDOM 98 mg/dL (74-106); MAGNESIUM 2.1 mg/dL (1.8-2.4); PHOSPHOROUS 2.7 mg/dL (2.5-4.9); SGOT/AST 16 U/L (15-37); SGPT/ALT 16 U/L (12-78); TOT PROT 7.3 g/dl (6.4-8.2)
[2017-11-03] MEDS ORDERED: ONDANSETRON *ODT* 4 MG TABLET SL PRN (08:34)
--- NOTE | 2017-11-03 09:36 | EKG ---
Test Reason : Blood Pressure : / mmHG Vent. Rate : 087 BPM Atrial Rate : 138 BPM P-R Int : 000 ms QRS Dur : 088 ms QT Int : 370 ms P-R-T Axes : 000 -11 092 degrees QTc Int : 445 ms ATRIAL FIBRILLATION INFERIOR INFARCT , AGE UNDETERMINED ANTERIOR INFARCT (CITED ON OR BEFORE 11-JAN-2013) ABNORMAL ECG WHEN COMPARED WITH ECG OF 19-JUL-2016 15:58, NO SIGNIFICANT CHANGE WAS FOUND Confirmed by MARIA VICTORIA BALDERAS MD ([id number]) on 11/03/2017 9:35:41 AM Referred By: Confirmed By:MARIA VICTORIA BALDERAS MD
[2017-11-03] MEDS: APIXABAN 2.5 MG TABLET PO SCH ×2 (10:23→21:43)
[2017-11-03] MEDS: PARoxetine HCL 10 MG TABLET (FP) PO SCH (10:23)
[2017-11-03] MEDS: NYSTATIN POWDER 100,000 UNITS/GM - 15 GM TOPICAL POWDER TP SCH (10:23)
[2017-11-03] MEDS: ERTAPENEM SODIUM 1 GM in SODIUM CHLORIDE 50 ML IVPB SCH (12:12)
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
[2017-11-03] MEDS: FUROSEMIDE 40 MG TABLET (FP) PO SCH (15:43)
[2017-11-03] MEDS: VALSARTAN 160 MG TABLET (UD) PO SCH (16:59)
--- NOTE | 2017-11-03 18:42 | PN ---
Physical Exam: SUBJECTIVE: Patient seen and examined. No acute events overnight. Pt. was able to void urine and stool over the night. Pt. denies dysuria, chest pain, SOB and abdominal pain. OBJECTIVE: Vital Signs Period Temp Pulse Resp BP Sys/Diego Pulse Ox Last 24 Hr 97.8 F-99.1 F 75-104 18-20 152-179/61-92 94-94 GENERAL: The patient is awake, alert, and oriented to person and place, in no acute distress. HEAD: Normal with no signs of trauma. EYES: PERRL, extraocular movements intact, sclera anicteric, conjunctiva clear. LUNGS: Crackles on R. axilla, decreased breath sounds on left axilla, no accessory muscle use, exam limited d/t body habitus. HEART: Regular rate and rhythm, S1, S2, exam limited d/t body habitus EXTREMITIES: fungal growth on skin from lower calves to the feet. 4/5 RUE strength, 3/5 LUE strength. Pt. was able to life both legs off the bed. NEUROLOGICAL: Cranial nerves II through XII grossly intact. Normal speech, gait not observed. PSYCH: Normal mood, normal affect. Laboratory Results - last 24 hr 11/02/17 11/02/17 11/03/17 14:50 15:00 06:00 WBC 8.9 RBC 3.91 Hgb 10.6 L Hct 32.4 MCV 82.7 MCH 27.0 MCHC 32.6 RDW 15.7 H Plt Count 244 MPV 7.9 Absolute Neuts (auto) 7.8 Neutrophils % 88.3 H Lymphocytes % 6.2 L D Monocytes % 4.9 Eosinophils % 0.1 Basophils % 0.5 Nucleated RBC % 0 Sodium Potassium Chloride Carbon Dioxide Anion Gap BUN Creatinine Creat Clearance w eGFR POC Glucometer Random Glucose Calcium Phosphorus Magnesium Total Bilirubin AST ALT Alkaline Phosphatase Total Protein Albumin Lipase Cancelled 99 11/03/17 11/03/17 11/03/17 06:00 06:34 12:11 WBC RBC Hgb Hct MCV MCH MCHC RDW Plt Count MPV Absolute Neuts (auto) Neutrophils % Lymphocytes % Monocytes % Eosinophils % Basophils % Nucleated RBC % Sodium 140 Potassium 4.2 Chloride 105 Carbon Dioxide 25 Anion Gap 10 BUN 45 H Creatinine 1.7 H Creat Clearance w eGFR 28.85 POC Glucometer 100 110 Random Glucose 98 Calcium 8.7 Phosphorus 2.7 Magnesium 2.1 Total Bilirubin 0.6 AST 16 ALT 16 Alkaline Phosphatase 100 D Total Protein 7.3 Albumin 2.8 L Lipase 11/03/17 16:35 WBC RBC Hgb Hct MCV MCH MCHC RDW Plt Count MPV Absolute Neuts (auto) Neutrophils % Lymphocytes % Monocytes % Eosinophils % Basophils % Nucleated RBC % Sodium Potassium Chloride Carbon Dioxide Anion Gap BUN Creatinine Creat Clearance w eGFR POC Glucometer 107 Random Glucose Calcium Phosphorus Magnesium Total Bilirubin AST ALT Alkaline Phosphatase Total Protein Albumin Lipase Active Medications Current Medications Acetaminophen (Tylenol -) 650 mg PO Q4H PRN PRN Reason: PAIN LEVEL 1-5 Apixaban (Eliquis -) 2.5 mg PO BID [facility] Last Admin: 11/03/17 10:23 Dose: 2.5 mg Furosemide (Lasix -) 40 mg PO DAILY [facility] Last Admin: 11/03/17 15:43 Dose: 40 mg Ertapenem 1 gm/ Sodium (Chloride) 50 mls @ 100 mls/hr IVPB DAILY [facility]; Protocol Last Admin: 11/03/17 12:12 Dose: 100 mls/hr Insulin Aspart (Novolog Vial Sliding Scale -) 1 vial SQ ACHS [facility]; Protocol Last Admin: 11/03/17 16:56 Dose: Not Given Metoprolol Succinate (Toprol Xl -) 100 mg PO DAILY [facility] Last Admin: 11/03/17 10:23 Dose: 100 mg Nystatin (Nystop Powder -) 1 applic TP DAILY [facility] Last Admin: 11/03/17 10:23 Dose: 1 applic Ondansetron HCl (Zofran Odt -) 4 mg SL Q6H PRN PRN Reason: NAUSEA AND/OR VOMITING Paroxetine HCl (Paxil -) 10 mg PO DAILY [facility] Last Admin: 11/03/17 10:23 Dose: 10 mg Valsartan (Diovan -) 320 mg PO DAILY [facility] Last Admin: 11/03/17 16:59 Dose: 320 mg Echo (11/03/17): L.A. mildly dilated, mild Aortic Sclerosis, Mild TR, trace-mild MR. ASSESSMENT/PLAN: 82 y.o. F w/ PMH of CHF, HTN, PVD, DM2, UTI, and Afib( on Eliquis) present to the ED with burning sensation on urination, covered in stool and dehydrated. #UTI - Hx. of UTI resistant to Levaquin, Bactrim and Unasyn - Given 1 gm Ceftriaxone in the ED( 11/02/17) - UA + - f/u UCx. and BCx. - consult ID for recommendation - 10.8k WBC, 91% Neutrophils #Stage 4 CKD - eGFR: 28-30 - D/C NS, Pt. is clinically a little wet #HTN - Meds reconciled -restarted home dose of Valsartan as SBP was 150s-170s -continue Metoprolol for HTN #Pressure/Incontinence Ulcers - consult wound care -q2h position change #DM2 - Insulin sliding scale #Afib -c/w Metoprolol and Eliquis #DVT PPx. - c/w eliquis until contact Juan Luis Mccollum for decision to prescribe Eliquis. If we D/C eliquis, start Heparin SQ. #Dispo - f/u DNR/ DNI status per patients wishes - consider SNF per patients wishes Visit type - Emergency Visit Emergency Visit: No - New Patient This patient is new to me today: No - Critical Care Critical Care patient: No - Discharge Referral Referred to [facility] Med P.C.: No
[2017-11-04] MEDS: INSULIN SLIDING SCALE (NOVOLOG) 1 VIAL SQ SCH ×4 (06:49→21:10)
[2017-11-04 07:37] LABS: EOS % 1.3 % (0-4.5); HEMATOCRIT 32.7 % (32.4-45.2); HEMOGLOBIN 10.6 GM/dL (10.7-15.3); LYMPH % 11.9 % (8-40); MCH 26.9 pg (25.7-33.7); MCHC 32.4 g/dl (32.0-36.0); MEAN PLT VOLUME 8.2 fl (7.5-11.1); MONO % 9.2 % (3.8-10.2); NEUT % 76.6 % (42.8-82.8); PLATELET COUNT 209 K/MM3 (134-434); RBC 3.94 M/mm3 (3.60-5.2); RDW 15.9 % (11.6-15.6); WHITE BLOOD COUNT 6.9 K/mm3 (4.0-10.0)
[2017-11-04 08:03] LABS: ALBUMIN 2.7 g/dl (3.4-5.0); ANION GAP 9 (8-16); BLOOD UREA NITROGEN 45 mg/dL (7-18); CHLORIDE 106 mmol/L (98-107); CO2 27 mmol/L (21-32); CREATININE 1.7 mg/dL (0.55-1.02); GLUCOSE,RANDOM 94 mg/dL (74-106); MAGNESIUM 1.9 mg/dL (1.8-2.4); PHOSPHOROUS 2.9 mg/dL (2.5-4.9); POTASSIUM 4.1 mmol/L (3.5-5.1); SGOT/AST 18 U/L (15-37); SGPT/ALT 18 U/L (12-78); SODIUM 142 mmol/L (136-145)
[2017-11-04 08:05] LABS: ALK PHOS 94 U/L (45-117); BILIRUBIN,TOTAL 0.5 mg/dL (0.2-1.0); TOT PROT 7.1 g/dl (6.4-8.2)
[2017-11-04] MEDS: NYSTATIN POWDER 100,000 UNITS/GM - 15 GM TOPICAL POWDER TP SCH (10:26)
[2017-11-04] MEDS: APIXABAN 2.5 MG TABLET PO SCH ×2 (10:26→21:09)
[2017-11-04] MEDS: FUROSEMIDE 40 MG TABLET (FP) PO SCH (10:26)
[2017-11-04] MEDS: VALSARTAN 160 MG TABLET (UD) PO SCH (10:26)
[2017-11-04] MEDS: PARoxetine HCL 10 MG TABLET (FP) PO SCH (10:26)
[2017-11-04] MEDS ORDERED: ALPRAZolam 0.25 MG TABLET PO ONE (11:15)
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
[2017-11-04] MEDS: ERTAPENEM SODIUM 1 GM in SODIUM CHLORIDE 50 ML IVPB SCH (14:24)
[2017-11-04] MEDS: ALPRAZolam 2 MG TABLET PO PRN (21:09)
[2017-11-05] MEDS: INSULIN SLIDING SCALE (NOVOLOG) 1 VIAL SQ SCH ×4 (06:06→21:38)
[2017-11-05 07:31] LABS: BASO % 1.3 % (0-2.0); EOS % 1.3 % (0-4.5); HEMATOCRIT 30.2 % (32.4-45.2); HEMOGLOBIN 9.9 GM/dL (10.7-15.3); LYMPH % 17.2 % (8-40); MCH 27.3 pg (25.7-33.7); MCHC 32.9 g/dl (32.0-36.0); MEAN CELL VOLUME 83.1 fl (80-96); MONO % 17.1 % (3.8-10.2); NEUT % 63.1 % (42.8-82.8); PLATELET COUNT 182 K/MM3 (134-434); RBC 3.63 M/mm3 (3.60-5.2); RDW 16.1 % (11.6-15.6); WHITE BLOOD COUNT 6.3 K/mm3 (4.0-10.0)
[2017-11-05 08:17] LABS: ANION GAP 8 (8-16); BLOOD UREA NITROGEN 47 mg/dL (7-18); CALCIUM 8.9 mg/dL (8.5-10.1); CHLORIDE 106 mmol/L (98-107); CO2 28 mmol/L (21-32); CREATININE 1.8 mg/dL (0.55-1.02); GLUCOSE,RANDOM 81 mg/dL (74-106); MAGNESIUM 1.9 mg/dL (1.8-2.4); PHOSPHOROUS 3.2 mg/dL (2.5-4.9); SODIUM 142 mmol/L (136-145)
[2017-11-05] MEDS: APIXABAN 2.5 MG TABLET PO SCH ×2 (10:37→22:22)
[2017-11-05] MEDS: ERTAPENEM SODIUM 1 GM in SODIUM CHLORIDE 50 ML IVPB SCH (10:37)
[2017-11-05] MEDS: VALSARTAN 160 MG TABLET (UD) PO SCH (10:37)
[2017-11-05] MEDS: FUROSEMIDE 40 MG TABLET (FP) PO SCH (10:38)
[2017-11-05] MEDS: PARoxetine HCL 10 MG TABLET (FP) PO SCH (10:38)
[2017-11-05] MEDS: NYSTATIN POWDER 100,000 UNITS/GM - 15 GM TOPICAL POWDER TP SCH (14:09)
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
[2017-11-05] MEDS ORDERED: PT OWN MED DRAWER 7, Y5N ONE (17:18)
[2017-11-05] MEDS: ALPRAZolam 2 MG TABLET PO PRN (22:23)
--- NOTE | 2017-11-06 05:27 | PN ---
Physical Exam: SUBJECTIVE: Patient seen and examined. No acute events overnight. Pt. is able to pass a good amount of urine and make stool. Pt. denies dysuria, chest pain, SOB or abdominal pain. Pt. says her legs feel sore. OBJECTIVE: Vital Signs Period Temp Pulse Resp BP Sys/Diego Pulse Ox Last 24 Hr 97.8 F-98.7 F 80-88 18-20 139-174/66-77 95-95 GENERAL: The patient is awake, alert, and fully oriented, in no acute distress. LUNGS: No crackles, limited d/t body habitus. HEART: Regular rate and rhythm, S1, S2, limited d/t body habitus ABDOMEN: Soft, nontender, nondistended, normoactive bowel sounds, no guarding, no rebound EXTREMITIES: warm, well-perfused, no edema, fungal growth on calves to feet b/ l. PSYCH: Normal mood, normal affect. SKIN: Warm, dry, normal turgor, fungal growth on calves to feet b/l Laboratory Results - last 24 hr 11/05/17 11/05/17 11/05/17 05:19 06:20 06:20 WBC 6.3 RBC 3.63 Hgb 9.9 L Hct 30.2 L MCV 83.1 MCH 27.3 MCHC 32.9 RDW 16.1 H Plt Count 182 MPV 8.0 Absolute Neuts (auto) 4.0 Neutrophils % 63.1 Lymphocytes % 17.2 D Monocytes % 17.1 H D Eosinophils % 1.3 Basophils % 1.3 Nucleated RBC % 0 Sodium 142 Potassium 4.0 Chloride 106 Carbon Dioxide 28 Anion Gap 8 BUN 47 H Creatinine 1.8 H Creat Clearance w eGFR 27.00 POC Glucometer 79 Random Glucose 81 Calcium 8.9 Phosphorus 3.2 Magnesium 1.9 11/05/17 11/05/17 11/05/17 11:50 17:08 20:19 WBC RBC Hgb Hct MCV MCH MCHC RDW Plt Count MPV Absolute Neuts (auto) Neutrophils % Lymphocytes % Monocytes % Eosinophils % Basophils % Nucleated RBC % Sodium Potassium Chloride Carbon Dioxide Anion Gap BUN Creatinine Creat Clearance w eGFR POC Glucometer 97 80 97 Random Glucose Calcium Phosphorus Magnesium HbA1c: 5.6% Active Medications Current Medications Acetaminophen (Tylenol -) 650 mg PO Q4H PRN PRN Reason: PAIN LEVEL 1-5 Alprazolam (Xanax -) 1 mg PO BID PRN PRN Reason: ANXIETY Last Admin: 11/05/17 22:23 Dose: 1 mg Apixaban (Eliquis -) 2.5 mg PO BID ON LICENSE OF [facility] Last Admin: 11/06/17 10:18 Dose: 2.5 mg Cefuroxime Axetil (Ceftin -) 250 mg PO BID ON [facility] OF [facility] Last Admin: 11/06/17 10:18 Dose: 250 mg Furosemide (Lasix -) 40 mg PO DAILY ON [facility] Last Admin: 11/06/17 10:18 Dose: 40 mg Insulin Aspart (Novolog Vial Sliding Scale -) 1 vial SQ ACHS ON LICENSE OF [facility]; Protocol Last Admin: 11/06/17 17:21 Dose: Not Given Metoprolol Succinate (Toprol Xl -) 100 mg PO DAILY [facility] Last Admin: 11/06/17 10:19 Dose: 100 mg Nystatin (Nystop Powder -) 1 applic TP DAILY [facility] Last Admin: 11/06/17 10:20 Dose: 1 applic Ondansetron HCl (Zofran Odt -) 4 mg SL Q6H PRN PRN Reason: NAUSEA AND/OR VOMITING Paroxetine HCl (Paxil -) 10 mg PO DAILY [facility] Last Admin: 11/06/17 10:19 Dose: 10 mg Valsartan (Diovan -) 320 mg PO DAILY [facility] Last Admin: 11/06/17 10:18 Dose: 320 mg ASSESSMENT/PLAN: 82 y.o. F w/ PMH of CHF, HTN, PVD, DM2, UTI, and Afib( on Eliquis) present to the ED with burning sensation on urination, covered in stool and dehydrated. #UTI - Hx. of UTI resistant to Levaquin, Bactrim and Unasyn - Given 1 gm Ceftriaxone in the ED( 11/02/17) - UA + - f/u UCx. and BCx. - Per ID start Cefuroxime 250 mg BID - 10.8k WBC, 91% Neutrophils #Stage 4 CKD - eGFR: 28-30 - D/C NS, Pt. is clinically a little wet #HTN - Meds reconciled -restarted home dose of Valsartan as SBP was 150s-170s -continue Metoprolol for HTN #Pressure/Incontinence Ulcers - consult wound care -q2h position change #DM2 - Insulin sliding scale #Afib -c/w Metoprolol and Eliquis #DVT PPx. - c/w eliquis until contact Juan Luis Mccollum for decision to prescribe Eliquis. If we D/C eliquis, start Heparin SQ. #Dispo - f/u DNR/ DNI status per patients wishes - consider SNF per patients wishes, Adira? Visit type - Emergency Visit Emergency Visit: No - New Patient This patient is new to me today: No - Critical Care Critical Care patient: No - Discharge Referral Referred to [facility] Med P.C.: No
[2017-11-06] MEDS: INSULIN SLIDING SCALE (NOVOLOG) 1 VIAL SQ SCH ×4 (06:22→21:28)
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
[2017-11-06] MEDS: VALSARTAN 160 MG TABLET (UD) PO SCH (10:18)
[2017-11-06] MEDS: APIXABAN 2.5 MG TABLET PO SCH ×2 (10:18→21:27)
[2017-11-06] MEDS: FUROSEMIDE 40 MG TABLET (FP) PO SCH (10:18)
[2017-11-06] MEDS: CEFUROXIME AXETIL 250 MG TABLET PO SCH ×2 (10:18→21:27)
[2017-11-06] MEDS: PARoxetine HCL 10 MG TABLET (FP) PO SCH (10:19)
[2017-11-06] MEDS: NYSTATIN POWDER 100,000 UNITS/GM - 15 GM TOPICAL POWDER TP SCH (10:20)
[2017-11-06 16:45] VITALS: BMI 40.7
[2017-11-07] MEDS: INSULIN SLIDING SCALE (NOVOLOG) 1 VIAL SQ SCH ×4 (07:02→21:24)
[2017-11-07] MEDS: FUROSEMIDE 40 MG TABLET (FP) PO SCH (10:00)
[2017-11-07] MEDS: CEFUROXIME AXETIL 250 MG TABLET PO SCH ×2 (10:01→21:24)
[2017-11-07] MEDS: PARoxetine HCL 10 MG TABLET (FP) PO SCH (10:01)
[2017-11-07] MEDS: APIXABAN 2.5 MG TABLET PO SCH ×2 (10:01→21:23)
[2017-11-07] MEDS: VALSARTAN 160 MG TABLET (UD) PO SCH (10:01)
[2017-11-07] MEDS: NYSTATIN POWDER 100,000 UNITS/GM - 15 GM TOPICAL POWDER TP SCH (10:01)
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
--- NOTE | 2017-11-07 16:41 | DS ---
Physical Exam: SUBJECTIVE: Patient seen and examined. OBJECTIVE: Vital Signs Period Temp Pulse Resp BP Sys/Diego Pulse Ox Last 24 Hr 97.7 F-99.3 F 73-96 20-20 137-162/71-94 93-95 PHYSICAL EXAM GENERAL: The patient is awake, alert, and fully oriented, in no acute distress. HEAD: Normal with no signs of trauma. EYES: PERRL, extraocular movements intact, sclera anicteric, conjunctiva clear. ENT: Ears normal, nares patent, oropharynx clear without exudates, moist mucous membranes. NECK: Trachea midline, full range of motion, supple. LUNGS: Breath sounds equal, clear to auscultation bilaterally, no wheezes, no crackles, no accessory muscle use. HEART: Regular rate and rhythm, S1, S2 without murmur, rub or gallop. ABDOMEN: Soft, nontender, nondistended, normoactive bowel sounds, no guarding, no rebound, no hepatosplenomegaly, no masses. EXTREMITIES: 2+ pulses, warm, well-perfused, no edema. NEUROLOGICAL: Cranial nerves II through XII grossly intact. Normal speech, gait not observed. PSYCH: Normal mood, normal affect. SKIN: Warm, dry, normal turgor, no rashes or lesions noted. LABS Laboratory Results - last 24 hr 11/06/17 11/06/17 11/07/17 17:20 21:01 05:44 POC Glucometer 96 110 90 11/07/17 11/07/17 11:14 16:07 POC Glucometer 103 113 HOSPITAL COURSE: Date of Admission:11/02/17 Date of Discharge: 11/07/17 Discharge Summary Reason For Visit: HYPERTENSION; RENAL FAILURE;CELLULITIS BILATE FEET Current Active Problems CKD (chronic kidney disease) stage 4, GFR 15-29 ml/min (Acute) DVT prophylaxis (Acute) Decubitus ulcer limited to breakdown of skin (stage 2) (Acute) Hypertension (Acute) Renal insufficiency (Acute) UTI (urinary tract infection), uncomplicated (Acute) Afib (Chronic) Diabetes (Chronic) Condition: Stable - Instructions Diet, Activity, Other Instructions: You were admitted for an infection of your bladder. You were given Cefuroxime (Cefetin), an antibiotic, as treatment. You have 1 more dose of Cefuroxime to take as prescribed. Please take Cefuroxime 250 mg tablet by mouth ONCE in the morning and ONCE in the evening. Please resume your home medications as prescribed. We have scheduled you [facility] at 9[facility]00 AM Please return to the ER if you experience chest pain, abdominal pain, or develop a fever. Referrals: Leonard Doshi, RES [Resident] - 1 Week Ina Tucker MD [Primary Care Provider] - Disposition: [facility] F[facility] - Home Medications Comprehensive Discharge Medication List: Ambulatory Orders Furosemide [Lasix -] 40 mg PO DAILY 11/02/17 Metoprolol Succinate 100 mg PO DAILY 11/02/17 Valsartan 320 mg PO DAILY 11/02/17 Apixaban [Eliquis] 2.5 mg PO BID 11/04/17 Cefuroxime Axetil [Ceftin -] 250 mg PO BID #2 tablet 11/07/17 Paroxetine HCl [Paxil -] 10 mg PO DAILY #30 tablet 11/07/17 - Discharge Referral [facility]erred to [facility] Med P.C.: No
--- NOTE | 2017-11-07 18:10 | PN ---
Physical Exam: SUBJECTIVE: Patient seen and examined. Overnight patient had no acute events. Pt. had no acute complaints and is ready for discharge. OBJECTIVE: Vital Signs Period Temp Pulse Resp BP Sys/Diego Pulse Ox Last 24 Hr 97.7 F-99.3 F 73-96 20-20 137-162/77-94 93-95 GENERAL: The patient is awake, alert, and fully oriented, in no acute distress, sleeping comfortably. LUNGS: Breath sounds equal, clear to auscultation bilaterally, no wheezes, no accessory muscle use, limited d/t body habitus HEART: Regular rate and rhythm, S1, S2, limited d/t body habitus ABDOMEN: Soft, nontender, nondistended, normoactive bowel sounds, no guarding, no rebound EXTREMITIES: warm, well-perfused, no edema, no calf pain NEUROLOGICAL: Cranial nerves II through XII grossly intact. Normal speech, gait not observed. PSYCH: Normal mood, normal affect. SKIN: fungal growth on the calves to the feet b/l Laboratory Results - last 24 hr 11/06/17 11/07/17 11/07/17 21:01 05:44 11:14 POC Glucometer 110 90 103 11/07/17 16:07 POC Glucometer 113 Active Medications Current Medications Acetaminophen (Tylenol -) 650 mg PO Q4H PRN PRN Reason: PAIN LEVEL 1-5 Last Admin: 11/07/17 17:46 Dose: 650 mg Alprazolam (Xanax -) 1 mg PO BID PRN PRN Reason: ANXIETY Last Admin: 11/05/17 22:23 Dose: 1 mg Apixaban (Eliquis -) 2.5 mg PO BID [facility] Last Admin: 11/07/17 10:01 Dose: 2.5 mg Cefuroxime Axetil (Ceftin -) 250 mg PO BID [facility] Last Admin: 11/07/17 10:01 Dose: 250 mg Furosemide (Lasix -) 40 mg PO DAILY [facility] Last Admin: 11/07/17 10:00 Dose: 40 mg Insulin Aspart (Novolog Vial Sliding Scale -) 1 vial SQ ACHS [facility]; Protocol Last Admin: 11/07/17 16:34 Dose: Not Given Metoprolol Succinate (Toprol Xl -) 100 mg PO DAILY [facility] Last Admin: 11/07/17 10:00 Dose: 100 mg Nystatin (Nystop Powder -) 1 applic TP DAILY [facility] Last Admin: 11/07/17 10:01 Dose: 1 applic Ondansetron HCl (Zofran Odt -) 4 mg SL Q6H PRN PRN Reason: NAUSEA AND/OR VOMITING Paroxetine HCl (Paxil -) 10 mg PO DAILY [facility] Last Admin: 11/07/17 10:01 Dose: 10 mg Valsartan (Diovan -) 320 mg PO DAILY [facility] Last Admin: 11/07/17 10:01 Dose: 320 mg ASSESSMENT/PLAN: 82 y.o. F w/ PMH of CHF, HTN, PVD, DM2, UTI, and Afib( on Eliquis) present to the ED with burning sensation on urination, covered in stool and dehydrated. #UTI - Hx. of UTI resistant to Levaquin, Bactrim and Unasyn - Given 1 gm Ceftriaxone in the ED( 11/02/17) - UA + - 10.8k WBC, 91% Neutrophils - f/u UCx. and BCx. - Per ID complete Cefuroxime 250 mg BID on 11/08/17 #Stage 4 CKD - eGFR: 28-30 - D/C NS, Pt. is clinically a little wet #HTN - Meds reconciled -restarted home dose of Valsartan as SBP was 150s-170s -continue Metoprolol for HTN #Pressure/Incontinence Ulcers - consult wound care -q2h position change #DM2 - Insulin sliding scale -hold Januvia on D/C #Afib -c/w Metoprolol and Eliquis #DVT PPx. - c/w eliquis until contact Juan Luis Mccollum for decision to prescribe Eliquis. If we D/C eliquis, start Heparin SQ. #Dispo - SNF per patients wishes, Adira Visit type - Emergency Visit Emergency Visit: No - New Patient This patient is new to me today: No - Critical Care Critical Care patient: No - Discharge Referral Referred to [facility] Med P.C.: No
[2017-11-07] MEDS: ALPRAZolam 2 MG TABLET PO PRN (19:35)
[2017-11-08] MEDS: INSULIN SLIDING SCALE (NOVOLOG) 1 VIAL SQ SCH ×4 (06:04→21:08)
--- NOTE | 2017-11-08 08:22 | PN ---
Physical Exam: SUBJECTIVE: Patient seen and examined. No acute events overnight. Pt. says he feels better and that her leg soreness is also better. IV removed. Yesterday at 6pm Pt.'s blood pressure went up to 187/95. Rpt BP was 153/78. OBJECTIVE: Vital Signs Period Temp Pulse Resp BP Sys/Diego Pulse Ox Last 24 Hr 97.7 F-98.2 F 57-80 18-20 137-187/77-98 93-97 GENERAL: The patient is awake, alert, and fully oriented, in no acute distress. LUNGS: Breath sounds equal, clear to auscultation bilaterally, no wheezes, no crackles, no accessory muscle use- limited d/t body habitus HEART: Regular rate and rhythm, S1, S2- limited d/t body habitus ABDOMEN: Soft, nontender, nondistended, normoactive bowel sounds, no guarding, no rebound EXTREMITIES: fungal growth on calves to feet, warm, well-perfused, no edema. PSYCH: Normal mood, normal affect. SKIN: Warm, dry, normal turgor Laboratory Results - last 24 hr 11/07/17 11/07/17 11/07/17 11:14 16:07 20:39 POC Glucometer 103 113 87 11/08/17 05:12 POC Glucometer 84 Active Medications Current Medications Acetaminophen (Tylenol -) 650 mg PO Q4H PRN PRN Reason: PAIN LEVEL 1-5 Last Admin: 11/07/17 17:46 Dose: 650 mg Amlodipine Besylate (Norvasc -) 2.5 mg PO DAILY [facility] Apixaban (Eliquis -) 2.5 mg PO BID [facility] Last Admin: 11/07/17 21:23 Dose: 2.5 mg Cefuroxime Axetil (Ceftin -) 250 mg PO BID [facility] Last Admin: 11/07/17 21:24 Dose: 250 mg Furosemide (Lasix -) 40 mg PO DAILY [facility] Last Admin: 11/07/17 10:00 Dose: 40 mg Insulin Aspart (Novolog Vial Sliding Scale -) 1 vial SQ ACHS [facility]; Protocol Last Admin: 11/08/17 06:04 Dose: Not Given Metoprolol Succinate (Toprol Xl -) 100 mg PO DAILY [facility] Last Admin: 11/07/17 10:00 Dose: 100 mg Nystatin (Nystop Powder -) 1 applic TP DAILY [facility] Last Admin: 11/07/17 10:01 Dose: 1 applic Ondansetron HCl (Zofran Odt -) 4 mg SL Q6H PRN PRN Reason: NAUSEA AND/OR VOMITING Paroxetine HCl (Paxil -) 10 mg PO DAILY [facility] Last Admin: 11/07/17 10:01 Dose: 10 mg Valsartan (Diovan -) 320 mg PO DAILY [facility] Last Admin: 11/07/17 10:01 Dose: 320 mg ASSESSMENT/PLAN: 82 y.o. F w/ PMH of CHF, HTN, PVD, DM2, UTI, and Afib( on Eliquis) present to the ED with burning sensation on urination, covered in stool and dehydrated. #UTI - Hx. of UTI resistant to Levaquin, Bactrim and Unasyn - Given 1 gm Ceftriaxone in the ED( 11/02/17) - UA + - 10.8k WBC, 91% Neutrophils - f/u UCx. and BCx. - Per ID completed Cefuroxime 250 mg BID on 11/08/17 - resolved #Stage 4 CKD - eGFR: 28-30 - D/C NS, Pt. was clinically a little wet #HTN - Meds reconciled -restarted home dose of Valsartan as SBP was 150s-170s -continue Metoprolol for HTN - started 2.5 mg Amlodipine PO---> Increased Amlodipine to 5 mg PO (11/08/17) #Pressure/Incontinence Ulcers - consult wound care -q2h position change #DM2 - Insulin sliding scale -hold Januvia on D/C #Afib -c/w Metoprolol and Eliquis #DVT PPx. - c/w eliquis until contact Juan Luis Mccollum for decision to prescribe Eliquis. If we D/C eliquis, start Heparin SQ. #Dispo - SNF per patients wishes, Adira Visit type - Emergency Visit Emergency Visit: Yes ED Registration Date: 11/02/17 Care time: The patient presented to the Emergency Department on the above date and was hospitalized for further evaluation of their emergent condition. - New Patient This patient is new to me today: No - Critical Care Critical Care patient: No - Discharge Referral Referred to [facility] Med P.C.: No
[2017-11-08] MEDS: FUROSEMIDE 40 MG TABLET (FP) PO SCH (09:16)
[2017-11-08] MEDS: NYSTATIN POWDER 100,000 UNITS/GM - 15 GM TOPICAL POWDER TP SCH (09:16)
[2017-11-08] MEDS: VALSARTAN 160 MG TABLET (UD) PO SCH (09:16)
[2017-11-08] MEDS: APIXABAN 2.5 MG TABLET PO SCH ×2 (09:16→21:08)
[2017-11-08] MEDS: CEFUROXIME AXETIL 250 MG TABLET PO SCH ×2 (09:16→21:08)
[2017-11-08] MEDS: PARoxetine HCL 10 MG TABLET (FP) PO SCH (09:16)
[2017-11-08] MEDS ORDERED: amLODIPine BESYLATE 2.5 MG TABLET (FP) PO SCH (10:00)
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
--- NOTE | 2017-11-08 13:55 | DS ---
Physical Exam: SUBJECTIVE: Patient seen and examined. No acute events overnight. Pt. says he feels better and that her leg soreness is also better. IV removed. Yesterday at 6pm Pt.'s blood pressure went up to 187/95. Rpt BP was 153/78. OBJECTIVE: Vital Signs Period Temp Pulse Resp BP Sys/Diego Pulse Ox Last 24 Hr 97.7 F-97.9 F 57-80 18-20 149-187/75-98 94-97 PHYSICAL EXAM GENERAL: The patient is awake, alert, and fully oriented, in no acute distress. LUNGS: Breath sounds equal, clear to auscultation bilaterally, no wheezes, no crackles, no accessory muscle use- limited d/t body habitus HEART: Regular rate and rhythm, S1, S2- limited d/t body habitus ABDOMEN: Soft, nontender, nondistended, normoactive bowel sounds, no guarding, no rebound EXTREMITIES: fungal growth on calves to feet, warm, well-perfused, no edema. PSYCH: Normal mood, normal affect. SKIN: Warm, dry, normal turgor LABS Laboratory Results - last 24 hr 11/07/17 11/07/17 11/08/17 16:07 20:39 05:12 POC Glucometer 113 87 84 11/08/17 11:37 POC Glucometer 97 HOSPITAL COURSE: Date of Admission:11/02/17 Date of Discharge: 11/08/17 Pre-hospital: 82 y.o. F w/ PMH of CHF, HTN, PVD, DM2, UTI, and Afib (on Eliquis) presents to the ED after being found by her neighbor sitting in her own stool and urine for 3 days. Pt. is in the care of her son and daughter in-law and has a health aide visiting once a month. Pt. has food prepared for her by her son but d/t the daughter in law having a recent stroke was unable to fully attend to the patient. Pt. has had a previous hx. 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 Hospital: Pt. was admitted for workup for drug resistant UTI. UA was positive on admission and UCx. was collected and sent. Pt. had leukocytosis. Pt. began treatment on an Abx. regimen that would treat the presumptive ESBL+ strains that she had in the past. Pt. received an echocardiogram which showed grossly normal LVF and RVF, mild TR, and mild MR. Pt. was evaluated by Physical Therapy and was determined to benefit from SNF placement. All treatment courses and medications were discussed with the patient. Pt. showed clinical signs of improvement and was discharged. Minutes to complete discharge: 34 Discharge Summary Reason For Visit: HYPERTENSION; RENAL FAILURE;CELLULITIS BILATE FEET Current Active Problems CKD (chronic kidney disease) stage 4, GFR 15-29 ml/min (Acute) DVT prophylaxis (Acute) Decubitus ulcer limited to breakdown of skin (stage 2) (Acute) Hypertension (Acute) Renal insufficiency (Acute) UTI (urinary tract infection), uncomplicated (Acute) Afib (Chronic) Diabetes (Chronic) Condition: Stable - Instructions Diet, Activity, Other Instructions: You were admitted for an infection of your bladder. You were given Cefuroxime (Cefetin), an antibiotic, as treatment. You have 1 more dose of Cefuroxime to take as prescribed. Please take Cefuroxime 250 mg tablet by mouth ONCE in the evening. We have added a new medication to treat your blood pressure called Amlodipine Please take Amlodipine by mouth daily as prescribed. Please resume your home medications as prescribed. We have scheduled you for a follow up visit with Leonard Doshi MD at [address] at 9:00 AM Please return to the ER if you experience chest pain, abdominal pain, or develop a fever. Referrals: Leonard Doshi, RES [Resident] - 1 Week Ina Tucker MD [Primary Care Provider] - Disposition: [facility] - Home Medications Comprehensive Discharge Medication List: Ambulatory Orders Furosemide [Lasix -] 40 mg PO DAILY 11/02/17 Metoprolol Succinate 100 mg PO DAILY 11/02/17 Valsartan 320 mg PO DAILY 11/02/17 Apixaban [Eliquis] 2.5 mg PO BID 11/04/17 Cefuroxime Axetil [Ceftin -] 250 mg PO BID #2 tablet 11/07/17 Paroxetine HCl [Paxil -] 10 mg PO DAILY #30 tablet 11/07/17 Amlodipine Besylate 5 mg PO DAILY #15 tablet 11/08/17 This patient is new to me today: No Emergency Visit: Yes ED Registration Date: 11/02/17 Care time: The patient presented to the Emergency Department on the above date and was hospitalized for further evaluation of their emergent condition. Critical Care patient: No - Discharge Referral Referred to [facility] Med P.C.: No
[2017-11-08] MEDS ORDERED: amLODIPine BESYLATE 2.5 MG TABLET (FP) PO ONE (16:30)
[2017-11-08] MEDS ORDERED: ALPRAZolam 0.25 MG TABLET PO ONE (20:45)
[2017-11-09] MEDS: INSULIN SLIDING SCALE (NOVOLOG) 1 VIAL SQ SCH ×4 (06:18→22:00)
[2017-11-09] MEDS: amLODIPine BESYLATE 5 MG TABLET (FP) PO SCH (09:21)
[2017-11-09] MEDS: VALSARTAN 160 MG TABLET (UD) PO SCH (09:22)
[2017-11-09] MEDS: PARoxetine HCL 10 MG TABLET (FP) PO SCH (09:22)
[2017-11-09] MEDS: CEFUROXIME AXETIL 250 MG TABLET PO SCH ×2 (09:22→22:15)
[2017-11-09] MEDS: NYSTATIN POWDER 100,000 UNITS/GM - 15 GM TOPICAL POWDER TP SCH (09:22)
[2017-11-09] MEDS: APIXABAN 2.5 MG TABLET PO SCH ×2 (09:22→22:15)
[2017-11-09] MEDS: FUROSEMIDE 40 MG TABLET (FP) PO SCH (09:22)
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
[2017-11-10] MEDS ORDERED: ALPRAZolam 0.25 MG TABLET PO ONE (06:48)
[2017-11-10] MEDS: INSULIN SLIDING SCALE (NOVOLOG) 1 VIAL SQ SCH ×2 (07:01→13:13)
[2017-11-10] MEDS: CEFUROXIME AXETIL 250 MG TABLET PO SCH (10:33)
[2017-11-10] MEDS: VALSARTAN 160 MG TABLET (UD) PO SCH (10:33)
[2017-11-10] MEDS: NYSTATIN POWDER 100,000 UNITS/GM - 15 GM TOPICAL POWDER TP SCH (10:34)
[2017-11-10] MEDS: PARoxetine HCL 10 MG TABLET (FP) PO SCH (10:34)
[2017-11-10] MEDS: amLODIPine BESYLATE 5 MG TABLET (FP) PO SCH (10:34)
[2017-11-10] MEDS: APIXABAN 2.5 MG TABLET PO SCH (10:34)
[2017-11-10] MEDS: FUROSEMIDE 40 MG TABLET (FP) PO SCH (10:34)
[2017-11-10 13:41] VITALS: BP 154/93; PULSE 78; TEMP 97.5
== END 2017-11-10 13:52 | DRG 923 ==
LOC: JER 11:59 → JERBED 16:56 → OBSVTOIN 18:49 → J4S 11-03 00:17
PROVIDERS: ADMIT Hospitalist; ATTEND Internal Medicine
DX: T76.01XA Adult neglect or abandonment, suspected, initial encounter (principal); Z68.41 Body mass index [BMI] 40.0-44.9, adult; N39.0 Urinary tract infection, site not specified; I50.32 Chronic diastolic (congestive) heart failure; L03.116 Cellulitis of left lower limb; L03.115 Cellulitis of right lower limb; I48.91 Unspecified atrial fibrillation; I73.9 Peripheral vascular disease, unspecified; E66.9 Obesity, unspecified; I27.20 Pulmonary hypertension, unspecified; E11.9 Type 2 diabetes mellitus without complications; I11.0 Hypertensive heart disease with heart failure; B37.2 Candidiasis of skin and nail; D72.829 Elevated white blood cell count, unspecified; I07.1 Rheumatic tricuspid insufficiency; E86.0 Dehydration; L89.152 Pressure ulcer of sacral region, stage 2; F41.9 Anxiety disorder, unspecified; B96.20 Unspecified Escherichia coli [E. coli] as the cause of diseases classified elsewhere; Z85.820 Personal history of malignant melanoma of skin; Z89.422 Acquired absence of other left toe(s)
CPT/HCPCS: 36415; 71045-TC-FY; 80048; 80053; 81003; 81015; 82550; 82962; 83036; 83690; 83735; 84100; 84484; 85025; 87081; 87086; 87186; 93005; 93010; 93306-TC; 94761; 97162-GP; 99284-25; G0378; J7030